=== PATIENT | male | born 1965 | race Caucasian/White ===

== ENCOUNTER 2019-02-18 10:42 | Inpatient (IN) | payer MEDICARE, OTHER ==
[~2019-02-18] VITALS: Ht 165.1 cm; Wt 77.0 kg
[~2019-02-18 10:42] MED LIST: Accu-Chek Test Strip XX; CARV6.25 PO; FER325 PO; FURO40TA4 PO; NPH,100V SC
[2019-02-18] MEDS ORDERED: ACETAMINOPHEN 325 MG TAB PO STA (10:56)
[2019-02-18] MEDS ORDERED: morphine 4 MG/ML VIAL IV STA (10:56)
[2019-02-18] MEDS ORDERED: CEFEPIME 2GM/50 ML (PMX) 50 ML IVPB STA (10:56)
[2019-02-18] MEDS ORDERED: ONDANSETRON 4 MG INJ IV STA (10:56)
[2019-02-18] MEDS ORDERED: SODIUM CHLORIDE 0.9% 1L BAG IV* STA (10:56)
[2019-02-18] MEDS ORDERED: VANCOMYCIN 1 GM (PMX) 250 ML IVPB ONE (11:00)
[2019-02-18] MEDS ORDERED: ASPI81TA52 PO (11:16)
[2019-02-18] MEDS ORDERED: CALC667C PO (11:16)
[2019-02-18] MEDS ORDERED: ATOR40TA68 PO (11:17)
[2019-02-18] MEDS ORDERED: AMLO-147 PO (11:17)
[2019-02-18] MEDS ORDERED: CARV25TA79 PO (11:17)
[2019-02-18] MEDS ORDERED: GLIP10TA14 PO (11:18)
[2019-02-18] MEDS ORDERED: INSU100I33 SC (11:18)
--- NOTE | 2019-02-18 12:14 | ERD ---
ER Documentation Chief Complaint Chief Complaint chills, body aches, ap, diualysis yesterday HPI 53-year-old male who presents to the emergency with family members who are interpreting. The patient describes approximately 24 hours of symptoms including fevers, chills, body aches. Possible generalized abdominal pain with mild nausea. No diarrhea or constipation. The patient is a dialysis patient with last dialysis yesterday. ROS All systems reviewed and are negative except as per history of present illness. Medications Home Meds Reported Medications Insulin Glargine,Hum.rec.anlog (Basaglar Kwikpen U-100) 100 Unit/1 Ml Insuln.pen, 20 UNIT SC QHS, EA 02/18/19 Glipizide* (Glipizide*) 10 Mg Tablet, 10 MG PO AC BREAKFAST DINNER, TAB 02/18/19 Atorvastatin* (Atorvastatin*) 40 Mg Tablet, 40 MG PO QHS, #30 TAB 02/18/19 Carvedilol* (Carvedilol*) 25 Mg Tablet, 25 MG PO BID, #60 TAB 02/18/19 Amlodipine Besylate* (Amlodipine Besylate*) 10 Mg Tablet, 10 MG PO DAILY, #30 TAB 02/18/19 Calcium Acetate* (Calcium Acetate*) 667 Mg Capsule, 667 MG PO WITH LUNCH, #30 CAP 02/18/19 Aspirin (Low Dose Aspirin) 81 Mg Tablet.dr, 81 MG PO DAILY, #30 TAB 02/18/19 Discontinued Scripts Nph, Human Insulin Isophane (Humulin N) 100 Unit/Ml Solution, 18 UNIT SC BID for 30 Days, VIAL 3 Refills Prov:RASANGITA,ELIZABETH S. 01/26/15 Ferrous Sulfate* (Ferrous Sulfate*) 325 Mg Tabec, 325 MG PO DAILY for 30 Days, 2 Refills Prov:RAHI,ELIZABETH S. 01/26/15 Carvedilol* (Coreg*) 6.25 Mg Tab, 6.25 MG PO BID for 30 Days, 2 Refills Prov:RAHI,ELIZABETH S. 01/26/15 Furosemide (Lasix) 40 Mg Tab, 40 MG PO DAILY for 30 Days, TAB 1 Refill Prov:NHUNG SMITHELIZABETH S. 01/26/15 [Accu-Chek Test Strip] 1 EA EA No Conflict Check, 1 EA XX 02 for 30 Days, EA 2 Refills Prov:ELIZABETH SMITH 01/26/15 Allergies Allergies: Coded Allergies: No Known Allergy (Unverified , 02/18/19) PMhx/Soc History of Surgery: Yes (PICC line placement, dialysis catheter on right upper chest wall) Anesthesia Reaction: No Hx Neurological Disorder: No Hx Respiratory Disorders: No Hx Cardiac Disorders: Yes (HTN, high cholesterol) Hx Psychiatric Problems: No Hx Miscellaneous Medical Probl: Yes (DM, ESRD) Hx Alcohol Use: No Hx Substance Use: No Hx Tobacco Use: No Smoking Status: Never smoker FmHx Family History: diabetes Physical Exam Vitals Vital Signs Date Temp Pulse Resp B/P (MAP) Pulse Ox O2 O2 Flow FiO2 Time Delivery Rate 02/18/19 114 25 124/78 98 Nasal 3.0 12:00 (93) Cannula 02/18/19 103.0 11:43 02/18/19 Nasal 2 11:21 Cannula 02/18/19 103.9 113 18 143/81 99 10:47 (101) Physical Exam General: Well developed, well nourished, no acute distress Head: Normocephalic, atraumatic. Eyes: Pupils equally reactive, EOM intact ENT: Moist mucous membranes Neck: Supple, no lymphadenopathy Respiratory: Lungs clear bilaterally, no distress Cardiovascular: RRR, no murmurs, rubs, or gallops Abdominal: Soft, non-tender, non-distended, no peritoneal signs : Deferred MSK: No edema, no unilateral swelling, 5/5 strength, right upper extremity AV fistula with good bruit and thrill Neurologic: Alert and oriented, moving all extremities, normal speech, no focal weakness, no cerebellar signs Skin: No rash Psych: Normal mood Result Diagram: 02/18/19 1130 02/18/19 1130 Results 24 hrs Laboratory Tests Test 02/18/19 11:17 02/18/19 11:30 POC Venous Lactate 2.7 mmol/L White Blood Count 16.0 10^3/ul Red Blood Count 3.60 10^6/ul Hemoglobin 11.2 g/dl Hematocrit 31.5 % Mean Corpuscular Volume 87.5 fl Mean Corpuscular Hemoglobin 31.1 pg Mean Corpuscular Hemoglobin Concent 35.6 g/dl Red Cell Distribution Width 13.3 % Platelet Count 143 10^3/UL Mean Platelet Volume 11.0 fl Immature Granulocytes % 0.600 % Neutrophils % 89.2 % Lymphocytes % 4.2 % Monocytes % 5.7 % Eosinophils % 0.0 % Basophils % 0.3 % Nucleated Red Blood Cells % 0.0 /100WBC Immature Granulocytes # 0.090 10^3/ul Neutrophils # 14.3 10^3/ul Lymphocytes # 0.7 10^3/ul Monocytes # 0.9 10^3/ul Eosinophils # 0.0 10^3/ul Basophils # 0.1 10^3/ul Nucleated Red Blood Cells # 0.0 10^3/ul Sodium Level 138 mmol/L Potassium Level 4.4 mmol/L Chloride Level 91 mmol/L Carbon Dioxide Level 34 mmol/L Anion Gap 13 Blood Urea Nitrogen 29 mg/dl Creatinine 4.95 mg/dl Est Glomerular Filtrat Rate mL/min 12 mL/min Glucose Level 195 mg/dl Calcium Level 8.7 mg/dl Total Bilirubin 0.7 mg/dl Direct Bilirubin 0.00 mg/dl Indirect Bilirubin 0.7 mg/dl Aspartate Amino Transf (AST/SGOT) 41 IU/L Alanine Aminotransferase (ALT/SGPT) 20 IU/L Alkaline Phosphatase 55 IU/L Troponin I < 0.012 ng/ml Total Protein 8.4 g/dl Albumin 4.3 g/dl Globulin 4.10 g/dl Albumin/Globulin Ratio 1.04 Lipase 92 U/L Current Medications Medications Dose Sig/Steve Start Time Status Last (Trade) Ordered Route PRN Stop Time Admin Dose Reason Admin Sodium 2,300 ml BOLUS OVER 2 02/18/19 DC 02/18/19 Chloride HOURS STAT 10:56 02/18/19 11:42 (NS) IV* 10:57 650 mg ONCE STAT 02/18/19 DC 02/18/19 Acetaminophen PO 10:56 02/18/19 11:43 (Tylenol 10:57 Tab) Morphine 4 mg ONCE STAT 02/18/19 DC 02/18/19 Sulfate IV 10:56 02/18/19 11:43 (morphine) 10:57 Ondansetron 4 mg ONCE STAT 02/18/19 DC 02/18/19 HCl (Zofran IV 10:56 02/18/19 11:42 Inj) 10:57 Cefepime HCl 50 ml @ ONCE STAT 02/18/19 DC 02/18/19 100 mls/hr IVPB 10:56 02/18/19 11:43 11:25 Vancomycin 250 ml @ ONCE ONCE 02/18/19 HCl 125 mls/hr IVPB 11:00 02/18/19 12:59 Ondansetron 4 mg ER BRIDGE 02/18/19 HCl (Zofran PRN IV 12:30 02/19/19 Inj) NAUSEA/VOMITI 12:29 NG 650 mg ER BRIDGE 02/18/19 Acetaminophen PRN PO 12:30 02/19/19 (Tylenol .MILD PAIN 12:29 Tab) 1-3 OR TEMP Procedures/MDM EKG, MONITORS, & DIAGNOSTIC IMAGING: EKG: I reviewed and interpreted a 12-lead EKG. Rhythm: Normal sinus rhythm ST Changes: No contiguous ST segment elevations T waves: No contiguous T wave inversions Impression: [No evidence of acute cardiac ischemia] Chest x-ray: I reviewed and interpreted a 1 view of the chest Mediastinum: No enlargement Cardiac silhouette: No cardiomegaly Airspace: Clear lung john bilaterally without evidence of pneumothorax Bones: No evidence of fracture CT abdomen and pelvis: IMPRESSION: 1. Mild atrophic kidneys with mild renal cortical scarring. 2. Bilateral multiple small 2-4 mm non-obstructing calcified calculi. No obstructive uropathy bilaterally. 3. No gastrointestinal disease. 4. Tiny fat containing umbilical hernia without herniated hour strangulation. LAB INTERPRETATION: I reviewed the laboratory testing and it shows leukocytosis, elevated lactic acid MEDICAL DECISION MAKING: Patient presents to the emergency room with fever, Sirs criteria and multiple complaints including myalgia. The patient does have increased risk for bacteremia including dialysis. However, no clear source at this time. No evidence of meningitis. Patient having mild abdominal pain. CT imaging appropriate. Sepsis screening was initiated. ER COURSE: * The patient seems to be tolerating fluid bolus nicely. Blood cultures prior to broad-spectrum antibiotics. Antipyretics provided. Vital signs improving. * Patient continues to protect his airway * No clear source of infection at this time. Continue to monitor but the patient does not meet septic criteria in the emergency room setting given no source of infection. CONSULTATION: [None] DISPOSITION PLAN: Accepting care team and consultations: I discussed the current laboratory data, diagnostic imaging and emergency care provided. Admitting team: Dr. Swartz Admitting team indication: Insurance directed Of note the patient does have Sirs in the emergency room but no clear source of infection. Empiric treatment was initiated. Departure Diagnosis: Primary Impression: SIRS (systemic inflammatory response syndrome) Additional Impression: End stage renal disease on dialysis Condition: Stable SUZANNE ARCOS MD Feb 18, 2019 12:14
[2019-02-18] MEDS ORDERED: ONDANSETRON 4 MG INJ IV PRN ×2 (12:30→13:00)
[2019-02-18] MEDS ORDERED: ACETAMINOPHEN 325 MG TAB PO PRN (12:30)
[2019-02-18] MEDS ORDERED: NACL 0.9% 3 ML SYG IV SCH (13:00)
[2019-02-18] MEDS ORDERED: morphine 2 MG INJ IV PRN (13:00)
[2019-02-18] MEDS ORDERED: HYDROCODONE/APAP (5/325) TAB PO PRN (13:00)
[2019-02-18] MEDS ORDERED: VANCOMYCIN IV PER PHARMACY XX SCH (13:00)
[2019-02-18] MEDS: SOD CHLORIDE 0.9% 1,000 ML IV SCH (14:18)
[2019-02-18] MEDS ORDERED: VANCOMYCIN 500 MG (PMX) 100 ML IVPB ONE (15:00)
[2019-02-18] MEDS: PIPER-TAZO 2.25 GM (PMX) 50 ML IVPB SCH ×2 (16:33→20:34)
[2019-02-18] MEDS: ACETAMINOPHEN 325 MG TAB PO PRN (17:44)
[2019-02-18] MEDS ORDERED: PIPER-TAZO 3.375 GM IV (PMX) 100 ML IVPB SCH (18:00)
[2019-02-18 18:31] VITALS: BP 114/68; PULSE 102; RESP 18
[2019-02-18 20:00] VITALS: BP 105/50; PULSE 98; RESP 19; Ht 165.1 cm; Wt 77.0 kg
[2019-02-18] MEDS ORDERED: FAMOTIDINE 20 MG INJ IV SCH (21:00)
--- NOTE | 2019-02-18 21:49 | QN ---
Documentation Comment pt was seen and examined DANA CASAS MD Feb 18, 2019 21:49
--- NOTE | 2019-02-18 22:28 | CONS ---
DATE OF ADMISSION: 02/18/2019 DATE OF CONSULTATION: 02/18/2019 TYPE OF CONSULTATION: Renal. REASON FOR CONSULTATION: Hemodialysis. HISTORY OF PRESENTING ILLNESS: This is a 53-year-old male with a history of end-stage renal disease on hemodialysis Friday, and Friday for past 1 year, followed at [facility] hypertension, hyperlipidemia, diabetes, presented to the emergency department complaining of fever s and chills for past 2 to 3 days. According to the patient, the patient had some little abdominal p ain with mild nausea. The patient has had PermCath for 1 year. The patient had a left upper extremi ty fistula. He has been followed by Dr. Moran as an outpatient. It has not been yet used. The patie nt denied any vomiting, diarrhea or any shortness of breath. On arrival to ED, fevers were 103.9, bl ood pressure was 143/81. Labs showed white count of 16.0, hemoglobin 11.2, platelet count 143, potas sium of 4.4, BUN 129 and creatinine 4.95. Lactate was 2.7. CT of the abdomen and pelvis was negativ e. Chest x-ray was negative and the patient was admitted for further management. PAST MEDICAL HISTORY: 1. End-stage renal disease on hemodialysis Friday, and Friday, followed on [facility]. 2. Diabetes. 3. Hypertension. 4. Hyperlipidemia. 5. Diabetes with complication or diabetic retinopathy, nephropathy. MEDICATIONS TAKING AT HOME: 1. Amlodipine 10. 2. Atorvastatin 40. 3. Coreg 25 b.i.d. 4. Aspirin 81. 5. Calcium acetate 667 with meals. 6. Glipizide 10 mg p.o. at breakfast. 7. Lantus 20 units at bedtime. SOCIAL HISTORY: Ex-drinker. Denies any history of smoking, any drug use. Currently lives at home w ith family. FAMILY HISTORY: Noncontributory. REVIEW OF SYSTEMS: The patient complained of generalized body aches, fevers and chills. Last dialys is was yesterday. Denied any cough, any shortness of breath. Has some mild abdominal pain. Denies any nausea, vomiting, any hematemesis, any melena, any bright red blood per rectum. PHYSICAL EXAMINATION: VITAL SIGNS: Initially shows temperature 103.9, pulse was 113, blood pressure 143/81. GENERAL: The patient is awake, alert, oriented, does not appear to in any distress. HEENT: Pupils are equal, round, reactive to light. NECK: Supple. No JVD. HEART: Tachycardic. LUNGS: Clear to auscultation bilaterally. ABDOMEN: Soft, nontender, nondistended, positive normoactive bowel sounds. EXTREMITIES: No clubbing, cyanosis or edema. The patient has a right PermCath in place, also has a left upper extremity fistula. The fistula is deep; however, has some bruit. LABORATORY DATA: Potassium 4.4, BUN of 129, creatinine 4.95. Lactic acid 2.7. Glucose 197. AST 41 , ALT 20. Lipase is 92. White count 16.0, hemoglobin 11.2, platelet count . DIAGNOSTIC DATA: CT of the abdomen and pelvis is negative. Chest x-ray: No evidence of any acute c ardiopulmonary process. ASSESSMENT AND PLAN: This is a 53-year-old male presented with: 1. Fevers, tachycardia, likely secondary to systemic inflammatory response syndrome. CT of the abdo men and pelvis shows questionable gastroenteritis; however, we need to rule out PermCath infection. We also need to rule out urinary tract infection. 2. Leukocytosis secondary to #1. 3. Lactic acidosis. 4. History of hypertension, currently normotensive. 5. Diabetes. 6. End-stage renal disease on hemodialysis. 7. Secondary hyperparathyroidism. PLAN: At this period of time, the patient will be admitted to telemetry. I agree with continuing th e patient on vancomycin and Zosyn. We will also check left upper extremity ultrasound to check for a rterial Doppler, fistula patency. The patient had hemodialysis yesterday. We will continue the hemo dialysis for tomorrow. I agree with gentle IV fluids. We will follow up on the blood cultures. I r ecommend calling Dr. Mccallum for vascular consultation. Rest of the treatment will depend on the patie nt on hospitalization course. Dictated By: DANA CASAS RB/MERARY Conf#: [id number] DID#: [id number] CC: WILL MADRID MD;*EndCC*
[2019-02-18] MEDS ORDERED: GLUCOSE GEL 15 GRAM TUBE PO PRN ×2 (22:30)
[2019-02-18] MEDS ORDERED: GLUCOSE GEL 15 GRAM TUBE BUCCAL PRN (22:30)
[2019-02-18] MEDS ORDERED: DEXTROSE 50% 50 ML SYRINGE IV PRN ×2 (22:30)
[2019-02-18] MEDS ORDERED: GLUCAGON 1 MG INJ IM PRN (22:30)
[2019-02-19] VITALS (19 sets, daily range): BP systolic 98–157; BP diastolic 55–90; PULSE 60–103; RESP 16–22
[2019-02-19] MEDS: ACCU-CHEK XX SCH (02:00)
[2019-02-19] MEDS: ACETAMINOPHEN 325 MG TAB PO PRN ×2 (06:06→13:27)
[2019-02-19] MEDS: PIPER-TAZO 2.25 GM (PMX) 50 ML IVPB SCH ×3 (06:06→21:17)
[2019-02-19] MEDS: INSULIN ASPART [NOVOLOG] 3 ML PEN SC SCH ×4 (08:00→21:25)
[2019-02-19] MEDS ORDERED: HEPARIN 1000 UNITS/ML 10 ML INJ CATHETER SCH (09:00)
--- NOTE | 2019-02-19 09:49 | HP ---
Date/Time of Note Date/Time of Note DATE: 02/18/19 TIME: 09:42 Assessment/Plan VTE Prophylaxis Risk score (from Nsg)>0 risk: 1 SCD applied (from Nsg): Yes Pharmacological prophylaxis: other Lines/Catheters IV Catheter Type (from Nrsg): Peripheral IV Assessment/Plan Hospital Course This history and physical was intended for February 18, 2019 HPI Patient is a male with past medical history significant for end-stage renal disease on hemodialysis who presents to [facility] after new onset fevers, chills, body aches, mild shortness of breath and dizziness. Patient also complains of abdominal pain with nausea and vomiting that began yesterday that is intermittent. Patient denies any chest pain, neck pain, leg pain. Patient states that he is having diarrhea. Objective Physical exam General: Patient is laying in bed and answers questions appropriately Mentation: Patient is alert and oriented 4, Head: Normocephalic atraumatic Eyes: EOMI, pupils reactive to light Neck: Supple, nontender, midline Respiratory: Clear to auscultation bilaterally Cardiovascular: regular rate, no obvious murmurs Gastrointestinal: non-tender to palpation, bowel sounds heard. Neurological: Moves all extremities spontaneously Skin: No new skin lesions Assessment and plan Sepsis -Possibly secondary to GI versus bacteremia -Cultures -IV fluid -IV antibiotic Diarrhea and nausea -Possibly a component of gastroenteritis -CT negative for acute issues, however will continue antibiotics due to above sepsis End-stage renal disease on hemodialysis -Nephrology consulted Fevers, chills, body aches -Likely secondary to above sepsis -Continue IV antibiotic -Awaiting cultures Disposition -Await cultures, continue IV fluids, continue IV antibiotic Result Diagram: 02/19/19 0454 02/19/19 0454 Results 24hrs Laboratory Tests Test 02/18/19 11:17 02/18/19 11:30 02/18/19 13:58 02/18/19 16:44 POC Venous Lactate 2.7 *H White Blood Count 16.0 #H Red Blood Count 3.60 L Hemoglobin 11.2 L Hematocrit 31.5 L Mean Corpuscular Volume 87.5 Mean Corpuscular 31.1 Hemoglobin Mean Corpuscular 35.6 Hemoglobin Concent Red Cell Distribution 13.3 # Width Platelet Count 143 Mean Platelet Volume 11.0 #H Immature Granulocytes % 0.600 H Neutrophils % 89.2 H Lymphocytes % 4.2 L Monocytes % 5.7 Eosinophils % 0.0 Basophils % 0.3 Nucleated Red Blood 0.0 Cells % Immature Granulocytes # 0.090 H Neutrophils # 14.3 H Lymphocytes # 0.7 L Monocytes # 0.9 Eosinophils # 0.0 Basophils # 0.1 Nucleated Red Blood 0.0 Cells # Prothrombin Time 14.8 Prothrombin Time Ratio 1.2 INR International 1.15 Normalized Ratio Activated 34.8 Partial Thromboplast Time Sodium Level 138 Potassium Level 4.4 Chloride Level 91 L Carbon Dioxide Level 34 H Anion Gap 13 Blood Urea Nitrogen 29 H Creatinine 4.95 H Est Glomerular Filtrat 12 L Rate mL/min Glucose Level 195 Calcium Level 8.7 Total Bilirubin 0.7 Direct Bilirubin 0.00 Indirect Bilirubin 0.7 Aspartate Amino 41 Transf (AST/SGOT) Alanine 20 Aminotransferase (ALT/SG PT) Alkaline Phosphatase 55 Troponin I < 0.012 Total Protein 8.4 H Albumin 4.3 Globulin 4.10 H Albumin/Globulin Ratio 1.04 Lipase 92 Lactic Acid Level 1.2 1.1 Test 02/18/19 22:20 02/19/19 02:07 02/19/19 04:54 02/19/19 08:37 Urine Color YELLOW Urine Clarity CLEAR Urine pH 8.0 Urine Specific [place] 1.012 Urine Ketones NEGATIVE Urine Nitrite NEGATIVE Urine Bilirubin NEGATIVE Urine Urobilinogen NEGATIVE Urine Leukocyte Esterase NEGATIVE Urine Microscopic RBC 6 H Urine Microscopic WBC 3 Urine Bacteria MANY A Urine Hemoglobin 1+ H Urine Glucose 1+ H Urine Total Protein 3+ H Bedside Glucose 129 154 White Blood Count 8.0 # Red Blood Count 3.09 L Hemoglobin 9.5 L Hematocrit 27.3 L Mean Corpuscular Volume 88.3 Mean Corpuscular 30.7 Hemoglobin Mean Corpuscular 34.8 Hemoglobin Concent Red Cell Distribution 13.8 Width Platelet Count 107 #L Mean Platelet Volume 10.6 H Immature Granulocytes % 0.900 H Neutrophils % 88.9 H Lymphocytes % 5.5 L Monocytes % 4.3 Eosinophils % 0.0 Basophils % 0.4 Nucleated Red Blood 0.0 Cells % Immature Granulocytes # 0.070 H Neutrophils # 7.1 Lymphocytes # 0.4 L Monocytes # 0.3 Eosinophils # 0.0 Basophils # 0.0 Nucleated Red Blood 0.0 Cells # Sodium Level 140 Potassium Level 3.3 L Chloride Level 104 # Carbon Dioxide Level 26 Anion Gap 10 Blood Urea Nitrogen 36 H Creatinine 5.85 H Est Glomerular Filtrat 10 L Rate mL/min Glucose Level 103 # Hemoglobin A1c 6.9 H Calcium Level 6.8 L Magnesium Level 1.4 L Total Bilirubin 0.5 Direct Bilirubin 0.00 Indirect Bilirubin 0.5 Aspartate Amino 29 Transf (AST/SGOT) Alanine 27 Aminotransferase (ALT/SG PT) Alkaline Phosphatase 36 L Total Protein 6.4 # Albumin 3.1 #L Globulin 3.30 H Albumin/Globulin Ratio 0.93 Triglycerides Level 162 H Cholesterol Level 132 LDL Cholesterol, 79 Calculated HDL Cholesterol 21 L Cholesterol/HDL Ratio 6.2 Thyroid Stimulating 0.925 Hormone (TSH) HPI/ROS Admit Date/Time Admit Date/Time Feb 18, 2019 at 12:24 PMH/Family/Social Past Medical History Medications Current Medications Sodium Chloride 1,000 ml @ 40 mls/hr Q24H IV Last administered on 02/18/19at 14:18; Admin Dose 40 MLS/HR; Start 02/18/19 at 12:48; Stop 02/19/19 at 13:47 IV Flush (NS 3 ml) 3 ml PER PROTOCOL IV ; Start 02/18/19 at 13:00 Ondansetron HCl (Zofran Inj) 4 mg Q6H PRN IV NAUSEA/VOMITING Last administered on 02/18/19at 22:50; Admin Dose 4 MG; Start 02/18/19 at 13:00 Acetaminophen (Tylenol Tab) 650 mg Q6H PRN PO .PAIN 1-3 OR TEMP Last administered on 02/19/19 06:06; Admin Dose 650 MG; Start 02/18/19 at 13:00 Acetaminophen/ Hydrocodone Bitart ([place] (5/325)) 1 tab Q6H PRN PO .PAIN 4-6; Start 02/18/19 at 13:00 Morphine Sulfate (morphine) 2 mg Q4H PRN IV .PAIN 7-10 Last administered on 02/18/19at 22:57; Admin Dose 2 MG; Start 02/18/19 at 13:00 Famotidine (Pepcid Iv) 20 mg Q24H IV Last administered on 02/18/19at 20:34; Admin Dose 20 MG; Start 02/18/19 at 21:00 Vancomycin HCl (Vanco Iv Per Pharmacy) VANCOMYCIN PER PHARMACY PER PROTOCOL XX ; Start 02/18/19 at 13:00 Piperacillin Sod/ Tazobactam Sod 50 ml @ 100 mls/hr Q8 IVPB Last administered on 02/19/19at 06:06; Admin Dose 100 MLS/HR; Start 02/18/19 at 14:00 Miscellaneous Information (*Rx Drug Level Order Reminder*) VANCOMYCIN RANDOM ON 02/20 W/... 0500 ONCE XX ; Start 02/20/19 at 05:00; Stop 02/20/19 at 05:01 Calcium Acetate (Phoslo) 667 mg WITH LUNCH PO ; Start 02/19/19 at 12:00 Diagnostic Test (Pha) (Accu-Chek) 1 ea 02 XX ; Start 02/19/19 at 02:00 Insulin Aspart (Novolog Insulin Pen) NOVOLOG *MILD* ALGORITHM WITH MEALS BEDTIME SC ; Start 02/19/19 at 08:00 Miscellaneous Information 1 ea NOTE XX ; Start 02/18/19 at 22:30 Glucose (Glutose) 15 gm Q15M PRN PO DECREASED GLUCOSE; Start 02/18/19 at 22:30 Glucose (Glutose) 22.5 gm Q15M PRN PO DECREASED GLUCOSE; Start 02/18/19 at 22:30 Dextrose (D50w Syringe) 25 ml Q15M PRN IV DECREASED GLUCOSE; Start 02/18/19 at 22:30 Dextrose (D50w Syringe) 50 ml Q15M PRN IV DECREASED GLUCOSE; Start 02/18/19 at 22:30 Glucagon (Glucagen) 1 mg Q15M PRN IM DECREASED GLUCOSE; Start 02/18/19 at 22:30 Glucose (Glutose) 15 gm Q15M PRN BUCCAL DECREASED GLUCOSE; Start 02/18/19 at 22:30 Heparin Sodium (Porcine) (Heparin (1000 Units/ml)) 4,100 unit AFTER DIALYSIS CATHETER ; Start 02/19/19 at 09:00 Magnesium Sulfate 50 ml @ 25 mls/hr ONCE ONCE IVPB ; Start 02/19/19 at 10:00; Stop 02/19/19 at 11:59; Status UNV Coded Allergies: No Known Allergy (Unverified , 02/18/19) Family History Significant Family History: no pertinent family hx Social History Smoking Status: Never smoker Exam/Review of Systems Vital Signs Vitals Vital Signs Date Temp Pulse Resp B/P (MAP) Pulse Ox O2 O2 Flow FiO2 Time Delivery Rate 02/19/19 2.0 09:08 02/19/19 99.1 89 22 108/65 96 Room Air 08:10 (79) Intake and Output 02/18/19 02/18/19 02/19/19 1414:59 22:59 06:59 IntakeIntake Total 50 ml 1340 ml OutputOutput Total 850 ml BalanceBalance 50 ml 490 ml WILL MADRID Feb 19, 2019 09:49
[2019-02-19] MEDS ORDERED: MAGNESIUM SULFATE 2 GM/50 ML 50 ML IVPB ONE (10:00)
--- NOTE | 2019-02-19 13:03 | CONS ---
DATE OF ADMISSION: 02/18/2019 DATE OF CONSULTATION: 02/19/2019 TYPE OF CONSULTATION: Infectious disease. REASON FOR CONSULTATION: Antibiotic management. HISTORY OF PRESENT ILLNESS: Jesus Ye is a 53-year-old male who presents to the Emergency Room with chills and body aches. He has end-stage renal disease on hemodialysis. He complains of g eneralized abdominal pain with mild nausea, no diarrhea or constipation. He has a PICC line placed a nd a dialysis catheter in the right upper chest wall. Other problems include hypertension, hyperchol esterolemia, diabetes, as well as end-stage renal disease. PAST MEDICAL HISTORY: As outlined. FAMILY HISTORY: Positive for diabetes. SOCIAL HISTORY: He does not smoke, drink or abuse drugs. ALLERGIES: None to penicillin, sulfa or foods. MEDICATIONS: Per chart. REVIEW OF SYSTEMS: As per HPI. HOSPITAL COURSE: On admission, his temperature is 103.9. His white count was 16,000 with 89% neutro phils, H and H 11.2/31.5, platelet count 143,000. BUN and creatinine 29/4.95. MEDICATIONS: The patient is on: 1. Vancomycin. 2. Cefepime. IMAGING: Chest x-ray shows clear lung john bilaterally without evidence of pneumothorax. CT scan of the abdomen and pelvis shows mild atrophic kidneys with mild renal cortical scarring bilateral mul tiple small 2 to 4 mm nonobstructing calcified calculi. No obstructive uropathy bilaterally. No gas trointestinal disease, tiny fat-containing umbilical hernias without herniation or strangulation. PHYSICAL EXAMINATION: GENERAL: This is a well-developed, well-nourished male in no acute distress. VITAL SIGNS: T-max 103.9, pulse of 113, respirations up to 25, consistent with systemic inflammatory response syndrome. SKIN: Without generalized rash. HEENT: Within normal limits. NECK: Supple. LYMPH NODES: None palpable. CHEST: Decreased breath sounds at the bases. HEART: Without murmur or gallop. ABDOMEN: Soft without organosplenomegaly or masses. EXTREMITIES: He has a right upper extremity AV fistula with good bruit and thrill. He has a PICC li ne in place. RECTAL AND GENITAL: Deferred. NEUROLOGIC: No focal neurological abnormalities. Patient was started on vancomycin and cefepime. C T scan of the abdomen and pelvis shows mildly atrophic kidneys with mild renal cortical scarring, natalia ateral multiple small 2 to 4 mm nonobstructing calculi as previously outlined. Blood cultures were d one. The patient has Staphylococcus aureus x2 in his blood. Chest x-ray, lung volume is decreased f rom 03/15/2015. Patient is status post tunneled right IJ central venous catheter. The patient has had a Perm-A-Cath for 1 year. He has a left upper extremity fistula, was followed by Dr. Moran as an outpatient. IMPRESSION AND PLAN: I believe that his Perm-A-Cath will have to be removed since he has positive bl ood cultures and is bacteremic. I doubt that the AV fistula is the source, so I would have to assume that we are dealing with an infected Perm-A-Cath. I will dictate my findings to the hospitalists. Dictated By: COCO CHAKRABORTY MD, JD/MERARY Conf#: [id number] DID#: [id number] CC: WILL MADRID MD;*EndCC*
--- NOTE | 2019-02-19 13:09 | CONS ---
[facility] HCIS Consult Follow-up Patient Name: Jesus Ye Unit Number: [id number] Date of : 1965 Patient Status: Admitted Inpatient Attending Doctor: Harjinder Swartz Edit: DANA CASAS MD on 02/19/19 @ 15:41 pt seen and examined arterial us Ordered permacath removal fu bld cx Assessment/Plan Assessment/Plan Hospital Course (Demo Recall) 1. End-stage renal disease on hemodialysis. 2. Sepsis with leukocytosis and lactic acidosis 3.Negative urinary tract infection, UA neg. Urine culture negative. 4. History of hypertension, currently normotensive. 5. Diabetes mellitus controlled. 6. Fevers, tachycardia, likely secondary to systemic inflammatory response syndrome/sepsis. CT of the abdomen and pelvis shows questionable gastroenteritis; however, we need to rule out PermCath infection. 7. Secondary hyperparathyroidism. 8. Overweight 9. Normocytic normochromic anemia Assessment/Plan (Daily) - telemetry. -c/w vancomycin and Zosyn. - for arterial Doppler, fistula patency showed: Elevated velocities in the distal graft and at the venous anastomosis of the graft, suggesting stenosis. -c/w hemodialysis, one today. - blood cultures pos. for Staph. -need vascular consultation. -c/w Phoslo -parathyroid studies Consultation Date/Type/Reason Admit Date/Time Feb 18, 2019 at 12:24 Initial Consult Date 02/18/2019 Type of Consult nephrology Date/Time of Note DATE: 02/19/19 TIME: 12:59 24 HR Interval Summary Constitutional: chills Exam/Review of Systems Exam Vitals Vital Signs Date Temp Pulse Resp B/P (MAP) Pulse Ox O2 O2 Flow FiO2 Time Delivery Rate 02/19/19 94 12:45 02/19/19 98.7 22 143/80 96 Room Air 12:01 (101) 02/19/19 2.0 09:45 Intake and Output 02/18/19 02/18/19 02/19/19 1515:00 23:00 07:00 IntakeIntake Total 50 ml 1340 ml OutputOutput Total 850 ml BalanceBalance 50 ml 490 ml Exam right chest Permcath and Left arm AV fistula Constitutional: alert, oriented Neck: supple Respiratory: diminished breath sounds Cardiovascular: regular rate and rhythm Gastrointestinal: soft Results Result Diagram: 02/19/19 0454 02/19/19 0454 Results 24hrs Laboratory Tests Test 02/18/19 13:58 02/18/19 16:44 02/18/19 22:20 02/19/19 02:07 Lactic Acid Level 1.2 1.1 Urine Color YELLOW Urine Clarity CLEAR Urine pH 8.0 Urine Specific [place] 1.012 Urine Ketones NEGATIVE Urine Nitrite NEGATIVE Urine Bilirubin NEGATIVE Urine Urobilinogen NEGATIVE Urine Leukocyte Esterase NEGATIVE Urine Microscopic RBC 6 H Urine Microscopic WBC 3 Urine Bacteria MANY A Urine Hemoglobin 1+ H Urine Glucose 1+ H Urine Total Protein 3+ H Bedside Glucose 129 Test 02/19/19 04:50 02/19/19 04:54 02/19/19 08:37 02/19/19 11:39 Hepatitis B Surface NEGATIVE Antigen White Blood Count 8.0 # Red Blood Count 3.09 L Hemoglobin 9.5 L Hematocrit 27.3 L Mean Corpuscular Volume 88.3 Mean Corpuscular 30.7 Hemoglobin Mean Corpuscular 34.8 Hemoglobin Concent Red Cell Distribution 13.8 Width Platelet Count 107 #L Mean Platelet Volume 10.6 H Immature Granulocytes % 0.900 H Neutrophils % 88.9 H Lymphocytes % 5.5 L Monocytes % 4.3 Eosinophils % 0.0 Basophils % 0.4 Nucleated Red Blood 0.0 Cells % Immature Granulocytes # 0.070 H Neutrophils # 7.1 Lymphocytes # 0.4 L Monocytes # 0.3 Eosinophils # 0.0 Basophils # 0.0 Nucleated Red Blood 0.0 Cells # Sodium Level 140 Potassium Level 3.3 L Chloride Level 104 # Carbon Dioxide Level 26 Anion Gap 10 Blood Urea Nitrogen 36 H Creatinine 5.85 H Est Glomerular Filtrat 10 L Rate mL/min Glucose Level 103 # Hemoglobin A1c 6.9 H Calcium Level 6.8 L Magnesium Level 1.4 L Total Bilirubin 0.5 Direct Bilirubin 0.00 Indirect Bilirubin 0.5 Aspartate Amino 29 Transf (AST/SGOT) Alanine 27 Aminotransferase (ALT/SG PT) Alkaline Phosphatase 36 L Total Protein 6.4 # Albumin 3.1 #L Globulin 3.30 H Albumin/Globulin Ratio 0.93 Triglycerides Level 162 H Cholesterol Level 132 LDL Cholesterol, 79 Calculated HDL Cholesterol 21 L Cholesterol/HDL Ratio 6.2 Thyroid Stimulating 0.925 Hormone (TSH) Bedside Glucose 154 108 Medications Medication Current Medications Sodium Chloride 1,000 ml @ 40 mls/hr Q24H IV Last administered on 02/18/19at 14:18; Admin Dose 40 MLS/HR; Start 02/18/19 at 12:48; Stop 02/19/19 at 13:47 IV Flush (NS 3 ml) 3 ml PER PROTOCOL IV ; Start 02/18/19 at 13:00 Ondansetron HCl (Zofran Inj) 4 mg Q6H PRN IV NAUSEA/VOMITING Last administered on 02/18/19at 22:50; Admin Dose 4 MG; Start 02/18/19 at 13:00 Acetaminophen (Tylenol Tab) 650 mg Q6H PRN PO .PAIN 1-3 OR TEMP Last administe red on 02/19/19at 06:06; Admin Dose 650 MG; Start 02/18/19 at 13:00 Acetaminophen/ Hydrocodone Bitart ([place] (5/325)) 1 tab Q6H PRN PO .PAIN 4-6; Start 02/18/19 at 13:00 Morphine Sulfate (morphine) 2 mg Q4H PRN IV .PAIN 7-10 Last administered on 02/18/19at 22:57; Admin Dose 2 MG; Start 02/18/19 at 13:00 Famotidine (Pepcid Iv) 20 mg Q24H IV Last administered on 02/18/19at 20:34; Admin Dose 20 MG; Start 02/18/19 at 21:00 Vancomycin HCl (Vanco Iv Per Pharmacy) VANCOMYCIN PER PHARMACY PER PROTOCOL XX ; Start 02/18/19 at 13:00 Piperacillin Sod/ Tazobactam Sod 50 ml @ 100 mls/hr Q8 IVPB Last administered on 02/19/19at 06:06; Admin Dose 100 MLS/HR; Start 02/18/19 at 14:00 Miscellaneous Information (*Rx Drug Level Order Reminder*) VANCOMYCIN RANDOM ON 02/20 W/... 0500 ONCE XX ; Start 02/20/19 at 05:00; Stop 02/20/19 at 05:01 Calcium Acetate (Phoslo) 667 mg WITH LUNCH PO ; Start 02/19/19 at 12:00 Diagnostic Test (Pha) (Accu-Chek) 1 ea 02 XX ; Start 02/19/19 at 02:00 Insulin Aspart (Novolog Insulin Pen) NOVOLOG *MILD* ALGORITHM WITH MEALS BEDTIME SC ; Start 02/19/19 at 08:00 Miscellaneous Information 1 ea NOTE XX ; Start 02/18/19 at 22:30 Glucose (Glutose) 15 gm Q15M PRN PO DECREASED GLUCOSE; Start 02/18/19 at 22:30 Glucose (Glutose) 22.5 gm Q15M PRN PO DECREASED GLUCOSE; Start 02/18/19 at 22:30 Dextrose (D50w Syringe) 25 ml Q15M PRN IV DECREASED GLUCOSE; Start 02/18/19 at 22:30 Dextrose (D50w Syringe) 50 ml Q15M PRN IV DECREASED GLUCOSE; Start 02/18/19 at 22:30 Glucagon (Glucagen) 1 mg Q15M PRN IM DECREASED GLUCOSE; Start 02/18/19 at 22:30 Glucose (Glutose) 15 gm Q15M PRN BUCCAL DECREASED GLUCOSE; Start 02/18/19 at 22:30 Heparin Sodium (Porcine) (Heparin (1000 Units/ml)) 4,100 unit AFTER DIALYSIS CATHETER Last administered on 02/19/19at 12:53; Admin Dose 4,100 UNIT; Start 02/19/19 at 09:00 PENNY FISCHER Feb 19, 2019 13:09
[2019-02-19] MEDS: CALCIUM ACETATE 667 MG CAP PO SCH (13:26)
--- NOTE | 2019-02-19 13:48 | PN ---
Date/Time of Note Date/Time of Note DATE: 02/19/19 TIME: 13:42 Objective Vitals Vital Signs Date Temp Pulse Resp B/P (MAP) Pulse Ox O2 O2 Flow FiO2 Time Delivery Rate 02/19/19 103 16 119/82 98 Nasal 2.0 12:55 (94) Cannula 02/19/19 98.7 12:01 Intake and Output 02/18/19 02/18/19 02/19/19 1515:00 23:00 07:00 IntakeIntake Total 50 ml 1340 ml OutputOutput Total 850 ml BalanceBalance 50 ml 490 ml Results Result Diagram: 02/19/19 0454 02/19/19 0454 Medications Medications Current Medications Sodium Chloride 1,000 ml @ 40 mls/hr Q24H IV Last administered on 02/18/19at 14:18; Admin Dose 40 MLS/HR; Start 02/18/19 at 12:48; Stop 02/19/19 at 13:47 IV Flush (NS 3 ml) 3 ml PER PROTOCOL IV ; Start 02/18/19 at 13:00 Ondansetron HCl (Zofran Inj) 4 mg Q6H PRN IV NAUSEA/VOMITING Last administered on 02/18/19at 22:50; Admin Dose 4 MG; Start 02/18/19 at 13:00 Acetaminophen (Tylenol Tab) 650 mg Q6H PRN PO .PAIN 1-3 OR TEMP Last administered on 02/19/19at 13:27; Admin Dose 650 MG; Start 02/18/19 at 13:00 Acetaminophen/ Hydrocodone Bitart ([place] (5/325)) 1 tab Q6H PRN PO .PAIN 4-6; Start 02/18/19 at 13:00 Morphine Sulfate (morphine) 2 mg Q4H PRN IV .PAIN 7-10 Last administered on 02/18/19at 22:57; Admin Dose 2 MG; Start 02/18/19 at 13:00 Famotidine (Pepcid Iv) 20 mg Q24H IV Last administered on 02/18/19at 20:34; Admin Dose 20 MG; Start 02/18/19 at 21:00 Vancomycin HCl (Vanco Iv Per Pharmacy) VANCOMYCIN PER PHARMACY PER PROTOCOL XX ; Start 02/18/19 at 13:00 Piperacillin Sod/ Tazobactam Sod 50 ml @ 100 mls/hr Q8 IVPB Last administered on 02/19/19at 13:27; Admin Dose 100 MLS/HR; Start 02/18/19 at 14:00 Miscellaneous Information (*Rx Drug Level Order Reminder*) VANCOMYCIN RANDOM ON 02/20 W/... 0500 ONCE XX ; Start 02/20/19 at 05:00; Stop 02/20/19 at 05:01 Calcium Acetate (Phoslo) 667 mg WITH LUNCH PO Last administered on 02/19/19at 13:26; Admin Dose 667 MG; Start 02/19/19 at 12:00 Diagnostic Test (Pha) (Accu-Chek) 1 ea 02 XX ; Start 02/19/19 at 02:00 Insulin Aspart (Novolog Insulin Pen) NOVOLOG *MILD* ALGORITHM WITH MEALS BEDTIME SC ; Start 02/19/19 at 08:00 Miscellaneous Information 1 ea NOTE XX ; Start 02/18/19 at 22:30 Glucose (Glutose) 15 gm Q15M PRN PO DECREASED GLUCOSE; Start 02/18/19 at 22:30 Glucose (Glutose) 22.5 gm Q15M PRN PO DECREASED GLUCOSE; Start 02/18/19 at 22:30 Dextrose (D50w Syringe) 25 ml Q15M PRN IV DECREASED GLUCOSE; Start 02/18/19 at 22:30 Dextrose (D50w Syringe) 50 ml Q15M PRN IV DECREASED GLUCOSE; Start 02/18/19 at 22:30 Glucagon (Glucagen) 1 mg Q15M PRN IM DECREASED GLUCOSE; Start 02/18/19 at 22:30 Glucose (Glutose) 15 gm Q15M PRN BUCCAL DECREASED GLUCOSE; Start 02/18/19 at 22:30 Heparin Sodium (Porcine) (Heparin (1000 Units/ml)) 4,100 unit AFTER DIALYSIS CATHETER Last administered on 02/19/19at 12:53; Admin Dose 4,100 UNIT; Start 02/19/19 at 09:00 VTE Prophylaxis Risk score (from Nsg)>0 risk: 1 SCD applied (from Nsg): Yes Lines/Catheters IV Catheter Type: Hearn in Place: No Assessment/Plan Hospital Course Subjective Patient feels better than yesterday however still feels weak Objective Physical exam General: Patient is laying in bed and answers questions appropriately Mentation: Patient is alert and oriented 4, Head: Normocephalic atraumatic Eyes: EOMI, pupils reactive to light Neck: Supple, nontender, midline Respiratory: Clear to auscultation bilaterally Cardiovascular: regular rate, no obvious murmurs Gastrointestinal: non-tender to palpation, bowel sounds heard. Neurological: Moves all extremities spontaneously Skin: No new skin lesions Assessment and plan Sepsis -Secondary to bacteremia -Cultures -IV fluid as needed -IV antibiotic Staph aureus bacteremia -Continue anabiotic's -Infectious disease consulted -We will need to remove permacath as this is the likely source of infection. We will remove today after dialysis. We will give a break over the weekend to ensure eradication of staff and then reinsert Dung on Friday to dialyze temporary before new permacath placed sometime midweek next week. Diarrhea and nausea, resolving -Possibly a component of gastroenteritis -CT negative for acute issues, however will continue antibiotics due to above sepsis End-stage renal disease on hemodialysis -Nephrology consulted Fevers, chills, body aches -Likely secondary to above sepsis -Continue IV antibiotic -Resolving Immature left arm fistula -Vascular surgeon has been consulted, patient received this 3 months ago but was told that it was not ready yet. -US showing stenosis, will consult patient's vascular group. Disposition -Awaiting infectious disease and vascular surgeon for recommendations WILL MADRID Feb 19, 2019 13:48
[2019-02-19] MEDS: SOD CHLORIDE 0.9% 1,000 ML IV SCH (16:52)
--- NOTE | 2019-02-19 18:41 | CONS ---
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 * 02/18/19 CT: 1. Mild atrophic kidneys with mild renal cortical scarring.2. Bilateral multiple small 2-4 mm non-obstructing calcified calculi. No obstructive uropathy bilaterally.3. No gastrointestinal disease.4. Tiny fat containing umbilical hernia without herniated hour strangulation. MICRO * 02/18/19 BCX (+) 2/2 bottles: BLOOD CULTURE Preliminary BCULT GRAM BOTTLE 1 Gram positive cocci in clusters 1 of 2 bottles . seen on gram stain of the broth BCULT GRAM BOTTLE 2 Gram positive cocci in clusters 2 of 2 bottles . seen on gram stain of the broth Organism 1 STAPHYLOCOCCUS AUREUS PHYSICAL EXAMINATION: GENERAL: VSS, NAD HEENT: AT, NC, NECK: Supple, CHEST: Rise symmetrical HEART: Pulse RRR ABDOMEN: Benign EXTREMITIES: Warm, dry == left lower ext dsg c/d/i SKIN: No rash, no diaphoresis ID ASSESSMENT 53 yo M admit with: Sepsis associated w/fevers/chills/N/V prior to admission * -Secondary to STAPH bacteremia ==> PermCath line infx suspected and now removed Staph aureus bacteremia-> Line sepsis -- pending final ID C&S DM w/polyneuropathies: Renal, suspect Gastroparesis Nausea w/emesis -- likely related to sepsis, suspect gastroparesis => CT (-)for acute gastroenteritis/gastric ESRD-> HD * LINE HOLIDAY --> PLAN reinsert Dung on Friday to dialyze temporary before new PermCath placed sometime midweek next week. * Immature left arm fistula Tiny fat containing umbilical hernia without herniated hour strangulation. Bilateral multiple small 2-4 mm non-obstructing calcified calculi. No obstructive uropathy bilaterally Hx of remote hepatic abscess-> s/p 01/23/2015 CT-guided drainage of liver abscess ABX ALLERGIES: KNDA INVASIVES: PIV CURRENT ABX: DAY # =>>Vanco IV + Cefepime ID RECOMMENDATIONS/PLAN: 1. Continue current ABX -awaiting FINAL micro 2. LINE HOLIDAY --> PLAN reinsert Dung on Friday to dialyze temporary before new PermCath placed sometime midweek next week. . Consultation Date/Type/Reason Admit Date/Time Feb 18, 2019 at 12:24 Initial Consult Date Date/Time of Note DATE: 02/19/19 TIME: 18:29 Exam/Review of Systems Exam Vitals Vital Signs Date Temp Pulse Resp B/P (MAP) Pulse Ox O2 O2 Flow FiO2 Time Delivery Rate 02/19/19 98.6 86 22 128/73 96 Nasal 3.0 17:00 (91) Cannula Intake and Output 02/18/19 02/18/19 02/19/19 1515:00 23:00 07:00 IntakeIntake Total 50 ml 1340 ml OutputOutput Total 850 ml BalanceBalance 50 ml 490 ml Results Result Diagram: 02/19/19 0454 02/19/19 0454 Results 24hrs Laboratory Tests Test 02/18/19 22:20 02/19/19 02:07 02/19/19 04:50 02/19/19 04:54 Urine Color YELLOW Urine Clarity CLEAR Urine pH 8.0 Urine Specific [place] 1.012 Urine Ketones NEGATIVE Urine Nitrite NEGATIVE Urine Bilirubin NEGATIVE Urine Urobilinogen NEGATIVE Urine Leukocyte Esterase NEGATIVE Urine Microscopic RBC 6 H Urine Microscopic WBC 3 Urine Bacteria MANY A Urine Hemoglobin 1+ H Urine Glucose 1+ H Urine Total Protein 3+ H Bedside Glucose 129 Hepatitis B Surface NEGATIVE Antigen White Blood Count 8.0 # Red Blood Count 3.09 L Hemoglobin 9.5 L Hematocrit 27.3 L Mean Corpuscular Volume 88.3 Mean Corpuscular 30.7 Hemoglobin Mean Corpuscular 34.8 Hemoglobin Concent Red Cell Distribution 13.8 Width Platelet Count 107 #L Mean Platelet Volume 10.6 H Immature Granulocytes % 0.900 H Neutrophils % 88.9 H Lymphocytes % 5.5 L Monocytes % 4.3 Eosinophils % 0.0 Basophils % 0.4 Nucleated Red Blood 0.0 Cells % Immature Granulocytes # 0.070 H Neutrophils # 7.1 Lymphocytes # 0.4 L Monocytes # 0.3 Eosinophils # 0.0 Basophils # 0.0 Nucleated Red Blood 0.0 Cells # Sodium Level 140 Potassium Level 3.3 L Chloride Level 104 # Carbon Dioxide Level 26 Anion Gap 10 Blood Urea Nitrogen 36 H Creatinine 5.85 H Est Glomerular Filtrat 10 L Rate mL/min Glucose Level 103 # Hemoglobin A1c 6.9 H Calcium Level 6.8 L Magnesium Level 1.4 L Total Bilirubin 0.5 Direct Bilirubin 0.00 Indirect Bilirubin 0.5 Aspartate Amino 29 Transf (AST/SGOT) Alanine 27 Aminotransferase (ALT/SG PT) Alkaline Phosphatase 36 L Total Protein 6.4 # Albumin 3.1 #L Globulin 3.30 H Albumin/Globulin Ratio 0.93 Triglycerides Level 162 H Cholesterol Level 132 LDL Cholesterol, 79 Calculated HDL Cholesterol 21 L Cholesterol/HDL Ratio 6.2 Thyroid Stimulating 0.925 Hormone (TSH) Test 02/19/19 08:37 02/19/19 11:39 02/19/19 17:14 Bedside Glucose 154 108 253 H Medications Medication Current Medications IV Flush (NS 3 ml) 3 ml PER PROTOCOL IV ; Start 02/18/19 at 13:00 Ondansetron HCl (Zofran Inj) 4 mg Q6H PRN IV NAUSEA/VOMITING Last administered on 02/18/19at 22:50; Admin Dose 4 MG; Start 02/18/19 at 13:00 Acetaminophen (Tylenol Tab) 650 mg Q6H PRN PO .PAIN 1-3 OR TEMP Last administered on 02/19/19 13:27; Admin Dose 650 MG; Start 02/18/19 at 13:00 Acetaminophen/ Hydrocodone Bitart ([place] (5/325)) 1 tab Q6H PRN PO .PAIN 4-6; Start 02/18/19 at 13:00 Morphine Sulfate (morphine) 2 mg Q4H PRN IV .PAIN 7-10 Last administered on 02/18/19 22:57; Admin Dose 2 MG; Start 02/18/19 at 13:00 Vancomycin HCl (Vanco Iv Per Pharmacy) VANCOMYCIN PER PHARMACY PER PROTOCOL XX ; Start 02/18/19 at 13:00 Piperacillin Sod/ Tazobactam Sod 50 ml @ 100 mls/hr Q8 IVPB Last administered on 7/5/19at 13:27; Admin Dose 100 MLS/HR; Start 02/18/19 at 14:00 Miscellaneous Information (*Rx Drug Level Order Reminder*) VANCOMYCIN RANDOM ON 02/20 W/... 0500 ONCE XX ; Start 02/20/19 at 05:00; Stop 02/20/19 at 05:01 Calcium Acetate (Phoslo) 667 mg WITH LUNCH PO Last administered on 02/19/19at 13:26; Admin Dose 667 MG; Start 02/19/19 at 12:00 Diagnostic Test (Pha) (Accu-Chek) 1 ea 02 XX ; Start 02/19/19 at 02:00 Insulin Aspart (Novolog Insulin Pen) NOVOLOG *MILD* ALGORITHM WITH MEALS BEDTIME SC ; Start 02/19/19 at 08:00 Miscellaneous Information 1 ea NOTE XX ; Start 02/18/19 at 22:30 Glucose (Glutose) 15 gm Q15M PRN PO DECREASED GLUCOSE; Start 02/18/19 at 22:30 Glucose (Glutose) 22.5 gm Q15M PRN PO DECREASED GLUCOSE; Start 02/18/19 at 22:30 Dextrose (D50w Syringe) 25 ml Q15M PRN IV DECREASED GLUCOSE; Start 02/18/19 at 22:30 Dextrose (D50w Syringe) 50 ml Q15M PRN IV DECREASED GLUCOSE; Start 02/18/19 at 22:30 Glucagon (Glucagen) 1 mg Q15M PRN IM DECREASED GLUCOSE; Start 02/18/19 at 22:30 Glucose (Glutose) 15 gm Q15M PRN BUCCAL DECREASED GLUCOSE; Start 02/18/19 at 22:30 Heparin Sodium (Porcine) (Heparin (1000 Units/ml)) 4,100 unit AFTER DIALYSIS CATHETER Last administered on 02/19/19at 12:53; Admin Dose 4,100 UNIT; Start 02/19/19 at 09:00 Famotidine (Pepcid) 20 mg HS PO ; Start 02/19/19 at 21:00 RA MARTINEZ NP Feb 19, 2019 18:40
[2019-02-19] MEDS: FAMOTIDINE 20 MG TAB PO SCH (21:16)
[2019-02-20] VITALS (7 sets, daily range): BP systolic 104–157; BP diastolic 59–82; PULSE 67–99; RESP 18–20
[2019-02-20] MEDS: ACETAMINOPHEN 325 MG TAB PO PRN ×2 (00:16→23:56)
[2019-02-20] MEDS: ACCU-CHEK XX SCH (02:00)
[2019-02-20] MEDS ORDERED: VANCOMYCIN RANDOM W/ AM LAB XX ONE (05:00)
[2019-02-20] MEDS: PIPER-TAZO 2.25 GM (PMX) 50 ML IVPB SCH ×2 (06:21→13:52)
[2019-02-20] MEDS: INSULIN ASPART [NOVOLOG] 3 ML PEN SC SCH ×4 (07:33→22:29)
--- NOTE | 2019-02-20 10:05 | CONS ---
Assessment/Plan Assessment/Plan Hospital Course (Demo Recall) esrd infected permacath removed. 3 months s/p left arm fistula creation OK to try to use the left arm fistula 1 more time. If unable to cannulate with 2 needles, please replace permacath and follow up with dr. Moran in 2-3 weeks. Thank you. Consultation Date/Type/Reason Admit Date/Time Feb 18, 2019 at 12:24 Date of Consultation: Feb 20, 2019 Type of Consult Vascular Surgery Reason for Consultation esrd, fistula maturation Date/Time of Note DATE: 02/20/19 TIME: 10:00 Hx of Present Illness pt admitted for fevers and chills. Bacteremia noted and infected permacath removed for suspicion of infection. Left arm fistula created by dr. Moran 3 months ago still on small side, but patent. used 1 needle in the fistula, but could not get cannulation with 2nd needle. Now on catheter vacation and antibiotics. Constitutional: chills, febrile ENT: No bleeding, No pain Respiratory: No pain Cardiovascular: No chest pain Gastrointestinal: No pain, No blood Genitourinary: No bleeding, No dysuria Musculoskeletal: No back pain Skin: No bruising, No erythema Neurologic: No confusion, No dizziness Past Medical History Home Meds Reported Medications Insulin Glargine,Hum.rec.anlog (Basaglar Kwikpen U-100) 100 Unit/1 Ml Insuln .pen, 20 UNIT SC QHS, EA 02/18/19 Glipizide* (Glipizide*) 10 Mg Tablet, 10 MG PO AC BREAKFAST DINNER, TAB 02/18/19 Atorvastatin* (Atorvastatin*) 40 Mg Tablet, 40 MG PO QHS, #30 TAB 02/18/19 Carvedilol* (Carvedilol*) 25 Mg Tablet, 25 MG PO BID, #60 TAB 02/18/19 Amlodipine Besylate* (Amlodipine Besylate*) 10 Mg Tablet, 10 MG PO DAILY, #30 TAB 02/18/19 Calcium Acetate* (Calcium Acetate*) 667 Mg Capsule, 667 MG PO WITH LUNCH, #30 CAP 02/18/19 Aspirin (Low Dose Aspirin) 81 Mg Tablet.dr, 81 MG PO DAILY, #30 TAB 02/18/19 Discontinued Scripts Nph, Human Insulin Isophane (Humulin N) 100 Unit/Ml Solution, 18 UNIT SC BID for 30 Days, VIAL 3 Refills Prov:ELIZABETH SMITH S. 01/26/15 Ferrous Sulfate* (Ferrous Sulfate*) 325 Mg Tabec, 325 MG PO DAILY for 30 Days, 2 Refills Prov:ELIZABETH SMITH S. 01/26/15 Carvedilol* (Coreg*) 6.25 Mg Tab, 6.25 MG PO BID for 30 Days, 2 Refills Prov:KAITLYN SMITHEEP S. 01/26/15 Furosemide (Lasix) 40 Mg Tab, 40 MG PO DAILY for 30 Days, TAB 1 Refill Prov:ELIZABETH SMITH S. 01/26/15 [Accu-Chek Test Strip] 1 EA EA No Conflict Check, 1 EA XX 02 for 30 Days, EA 2 Refills Prov:ELIZABETH SMITH S. 01/26/15 Medications Current Medications IV Flush (NS 3 ml) 3 ml PER PROTOCOL IV ; Start 02/18/19 at 13:00 Ondansetron HCl (Zofran Inj) 4 mg Q6H PRN IV NAUSEA/VOMITING Last administered on 02/18/19at 22:50; Admin Dose 4 MG; Start 02/18/19 at 13:00 Acetaminophen (Tylenol Tab) 650 mg Q6H PRN PO .PAIN 1-3 OR TEMP Last administered on 02/20/19at 00:16; Admin Dose 650 MG; Start 02/18/19 at 13:00 Acetaminophen/ Hydrocodone Bitart ([place] (5/325)) 1 tab Q6H PRN PO .PAIN 4-6; Start 02/18/19 at 13:00 Morphine Sulfate (morphine) 2 mg Q4H PRN IV .PAIN 7-10 Last administered on 02/18/19at 22:57; Admin Dose 2 MG; Start 02/18/19 at 13:00 Vancomycin HCl (Vanco Iv Per Pharmacy) VANCOMYCIN PER PHARMACY PER PROTOCOL XX ; Start 02/18/19 at 13:00 Piperacillin Sod/ Tazobactam Sod 50 ml @ 100 mls/hr Q8 IVPB Last administered on 02/20/19at 06:21; Admin Dose 100 MLS/HR; Start 02/18/19 at 14:00 Calcium Acetate (Phoslo) 667 mg WITH LUNCH PO Last administered on 02/19/19at 13:26; Admin Dose 667 MG; Start 02/19/19 at 12:00 Diagnostic Test (Pha) (Accu-Chek) 1 ea 02 XX ; Start 02/19/19 at 02:00 Insulin Aspart (Novolog Insulin Pen) NOVOLOG *MILD* ALGORITHM WITH MEALS BEDTIME SC Last administered on 02/19/19at 21:25; Admin Dose 1 UNIT; Start 02/19/19 at 08:00 Miscellaneous Information 1 ea NOTE XX ; Start 02/18/19 at 22:30 Glucose (Glutose) 15 gm Q15M PRN PO DECREASED GLUCOSE; Start 02/18/19 at 22:30 Glucose (Glutose) 22.5 gm Q15M PRN PO DECREASED GLUCOSE; Start 02/18/19 at 22:30 Dextrose (D50w Syringe) 25 ml Q15M PRN IV DECREASED GLUCOSE; Start 02/18/19 at 22:30 Dextrose (D50w Syringe) 50 ml Q15M PRN IV DECREASED GLUCOSE; Start 02/18/19 at 22:30 Glucagon (Glucagen) 1 mg Q15M PRN IM DECREASED GLUCOSE; Start 02/18/19 at 22:30 Glucose (Glutose) 15 gm Q15M PRN BUCCAL DECREASED GLUCOSE; Start 02/18/19 at 22:30 Heparin Sodium (Porcine) (Heparin (1000 Units/ml)) 4,100 unit AFTER DIALYSIS CATHETER Last administered on 02/19/19at 12:53; Admin Dose 4,100 UNIT; Start 02/19/19 at 09:00 Famotidine (Pepcid) 20 mg HS PO Last administered on 02/19/19at 21:16; Admin Dose 20 MG; Start 02/19/19 at 21:00 Allergies: Coded Allergies: No Known Allergy (Unverified , 02/18/19) Past Surgical History Past Surgical Hx: other (Left arm brachiocephalic AVF creation 3 months ago) Social History Smoking Status: Never smoker Exam/Review of Systems Exam Vitals Vital Signs Date Temp Pulse Resp B/P (MAP) Pulse Ox O2 O2 Flow FiO2 Time Delivery Rate 02/20/19 98.2 67 20 119/70 96 07:26 (86) 02/20/19 2.0 27 01:58 02/19/19 Nasal 17:00 Cannula Intake and Output 02/19/19 02/19/19 02/20/19 1515:00 23:00 07:00 IntakeIntake Total 50 ml 560 ml 1100 ml OutputOutput Total 1500 ml 350 ml BalanceBalance -1450 ml 560 ml 750 ml Constitutional: alert, oriented, well developed Psych: no complaints Head: normocephalic, atraumatic Eyes: nl conjunctiva ENMT: nl lips & teeth Neck: supple, non-tender Respiratory: clear to auscultation, normal air movement Cardiovascular: nl pulses Gastrointestinal: soft Musculoskeletal: nl extremities to inspection Extremities: normal pulses Neurological: [employer] II-XII intact, nl mental status Additional Comments Left arm fistula with good thrill, slightly small, nonpulsatile, slightly deep. Pulsatile with central compression. Results Result Diagram: 02/20/19 0457 02/20/19 045 Results 24hrs Laboratory Tests Test 02/19/19 11:39 02/19/19 17:14 02/19/19 19:00 02/19/19 21:16 Bedside Glucose 108 253 H 279 H 210 Test 02/20/19 04:33 02/20/19 04:57 02/20/19 07:29 Bedside Glucose 170 131 White Blood Count 4.6 #L Red Blood Count 2.95 L Hemoglobin 8.9 L Hematocrit 25.7 L Mean Corpuscular Volume 87.1 Mean Corpuscular 30.2 Hemoglobin Mean Corpuscular 34.6 Hemoglobin Concent Red Cell Distribution 13.4 Width Platelet Count 101 L Mean Platelet Volume 11.4 H Immature Granulocytes % 0.400 Neutrophils % 74.2 Lymphocytes % 14.8 L Monocytes % 8.7 Eosinophils % 1.5 Basophils % 0.4 Nucleated Red Blood 0.0 Cells % Immature Granulocytes # 0.020 Neutrophils # 3.4 Lymphocytes # 0.7 L Monocytes # 0.4 Eosinophils # 0.1 Basophils # 0.0 Nucleated Red Blood 0.0 Cells # Sodium Level 139 Potassium Level 4.0 Chloride Level 104 Carbon Dioxide Level 26 Anion Gap 9 Blood Urea Nitrogen 32 H Creatinine 5.75 H Est Glomerular Filtrat 10 L Rate mL/min Glucose Level 158 Calcium Level 8.8 Magnesium Level 2.4 # Parathyroid Hormone 54.3 Random Vancomycin Level 9.8 Medications Medication Current Medications IV Flush (NS 3 ml) 3 ml PER PROTOCOL IV ; Start 02/18/19 at 13:00 Ondansetron HCl (Zofran Inj) 4 mg Q6H PRN IV NAUSEA/VOMITING Last administered on 02/18/19at 22:50; Admin Dose 4 MG; Start 02/18/19 at 13:00 Acetaminophen (Tylenol Tab) 650 mg Q6H PRN PO .PAIN 1-3 OR TEMP Last administered on 02/20/19at 00:16; Admin Dose 650 MG; Start 02/18/19 at 13:00 Acetaminophen/ Hydrocodone Bitart ([place] (5/325)) 1 tab Q6H PRN PO .PAIN 4-6; Start 02/18/19 at 13:00 Morphine Sulfate (morphine) 2 mg Q4H PRN IV .PAIN 7-10 Last administered on 02/18/19at 22:57; Admin Dose 2 MG; Start 02/18/19 at 13:00 Vancomycin HCl (Vanco Iv Per Pharmacy) VANCOMYCIN PER PHARMACY PER PROTOCOL XX ; Start 02/18/19 at 13:00 Piperacillin Sod/ Tazobactam Sod 50 ml @ 100 mls/hr Q8 IVPB Last administered on 02/20/19at 06:21; Admin Dose 100 MLS/HR; Start 02/18/19 at 14:00 Calcium Acetate (Phoslo) 667 mg WITH LUNCH PO Last administered on 02/19/19at 13:26; Admin Dose 667 MG; Start 02/19/19 at 12:00 Diagnostic Test (Pha) (Accu-Chek) 1 ea 02 XX ; Start 02/19/19 at 02:00 Insulin Aspart (Novolog Insulin Pen) NOVOLOG *MILD* ALGORITHM WITH MEALS BEDTIME SC Last administered on 02/19/19at 21:25; Admin Dose 1 UNIT; Start 02/19/19 at 08:00 Miscellaneous Information 1 ea NOTE XX ; Start 02/18/19 at 22:30 Glucose (Glutose) 15 gm Q15M PRN PO DECREASED GLUCOSE; Start 02/18/19 at 22:30 Glucose (Glutose) 22.5 gm Q15M PRN PO DECREASED GLUCOSE; Start 02/18/19 at 22:30 Dextrose (D50w Syringe) 25 ml Q15M PRN IV DECREASED GLUCOSE; Start 02/18/19 at 22:30 Dextrose (D50w Syringe) 50 ml Q15M PRN IV DECREASED GLUCOSE; Start 02/18/19 at 22:30 Glucagon (Glucagen) 1 mg Q15M PRN IM DECREASED GLUCOSE; Start 02/18/19 at 22:30 Glucose (Glutose) 15 gm Q15M PRN BUCCAL DECREASED GLUCOSE; Start 02/18/19 at 22:30 Heparin Sodium (Porcine) (Heparin (1000 Units/ml)) 4,100 unit AFTER DIALYSIS CATHETER Last administered on 02/19/19at 12:53; Admin Dose 4,100 UNIT; Start 02/19/19 at 09:00 Famotidine (Pepcid) 20 mg HS PO Last administered on 02/19/19at 21:16; Admin Dose 20 MG; Start 02/19/19 at 21:00 KULDIP GONZALEZ MD Feb 20, 2019 10:05
--- NOTE | 2019-02-20 11:20 | CONS ---
Assessment/Plan Assessment/Plan Hospital Course (Demo Recall) 1. End-stage renal disease on hemodialysis. 2. Sepsis with leukocytosis and lactic acidosis 3. Negative urinary tract infection, UA neg. Urine culture negative. 4. History of hypertension, currently normotensive. 5. Diabetes mellitus controlled. 6. Fevers, tachycardia, likely secondary to systemic inflammatory response syndrome/sepsis. CT of the abdomen and pelvis shows questionable ga stroenteritis; however, we need to rule out PermCath infection. 7. Normocytic normochromic anemia 2/2 chronic kidney disaease 8. Overweight Assessment/Plan (Daily) -c/w vancomycin and Zosyn. -start epogen - for arterial Doppler, fistula patency showed: Elevated velocities in the distal graft and at the venous anastomosis of the graft, suggesting stenosis. -c/w hemodialysis - blood cultures pos. for Staph. - vascular consultation: removed Permcath. -c/w Phoslo -parathyroid studies: calcium is normal, PTH is normal Consultation Date/Type/Reason Admit Date/Time Feb 18, 2019 at 12:24 Initial Consult Date 02/18/2019 Type of Consult nephrology Date/Time of Note DATE: 02/20/19 TIME: 11:18 24 HR Interval Summary Constitutional: improved Exam/Review of Systems Exam Vitals Vital Signs Date Temp Pulse Resp B/P (MAP) Pulse Ox O2 O2 Flow FiO2 Time Delivery Rate 02/20/19 98.2 67 20 119/70 96 07:26 (86) 02/20/19 2.0 27 01:58 02/19/19 Nasal 17:00 Cannula Intake and Output 02/19/19 02/19/19 02/20/19 1515:00 23:00 07:00 IntakeIntake Total 50 ml 560 ml 1100 ml OutputOutput Total 1500 ml 350 ml BalanceBalance -1450 ml 560 ml 750 ml Exam perm cath removed, left arm av fistula Psych: no complaints Head: normocephalic Eyes: nl conjunctiva ENMT: nl external ears & nose Respiratory: clear to auscultation Cardiovascular: regular rate and rhythm Gastrointestinal: soft Results Result Diagram: 02/20/19 0457 02/20/19 0457 Results 24hrs Laboratory Tests Test 02/19/19 11:39 02/19/19 17:14 02/19/19 19:00 02/19/19 21:16 Bedside Glucose 108 253 H 279 H 210 Test 02/20/19 04:33 02/20/19 04:57 02/20/19 07:29 Bedside Glucose 170 131 White Blood Count 4.6 #L Red Blood Count 2.95 L Hemoglobin 8.9 L Hematocrit 25.7 L Mean Corpuscular Volume 87.1 Mean Corpuscular 30.2 Hemoglobin Mean Corpuscular 34.6 Hemoglobin Concent Red Cell Distribution 13.4 Width Platelet Count 101 L Mean Platelet Volume 11.4 H Immature Granulocytes % 0.400 Neutrophils % 74.2 Lymphocytes % 14.8 L Monocytes % 8.7 Eosinophils % 1.5 Basophils % 0.4 Nucleated Red Blood 0.0 Cells % Immature Granulocytes # 0.020 Neutrophils # 3.4 Lymphocytes # 0.7 L Monocytes # 0.4 Eosinophils # 0.1 Basophils # 0.0 Nucleated Red Blood 0.0 Cells # Sodium Level 139 Potassium Level 4.0 Chloride Level 104 Carbon Dioxide Level 26 Anion Gap 9 Blood Urea Nitrogen 32 H Creatinine 5.75 H Est Glomerular Filtrat 10 L Rate mL/min Glucose Level 158 Uric Acid 3.2 Calcium Level 8.8 Phosphorus Level 3.2 Magnesium Level 2.4 # Parathyroid Hormone 54.3 Random Vancomycin Level 9.8 Medications Medication Current Medications IV Flush (NS 3 ml) 3 ml PER PROTOCOL IV ; Start 02/18/19 at 13:00 Ondansetron HCl (Zofran Inj) 4 mg Q6H PRN IV NAUSEA/VOMITING Last administered on 02/18/19at 22:50; Admin Dose 4 MG; Start 02/18/19 at 13:00 Acetaminophen (Tylenol Tab) 650 mg Q6H PRN PO .PAIN 1-3 OR TEMP Last adminis tered on 02/20/19at 00:16; Admin Dose 650 MG; Start 02/18/19 at 13:00 Acetaminophen/ Hydrocodone Bitart ([place] (5/325)) 1 tab Q6H PRN PO .PAIN 4-6; Start 02/18/19 at 13:00 Morphine Sulfate (morphine) 2 mg Q4H PRN IV .PAIN 7-10 Last administered on 02/18/19at 22:57; Admin Dose 2 MG; Start 02/18/19 at 13:00 Vancomycin HCl (Vanco Iv Per Pharmacy) VANCOMYCIN PER PHARMACY PER PROTOCOL XX ; Start 02/18/19 at 13:00 Piperacillin Sod/ Tazobactam Sod 50 ml @ 100 mls/hr Q8 IVPB Last administered on 02/20/19at 06:21; Admin Dose 100 MLS/HR; Start 02/18/19 at 14:00 Calcium Acetate (Phoslo) 667 mg WITH LUNCH PO Last administered on 02/19/19at 13:26; Admin Dose 667 MG; Start 02/19/19 at 12:00 Diagnostic Test (Pha) (Accu-Chek) 1 ea 02 XX ; Start 02/19/19 at 02:00 Insulin Aspart (Novolog Insulin Pen) NOVOLOG *MILD* ALGORITHM WITH MEALS BEDTIME SC Last administered on 02/19/19at 21:25; Admin Dose 1 UNIT; Start 02/19 at 08:00 Miscellaneous Information 1 ea NOTE XX ; Start 02/18/19 at 22:30 Glucose (Glutose) 15 gm Q15M PRN PO DECREASED GLUCOSE; Start 02/18/19 at 22:30 Glucose (Glutose) 22.5 gm Q15M PRN PO DECREASED GLUCOSE; Start 02/18/19 at 22:30 Dextrose (D50w Syringe) 25 ml Q15M PRN IV DECREASED GLUCOSE; Start 02/18/19 at 22:30 Dextrose (D50w Syringe) 50 ml Q15M PRN IV DECREASED GLUCOSE; Start 02/18/19 at 22:30 Glucagon (Glucagen) 1 mg Q15M PRN IM DECREASED GLUCOSE; Start 02/18/19 at 22:30 Glucose (Glutose) 15 gm Q15M PRN BUCCAL DECREASED GLUCOSE; Start 02/18/19 at 22:30 Heparin Sodium (Porcine) (Heparin (1000 Units/ml)) 4,100 unit AFTER DIALYSIS CATHETER Last administered on 02/19/19at 12:53; Admin Dose 4,100 UNIT; Start 02/19/19 at 09:00 Famotidine (Pepcid) 20 mg HS PO Last administered on 02/19/19at 21:16; Admin Dose 20 MG; Start 02/19/19 at 21:00 PENNY FISCHER Feb 20, 2019 11:20
[2019-02-20] MEDS: CALCIUM ACETATE 667 MG CAP PO SCH (11:24)
--- NOTE | 2019-02-20 12:50 | PN ---
Date/Time of Note Date/Time of Note DATE: 02/20/19 TIME: 12:50 Objective Vitals Vital Signs Date Temp Pulse Resp B/P (MAP) Pulse Ox O2 O2 Flow FiO2 Time Delivery Rate 02/20/19 98.1 73 20 130/78 98 11:36 (95) 02/20/19 2.0 27 01:58 02/19/19 Nasal 17:00 Cannula Intake and Output 02/19/19 02/19/19 02/20/19 1515:00 23:00 07:00 IntakeIntake Total 50 ml 560 ml 1100 ml OutputOutput Total 1500 ml 350 ml BalanceBalance -1450 ml 560 ml 750 ml Results Result Diagram: 02/20/19 0457 02/20/19 0457 Medications Medications Current Medications IV Flush (NS 3 ml) 3 ml PER PROTOCOL IV ; Start 02/18/19 at 13:00 Ondansetron HCl (Zofran Inj) 4 mg Q6H PRN IV NAUSEA/VOMITING Last administered on 02/18/19at 22:50; Admin Dose 4 MG; Start 02/18/19 at 13:00 Acetaminophen (Tylenol Tab) 650 mg Q6H PRN PO .PAIN 1-3 OR TEMP Last administered on 02/20/19at 00:16; Admin Dose 650 MG; Start 02/18/19 at 13:00 Acetaminophen/ Hydrocodone Bitart ([place] (5/325)) 1 tab Q6H PRN PO .PAIN 4-6; Start 02/18/19 at 13:00 Morphine Sulfate (morphine) 2 mg Q4H PRN IV .PAIN 7-10 Last administered on 02/18/19at 22:57; Admin Dose 2 MG; Start 02/18/19 at 13:00 Vancomycin HCl (Vanco Iv Per Pharmacy) VANCOMYCIN PER PHARMACY PER PROTOCOL XX ; Start 02/18/19 at 13:00 Piperacillin Sod/ Tazobactam Sod 50 ml @ 100 mls/hr Q8 IVPB Last administered on 02/20/19at 06:21; Admin Dose 100 MLS/HR; Start 02/18/19 at 14:00 Calcium Acetate (Phoslo) 667 mg WITH LUNCH PO Last administered on 02/20/19at 11:24; Admin Dose 667 MG; Start 02/19/19 at 12:00 Diagnostic Test (Pha) (Accu-Chek) 1 ea 02 XX ; Start 02/19/19 at 02:00 Insulin Aspart (Novolog Insulin Pen) NOVOLOG *MILD* ALGORITHM WITH MEALS BEDTIME SC Last administered on 02/20/19at 11:28; Admin Dose 1 UNIT; Start 02/19/19 at 08:00 Miscellaneous Information 1 ea NOTE XX ; Start 02/18/19 at 22:30 Glucose (Glutose) 15 gm Q15M PRN PO DECREASED GLUCOSE; Start 02/18/19 at 22:30 Glucose (Glutose) 22.5 gm Q15M PRN PO DECREASED GLUCOSE; Start 02/18/19 at 22:30 Dextrose (D50w Syringe) 25 ml Q15M PRN IV DECREASED GLUCOSE; Start 02/18/19 at 22:30 Dextrose (D50w Syringe) 50 ml Q15M PRN IV DECREASED GLUCOSE; Start 02/18/19 at 22:30 Glucagon (Glucagen) 1 mg Q15M PRN IM DECREASED GLUCOSE; Start 02/18/19 at 22:30 Glucose (Glutose) 15 gm Q15M PRN BUCCAL DECREASED GLUCOSE; Start 02/18/19 at 22:30 Heparin Sodium (Porcine) (Heparin (1000 Units/ml)) 4,100 unit AFTER DIALYSIS CATHETER Last administered on 02/19/19at 12:53; Admin Dose 4,100 UNIT; Start 02/19/19 at 09:00 Famotidine (Pepcid) 20 mg HS PO Last administered on 02/19/19at 21:16; Admin Dose 20 MG; Start 02/19/19 at 21:00 Epoetin Alexis-epbx (Retacrit (Esrd)) 4,000 unit MoWeFr@1700 SC ; Start 02/22/19 at 17:00 Vancomycin HCl 250 ml @ 125 mls/hr ONCE IVPB ; Start 02/20/19 at 14:00; Stop 02/20/19 at 15:59 VTE Prophylaxis Risk score (from Nsg)>0 risk: 1 SCD applied (from Nsg): No SCD contraindication: other Lines/Catheters IV Catheter Type: Hearn in Place: No Assessment/Plan Hospital Course Subjective Patient feels better than yesterday however still feels weak Objective Physical exam General: Patient is laying in bed and answers questions appropriately Mentation: Patient is alert and oriented 4, Head: Normocephalic atraumatic Eyes: EOMI, pupils reactive to light Neck: Supple, nontender, midline Respiratory: Clear to auscultation bilaterally Cardiovascular: regular rate, no obvious murmurs Gastrointestinal: non-tender to palpation, bowel sounds heard. Neurological: Moves all extremities spontaneously Skin: No new skin lesions Assessment and plan Sepsis -Secondary to bacteremia -Cultures -IV fluid as needed -IV antibiotic Staph aureus bacteremia -Continue anabiotic's -Infectious disease consulted -We will need to remove permacath as this is the likely source of infection. We will remove today after dialysis. We will give a break over the weekend to ensure eradication of staff and then reinsert Dung on Friday to dialyze temporary before new permacath placed sometime midweek next week. Diarrhea and nausea, resolving -Possibly a component of gastroenteritis -CT negative for acute issues, however will continue antibiotics due to above sepsis End-stage renal disease on hemodialysis -Nephrology consulted Fevers, chills, body aches -Likely secondary to above sepsis -Continue IV antibiotic -Resolving Immature left arm fistula -Vascular surgeon has been consulted, patient received this 3 months ago but was told that it was not ready yet. -US showing stenosis, will consult patient's vascular group. Disposition -permacath removed. cont iv abx WILL MADIRD Feb 20, 2019 12:50
[2019-02-20] MEDS ORDERED: VANCOMYCIN 1 GM 250 ML IVPB SCH (14:00)
--- NOTE | 2019-02-20 14:37 | RADRPT ---
Echocardiogram Report Patient Name: JAYSHREE HYMANPatient ID: [id number] : 1965 (53y 2m)Study Date: 02/19/2019 2:56:12 PM Gender: MAccession #: [id number] Tech: Chris Hansen [facility] Location: 626- Ref.Physician: WILL MADRID Height(Cm): BSA: Weight(Kg): Quality: AdequateOrder Physician: WILL MADRID Account #: Procedures: Echocardiographic Report: Transthoracic echocardiogram with complete 2D, M-Mode, and doppler examination. Indications: Vegetations. Measurements: 2D/M Mode Doppler Measurement Value Normal Range Measurement Value Normal Range LVIDd 2D 4.9 [ 4.2 - 5.8 ] cm AV Peak [place] 1.7 [ 100.0 - 170.0 ] cm/sec LVIDs 2D 3.1 [ 2.5 - 4.0 ] cm AV Peak PG 11.0 [ 2.0 - 9.0 ] mmHg LVPWd 2D 1.0 [ 0.6 - 1.0 ] cm LVOT Peak [place] 1.2 [ 70.0 - 110.0 ] cm/sec IVSd 2D 1.0 [ 0.6 - 1.0 ] cm LVOT Peak PG 6.0 [ 2.0 - 6.0 ] mmHg AoR Diam 2D 2.9 [ 2.6 - 3.4 ] cm MV E Peak [place] 1.1 [ 60.0 - 130.0 ] cm/sec EDV 2D 116.0 [ 62.0 - 150.0 ] ml MV A Peak [place] 1.2 [ 100.0 - 120.0 ] cm/sec ESV 2D 37.3 [ 21.0 - 61.0 ] ml MV E/A 0.9 [ 0.8 - 1.5 ] ratio EF 2D 67.8 [ 52.0 - 72.0 ] percent MV Decel Time 229 [ 104 - 258 ] msec LA Dimen 2D 3.4 [ 3.0 - 4.0 ] cm Lat E` [place] 0.1 [ 10.0 - 15.0 ] cm/sec Lateral E/E` 7.1 [ 1.0 - 2.0 ] ratio Med E` [place] 0.1 cm/sec MV E/A 0.9 [ 0.8 - 1.5 ] ratio TR Peak [place] 2.7 [ 100.0 - 280.0 ] cm/sec TR Peak PG 28.0 mmHg RVSP 31.0 [ 10.0 - 36.0 ] mmHg RA Pressure 3.0 mmHg Findings: Left Ventricle: Normal left ventricular systolic function. Normal left ventricular cavity size. Normal left ventricular wall thickness. Ejection fraction is visually estimated at 65 %. Tissue Doppler/Mitral Doppler indices are consistent with impaired relaxation (Stage I diastolic dysfunction). Right Ventricle: Normal right ventricular size. Normal right ventricular systolic function. Left Atrium: The left atrium is normal in size. Right Atrium: The right atrium is normal in size. Mitral Valve: Mild mitral leaflet calcification. Mild mitral annular calcification. Trace mitral regurgitation. No evidence of endocarditis. Aortic Valve: No significant aortic stenosis or insufficiency. Aortic cusps appear mildly calcified. No evidence of endocarditis. Tricuspid Valve: Normal appearance of the tricuspid valve. The estimated Peak RVSP is 31 mmHg. There is mild tricuspid regurgitation. No evidence of endocarditis. Pericardium: Normal pericardium with no significant pericardial effusion. Aorta: Normal aortic root. IVC: Normal size and normal respiratory collapse consistent with normal right atrial pressure. Conclusions: Normal left ventricular systolic function. Normal left ventricular cavity size. Normal left ventricular wall thickness. Ejection fraction is visually estimated at 65 %. Tissue Doppler/Mitral Doppler indices are consistent with impaired relaxation (Stage I diastolic dysfunction). Mild mitral leaflet calcification. Mild mitral annular calcification. Trace mitral regurgitation. No evidence of endocarditis. Normal appearance of the tricuspid valve. The estimated Peak RVSP is 31 mmHg. There is mild tricuspid regurgitation. No evidence of endocarditis. Electronically Signed By: Alpesh Pierre 2019-02-20 14:36:32 PDT
--- NOTE | 2019-02-20 16:13 | CONS ---
Assessment/Plan Assessment/Plan Hospital Course (Demo Recall) ID PROGRESS NOTE CURRENT ABX: DAY # 2.5 =>Vanco IV + Zosyn Cefepime 24H INTERVAL SUMMARY * A/A/O -> Turkish speaking, RN in room speaks Turkish and serves as hand baseball sewer * Patient had PermCath removed -- also has AVF in place, apparently not ripe * He feels well, denies fevers/chills -- watching TV w/family in room, no complaints, no questions DIAGNOSTIC IMAGING * 02/17/19 * 02/18/19 CXR: No evidence of acute cardiopulmonary process, allowing for decreased lung volumes and bibasilar atelectasis. * 02/18/19 CT: 1. Mild atrophic kidneys with mild renal cortical scarring.2. Bilateral multiple small 2-4 mm non-obstructing calcified calculi. No obstructive uropathy bilaterally.3. No gastrointestinal disease.4. Tiny fat containing umbilical hernia without herniated hour strangulation. MICRO * 02/19/19 PermCath removal site wound cx: WOUND CULTURE Preliminary No growth after 1 day * 02/18/19 BCX (+) 2/2 bottles: Organism 1 STAPHYLOCOCCUS AUREUS S AUREUS M.I.C. RX --------- --- CEFAZOLIN S CIPROFLOXACIN <=0.5 S CLINDAMYCIN <=0.25 S DOXYCYCLINE S ERYTHROMYCIN <=0.25 S LEVOFLOXACIN <=0.12 S OXACILLIN <=0.25 S PENICILLIN-G R RIFAMPIN <=0.5 S VANCOMYCIN <=0.5 S TRIMETHOPRIM/SULFAMETHOXAZOLE <=10 S PHYSICAL EXAMINATION: GENERAL: VSS, NAD HEENT: AT, NC, NECK: Supple, CHEST: Rise symmetrical HEART: Pulse RRR ABDOMEN: Benign EXTREMITIES: Warm, dry == left lower ext dsg c/d/i SKIN: No rash, no diaphoresis ID ASSESSMENT 53 yo M admit with: Sepsis associated w/fevers/chills/N/V prior to admission * -Secondary to STAPH bacteremia ==> PermCath line infx suspected and now removed Staph aureus bacteremia-> Line sepsis -- pending final ID C&S DM w/polyneuropathies: Renal, suspect Gastroparesis Nausea w/emesis -- likely related to sepsis, suspect gastroparesis => CT (-)for acute gastroenteritis/gastric ESRD-> HD * LINE HOLIDAY --> PLAN reinsert Dung on Friday to dialyze temporary before new PermCath placed sometime midweek next week. * Immature left arm fistula Tiny fat containing umbilical hernia without herniated hour strangulation. Bilateral multiple small 2-4 mm non-obstructing calcified calculi. No obstructive uropathy bilaterally Hx of remote hepatic abscess-> s/p 01/23/2015 CT-guided drainage of liver abscess ABX ALLERGIES: KNDA INVASIVES: PIV CURRENT ABX: DAY # 2.5 =>Vanco IV + Zosyn Cefepime ID RECOMMENDATIONS/PLAN: 1. Continue Vanco IV post HD for a total of 14 days 2. Change Zosyn to Ceftriaxone daily 2. LINE HOLIDAY --> PLAN reinsert Dung on Friday to dialyze temporary before new PermCath placed sometime midweek next week. * Continue dual ABX coverage until new PermCATH placed next week then anticipate DC on Vanco IV to be given at HD center to complete 14 days until 03/14/19 . Consultation Date/Type/Reason Admit Date/Time Feb 18, 2019 at 12:24 Initial Consult Date Date/Time of Note DATE: 02/20/19 TIME: 16:07 Exam/Review of Systems Exam Vitals Vital Signs Date Temp Pulse Resp B/P (MAP) Pulse Ox O2 O2 Flow FiO2 Time Delivery Rate 02/20/19 98.0 77 20 157/80 97 15:27 (105) 02/20/19 2.0 27 01:58 02/19/19 Nasal 17:00 Cannula Intake and Output 02/19/19 02/19/19 02/20/19 1515:00 23:00 07:00 IntakeIntake Total 50 ml 560 ml 1100 ml OutputOutput Total 1500 ml 350 ml BalanceBalance -1450 ml 560 ml 750 ml Results Result Diagram: 02/20/19 0457 02/20/19 0457 Results 24hrs Laboratory Tests Test 02/19/19 17:14 02/19/19 19:00 02/19/19 21:16 02/20/19 04:33 Bedside Glucose 253 H 279 H 210 170 Test 02/20/19 04:57 02/20/19 07:29 02/20/19 11:23 White Blood Count 4.6 #L Red Blood Count 2.95 L Hemoglobin 8.9 L Hematocrit 25.7 L Mean Corpuscular Volume 87.1 Mean Corpuscular 30.2 Hemoglobin Mean Corpuscular 34.6 Hemoglobin Concent Red Cell Distribution 13.4 Width Platelet Count 101 L Mean Platelet Volume 11.4 H Immature Granulocytes % 0.400 Neutrophils % 74.2 Lymphocytes % 14.8 L Monocytes % 8.7 Eosinophils % 1.5 Basophils % 0.4 Nucleated Red Blood 0.0 Cells % Immature Granulocytes # 0.020 Neutrophils # 3.4 Lymphocytes # 0.7 L Monocytes # 0.4 Eosinophils # 0.1 Basophils # 0.0 Nucleated Red Blood 0.0 Cells # Sodium Level 139 Potassium Level 4.0 Chloride Level 104 Carbon Dioxide Level 26 Anion Gap 9 Blood Urea Nitrogen 32 H Creatinine 5.75 H Est Glomerular Filtrat 10 L Rate mL/min Glucose Level 158 Uric Acid 3.2 Calcium Level 8.8 Phosphorus Level 3.2 Magnesium Level 2.4 # Vitamin D 1,25-Dihydroxy 32.4 Parathyroid Hormone 54.3 Random Vancomycin Level 9.8 Bedside Glucose 131 155 Medications Medication Current Medications IV Flush (NS 3 ml) 3 ml PER PROTOCOL IV ; Start 02/18/19 at 13:00 Ondansetron HCl (Zofran Inj) 4 mg Q6H PRN IV NAUSEA/VOMITING Last administered on 02/18/19at 22:50; Admin Dose 4 MG; Start 02/18/19 at 13:00 Acetaminophen (Tylenol Tab) 650 mg Q6H PRN PO .PAIN 1-3 OR TEMP Last administered on 02/20/19at 00:16; Admin Dose 650 MG; Start 02/18/19 at 13:00 Acetaminophen/ Hydrocodone Bitart ([place] (5/325)) 1 tab Q6H PRN PO .PAIN 4-6; Start 02/18/19 at 13:00 Morphine Sulfate (morphine) 2 mg Q4H PRN IV .PAIN 7-10 Last administered on 02/18/19at 22:57; Admin Dose 2 MG; Start 02/18/19 at 13:00 Vancomycin HCl (Vanco Iv Per Pharmacy) VANCOMYCIN PER PHARMACY PER PROTOCOL XX ; Start 02/18/19 at 13:00 Piperacillin Sod/ Tazobactam Sod 50 ml @ 100 mls/hr Q8 IVPB Last administered on 02/20/19at 13:52; Admin Dose 100 MLS/HR; Start 02/18/19 at 14:00 Calcium Acetate (Phoslo) 667 mg WITH LUNCH PO Last administered on 02/20/19at 11:24; Admin Dose 667 MG; Start 02/19/19 at 12:00 Diagnostic Test (Pha) (Accu-Chek) 1 ea 02 XX ; Start 02/19/19 at 02:00 Insulin Aspart (Novolog Insulin Pen) NOVOLOG *MILD* ALGORITHM WITH MEALS BEDTIME SC Last administered on 02/20/19at 11:28; Admin Dose 1 UNIT; Start 02/19/19 at 08:00 Miscellaneous Information 1 ea NOTE XX ; Start 02/18/19 at 22:30 Glucose (Glutose) 15 gm Q15M PRN PO DECREASED GLUCOSE; Start 02/18/19 at 22:30 Glucose (Glutose) 22.5 gm Q15M PRN PO DECREASED GLUCOSE; Start 02/18/19 at 22:30 Dextrose (D50w Syringe) 25 ml Q15M PRN IV DECREASED GLUCOSE; Start 02/18/19 at 22:30 Dextrose (D50w Syringe) 50 ml Q15M PRN IV DECREASED GLUCOSE; Start 02/18/19 at 22:30 Glucagon (Glucagen) 1 mg Q15M PRN IM DECREASED GLUCOSE; Start 02/18/19 at 22:30 Glucose (Glutose) 15 gm Q15M PRN BUCCAL DECREASED GLUCOSE; Start 02/18/19 at 22:30 Heparin Sodium (Porcine) (Heparin (1000 Units/ml)) 4,100 unit AFTER DIALYSIS CATHETER Last administered on 02/19/19at 12:53; Admin Dose 4,100 UNIT; Start 02/19/19 at 09:00 Famotidine (Pepcid) 20 mg HS PO Last administered on 02/19/19at 21:16; Admin Dose 20 MG; Start 02/19/19 at 21:00 Epoetin Alexis-epbx (Retacrit (Esrd)) 4,000 unit MoWeFr@1700 SC ; Start 02/22/19 at 17:00 RA MARTIENZ NP Feb 20, 2019 16:13
[2019-02-20] MEDS: CEFTRIAXONE 1 GM/50 ML (PMX) 50 ML IVPB SCH (16:55)
[2019-02-20] MEDS: FAMOTIDINE 20 MG TAB PO SCH (21:35)
[2019-02-21] VITALS: BP 138/77; PULSE 78; RESP 18
[2019-02-21] MEDS: ACCU-CHEK XX SCH (02:00)
[2019-02-21 04:00] VITALS: BP 145/78; PULSE 66; RESP 18
[2019-02-21 07:49] VITALS: BP 149/82; PULSE 73; RESP 20
[2019-02-21] MEDS: INSULIN ASPART [NOVOLOG] 3 ML PEN SC SCH ×4 (07:53→21:00)
[2019-02-21 11:12] VITALS: BP 165/84; PULSE 65; RESP 20
[2019-02-21] MEDS: CALCIUM ACETATE 667 MG CAP PO SCH (11:57)
--- NOTE | 2019-02-21 12:05 | PN ---
Date/Time of Note Date/Time of Note DATE: 02/21/19 TIME: 12:03 Objective Vitals Vital Signs Date Temp Pulse Resp B/P (MAP) Pulse Ox O2 O2 Flow FiO2 Time Delivery Rate 02/21/19 98.0 65 20 165/84 98 11:12 (111) 02/21/19 Room Air 04:00 02/20/19 21 19:12 02/20/19 2.0 01:58 Intake and Output 02/20/19 02/20/19 02/21/19 1515:00 23:00 07:00 IntakeIntake Total 300 ml 250 ml BalanceBalance 300 ml 250 ml Results Result Diagram: 02/21/19 0503 02/21/19 0503 Medications Medications Current Medications IV Flush (NS 3 ml) 3 ml PER PROTOCOL IV ; Start 02/18/19 at 13:00 Ondansetron HCl (Zofran Inj) 4 mg Q6H PRN IV NAUSEA/VOMITING Last administered on 02/18/19at 22:50; Admin Dose 4 MG; Start 02/18/19 at 13:00 Acetaminophen (Tylenol Tab) 650 mg Q6H PRN PO .PAIN 1-3 OR TEMP Last administered on 02/20/19at 23:56; Admin Dose 650 MG; Start 02/18/19 at 13:00 Acetaminophen/ Hydrocodone Bitart ([place] (5/325)) 1 tab Q6H PRN PO .PAIN 4-6; Start 02/18/19 at 13:00 Morphine Sulfate (morphine) 2 mg Q4H PRN IV .PAIN 7-10 Last administered on 02/18/19at 22:57; Admin Dose 2 MG; Start 02/18/19 at 13:00 Vancomycin HCl (Vanco Iv Per Pharmacy) VANCOMYCIN PER PHARMACY PER PROTOCOL XX ; Start 02/18/19 at 13:00 Calcium Acetate (Phoslo) 667 mg WITH LUNCH PO Last administered on 02/20/19at 11:24; Admin Dose 667 MG; Start 02/19/19 at 12:00 Diagnostic Test (Pha) (Accu-Chek) XX ; Start 02/19/19 at 02:00 Insulin Aspart (Novolog Insulin Pen) NOVOLOG *MILD* ALGORITHM WITH MEALS BEDTIME SC Last administered on 02/20/19at 22:29; Admin Dose 2 UNIT; Start 02/19/19 at 08:00 Miscellaneous Information 1 ea NOTE XX ; Start 02/18/19 at 22:30 Glucose (Glutose) 15 gm Q15M PRN PO DECREASED GLUCOSE; Start 02/18/19 at 22:30 Glucose (Glutose) 22.5 gm Q15M PRN PO DECREASED GLUCOSE; Start 02/18/19 at 22:30 Dextrose (D50w Syringe) 25 ml Q15M PRN IV DECREASED GLUCOSE; Start 02/18/19 at 22:30 Dextrose (D50w Syringe) 50 ml Q15M PRN IV DECREASED GLUCOSE; Start 02/18/19 at 22:30 Glucagon (Glucagen) 1 mg Q15M PRN IM DECREASED GLUCOSE; Start 02/18/19 at 22:30 Glucose (Glutose) 15 gm Q15M PRN BUCCAL DECREASED GLUCOSE; Start 02/18/19 at 22:30 Heparin Sodium (Porcine) (Heparin (1000 Units/ml)) 4,100 unit AFTER DIALYSIS CATHETER Last administered on 02/19/19at 12:53; Admin Dose 4,100 UNIT; Start 02/19/19 at 09:00 Famotidine (Pepcid) 20 mg HS PO Last administered on 02/20/19at 21:35; Admin Dose 20 MG; Start 02/19/19 at 21:00 Epoetin Alexis-epbx (Retacrit (Esrd)) 4,000 unit MoWeFr@1700 SC ; Start 02/22/19 at 17:00 Ceftriaxone Sodium 50 ml @ 100 mls/hr Q24H IVPB Last administered on 02/20/19at 16:55; Admin Dose 100 MLS/HR; Start 02/20/19 at 16:30 Insulin Glargine (Lantus) 10 units DAILY@2000 SC ; Start 02/21/19 at 20:00 VTE Prophylaxis Risk score (from Nsg)>0 risk: 1 SCD applied (from Nsg): No SCD contraindication: other Lines/Catheters IV Catheter Type: Hearn in Place: No Assessment/Plan Hospital Course Subjective Patient feels better than yesterday Objective Physical exam General: Patient is laying in bed and answers questions appropriately Mentation: Patient is alert and oriented 4, Head: Normocephalic atraumatic Eyes: EOMI, pupils reactive to light Neck: Supple, nontender, midline Respiratory: Clear to auscultation bilaterally Cardiovascular: regular rate, no obvious murmurs Gastrointestinal: non-tender to palpation, bowel sounds heard. Neurological: Moves all extremities spontaneously Skin: No new skin lesions Assessment and plan Sepsis -Secondary to bacteremia -Cultures -IV fluid as needed -IV antibiotic Staph aureus bacteremia -Continue antibiotics -Infectious disease consulted -Permacath removed, will attempt to use AV fistula will more time per vascular recommendations from Dr. Fierro, if AV fistula could not be used, patient will need a Dung cath and then eventual permacath placement when bacteremia is resolved Diarrhea and nausea, resolved -Possibly a component of gastroenteritis -CT negative for acute issues, however will continue antibiotics due to above End-stage renal disease on hemodialysis -Nephrology consulted Fevers, chills, body aches, resolving -Likely secondary to above sepsis -Continue IV antibiotic -Resolving Immature left arm fistula -We will attempt one more time per vascular surgery recommendations, -Per nursing staff, it appears vascular surgeon may have said that the arterial study may not be fully accurate -If not working will need to have Dung and permacath Disposition -Continue IV antibiotics, tomorrow we will need to decide between using fistula versus using new Dung. WILL MADRID Feb 21, 2019 12:05
--- NOTE | 2019-02-21 14:04 | CONS ---
[facility] HCIS Consult Follow-up Patient Name: Jesus Ye Unit Number: [id number] Date of : 1965 Patient Status: Admitted Inpatient Attending Doctor: Harjinder Swartz Edit: DANA CASAS MD on 02/21/19 @ 14:07 RUDY TRY FISTULA TMW OTHER DORY VS PERMACATH Assessment/Plan Assessment/Plan Hospital Course (Demo Recall) 1. End-stage renal disease on hemodialysis. 2. Sepsis with leukocytosis and lactic acidosis 3. Negative urinary tract infection, UA neg. Urine culture negative. 4. History of hypertension, currently normotensive. 5. Diabetes mellitus controlled. 6. Fevers, tachycardia, likely secondary to systemic inflammatory response syndrome/sepsis. CT of the abdomen and pelvis shows questionable gastroent eritis; however, we need to rule out PermCath infection. 7. Normocytic normochromic anemia 2/2 chronic kidney disaease 8. Overweight Assessment/Plan (Daily) -c/w vancomycin and Zosyn. -start epogen afte HD - for arterial Doppler, fistula patency showed: Elevated velocities in the distal graft and at the venous anastomosis of the graft, suggesting stenosis. -c/w hemodialysis - blood cultures pos. for Staph. - vascular consultation: removed Permcath. -c/w Phoslo -parathyroid studies: calcium is normal, vit D is normal, PTH is normal Consultation Date/Type/Reason Admit Date/Time Feb 18, 2019 at 12:24 Initial Consult Date 02/18/2019 Type of Consult nephrology Date/Time of Note DATE: 02/21/19 TIME: 14:03 Exam/Review of Systems Exam Vitals Vital Signs Date Temp Pulse Resp B/P (MAP) Pulse Ox O2 O2 Flow FiO2 Time Delivery Rate 02/21/19 98.0 65 20 165/84 98 11:12 (111) 02/21/19 Room Air 04:00 02/20/19 21 19:12 02/20/19 2.0 01:58 Intake and Output 02/20/19 02/20/19 02/21/19 1515:00 23:00 07:00 IntakeIntake Total 300 ml 250 ml BalanceBalance 300 ml 250 ml Exam left arm immature AV fistula Constitutional: alert, oriented Respiratory: clear to auscultation Cardiovascular: regular rate and rhythm Gastrointestinal: soft Musculoskeletal: nl extremities to inspection Results Result Diagram: 02/21/19 0503 02/21/19 0503 Results 24hrs Laboratory Tests Test 02/20/19 17:07 02/20/19 21:27 02/20/19 22:19 02/21/19 02:31 Bedside Glucose 218 228 H 234 H 186 Test 02/21/19 05:03 02/21/19 07:28 02/21/19 11:55 White Blood Count 4.9 Red Blood Count 3.09 L Hemoglobin 9.3 L Hematocrit 26.7 L Mean Corpuscular Volume 86.4 Mean Corpuscular 30.1 Hemoglobin Mean Corpuscular 34.8 Hemoglobin Concent Red Cell Distribution 13.6 Width Platelet Count 117 L Mean Platelet Volume 11.8 H Immature Granulocytes % 0.600 H Neutrophils % 62.3 Lymphocytes % 21.2 Monocytes % 12.0 H Eosinophils % 3.5 Basophils % 0.4 Nucleated Red Blood 0.0 Cells % Immature Granulocytes # 0.030 Neutrophils # 3.1 Lymphocytes # 1.0 Monocytes # 0.6 Eosinophils # 0.2 Basophils # 0.0 Nucleated Red Blood 0.0 Cells # Sodium Level 140 Potassium Level 3.8 Chloride Level 105 Carbon Dioxide Level 25 Anion Gap 10 Blood Urea Nitrogen 43 #H Creatinine 6.94 H Est Glomerular Filtrat 8 L Rate mL/min Glucose Level 152 Calcium Level 8.7 Phosphorus Level 3.0 Magnesium Level 2.2 Bedside Glucose 140 156 Medications Medication Current Medications IV Flush (NS 3 ml) 3 ml PER PROTOCOL IV ; Start 02/18/19 at 13:00 Ondansetron HCl (Zofran Inj) 4 mg Q6H PRN IV NAUSEA/VOMITING Last administered on 02/18/19at 22:50; Admin Dose 4 MG; Start 02/18/19 at 13:00 Acetaminophen (Tylenol Tab) 650 mg Q6H PRN PO .PAIN 1-3 OR TEMP Last administered on 02/20/19at 23:56; Admin Dose 650 MG; Start 02/18/19 at 13:00 Acetaminophen/ Hydrocodone Bitart ([place] (5/325)) 1 tab Q6H PRN PO .PAIN 4-6; Start 02/18/19 at 13:00 Morphine Sulfate (morphine) 2 mg Q4H PRN IV .PAIN 7-10 Last administered on at 22:57; Admin Dose 2 MG; Start 02/18/19 at 13:00 Vancomycin HCl (Vanco Iv Per Pharmacy) VANCOMYCIN PER PHARMACY PER PROTOCOL XX ; Start 02/18/19 at 13:00 Calcium Acetate (Phoslo) 667 mg WITH LUNCH PO Last administered on 02/21/19 11:57; Admin Dose 667 MG; Start 02/19/19 at 12:00 Diagnostic Test (Pha) (Accu-Chek) 1 ea 02 XX ; Start 02/19/19 at 02:00 Insulin Aspart (Novolog Insulin Pen) NOVOLOG *MILD* ALGORITHM WITH MEALS BEDTIME SC Last administered on 02/21/19at 12:03; Admin Dose 1 UNIT; Start 02/19/19 at 08:00 Miscellaneous Information 1 ea NOTE XX ; Start 02/18/19 at 22:30 Glucose (Glutose) 15 gm Q15M PRN PO DECREASED GLUCOSE; Start 02/18/19 at 22:30 Glucose (Glutose) 22.5 gm Q15M PRN PO DECREASED GLUCOSE; Start 02/18/19 at 22:30 Dextrose (D50w Syringe) 25 ml Q15M PRN IV DECREASED GLUCOSE; Start 02/18/19 at 22:30 Dextrose (D50w Syringe) 50 ml Q15M PRN IV DECREASED GLUCOSE; Start 02/18/19 at 22:30 Glucagon (Glucagen) 1 mg Q15M PRN IM DECREASED GLUCOSE; Start 02/18/19 at 22:30 Glucose (Glutose) 15 gm Q15M PRN BUCCAL DECREASED GLUCOSE; Start 02/18/19 at 22:30 Heparin Sodium (Porcine) (Heparin (1000 Units/ml)) 4,100 unit AFTER DIALYSIS CATHETER Last administered on 02/19/19at 12:53; Admin Dose 4,100 UNIT; Start 02/19/19 at 09:00 Famotidine (Pepcid) 20 mg HS PO Last administered on 7/6/19at 21:35; Admin Dose 20 MG; Start 02/19/19 at 21:00 Epoetin Alexis-epbx (Retacrit (Esrd)) 4,000 unit MoWeFr@1700 SC ; Start 02/22/19 at 17:00 Ceftriaxone Sodium 50 ml @ 100 mls/hr Q24H IVPB Last administered on 02/20/19at 16:55; Admin Dose 100 MLS/HR; Start 02/20/19 at 16:30 Insulin Glargine (Lantus) 10 units DAILY@2000 SC ; Start 02/21/19 at 20:00 PENNY FISCHER Feb 21, 2019 14:04
--- NOTE | 2019-02-21 15:03 | CONS ---
Assessment/Plan Assessment/Plan Hospital Course (Demo Recall) ID PROGRESS NOTE CURRENT ABX: DAY # 3.5 =>Vanco IV + Zosyn Cefepime 24H INTERVAL SUMMARY * He feels well, denies fevers/chills -- watching TV w/family in room, no complaints, no questions DIAGNOSTIC IMAGING * 02/18/19 CXR: No evidence of acute cardiopulmonary process, allowing for decreased lung volumes and bibasilar atelectasis. * 02/18/19 CT: 1. Mild atrophic kidneys with mild renal cortical scarring.2. Bilateral multiple small 2-4 mm non-obstructing calcified calculi. No obstructive uropathy bilaterally.3. No gastrointestinal disease.4. Tiny fat containing umbilical hernia without herniated hour strangulation. MICRO * 02/19/19 PermCath removal site wound cx: WOUND CULTURE Preliminary No growth after 2 day * 02/18/19 BCX (+) 2/ bottles: Organism 1 STAPHYLOCOCCUS AUREUS S AUREUS M.I.C. RX --------- --- CEFAZOLIN S CIPROFLOXACIN <=0.5 S CLINDAMYCIN <=0.25 S DOXYCYCLINE S ERYTHROMYCIN <=0.25 S LEVOFLOXACIN <=0.12 S OXACILLIN <=0.25 S PENICILLIN-G R RIFAMPIN <=0.5 S VANCOMYCIN <=0.5 S TRIMETHOPRIM/SULFAMETHOXAZOLE <=10 S PHYSICAL EXAMINATION: GENERAL: VSS, NAD HEENT: AT, NC, NECK: Supple, CHEST: Rise symmetrical HEART: Pulse RRR ABDOMEN: Benign EXTREMITIES: Warm, dry == left lower ext dsg c/d/i SKIN: No rash, no diaphoresis ID ASSESSMENT 53 yo M admit with: Sepsis associated w/fevers/chills/N/V prior to admission * -Secondary to STAPH bacteremia ==> PermCath line infx suspected and now removed Staph aureus bacteremia-> Line sepsis -- pending final ID C&S DM w/polyneuropathies: Renal, suspect Gastroparesis Nausea w/emesis -- likely related to sepsis, suspect gastroparesis => CT (-)for acute gastroenteritis/gastric ESRD-> HD * LINE HOLIDAY --> PLAN reinsert Dung on Friday to dialyze temporary before new PermCath placed sometime midweek next week. * Immature left arm fistula Tiny fat containing umbilical hernia without herniated hour strangulation. Bilateral multiple small 2-4 mm non-obstructing calcified calculi. No obstructive uropathy bilaterally Hx of remote hepatic abscess-> s/p 01/23/2015 CT-guided drainage of liver abscess ABX ALLERGIES: KNDA INVASIVES: PIV CURRENT ABX: DAY # 3.5 =>Vanco IV + Zosyn Cefepime ID RECOMMENDATIONS/PLAN: 1. Continue Vanco IV post HD for a total of 14 days 2. Ceftriaxone daily prior to placement of new PermCath 2. LINE HOLIDAY --> PLAN reinsert Dung on Friday to dialyze temporary before new PermCath placed sometime midweek next week. * Continue dual ABX coverage until new PermCATH placed next week then anticipate DC on Vanco IV to be given at HD center to complete 14 days until 03/14/19 last day . Consultation Date/Type/Reason Admit Date/Time Feb 18, 2019 at 12:24 Initial Consult Date Date/Time of Note DATE: 02/21/19 TIME: 14:59 Exam/Review of Systems Exam Vitals Vital Signs Date Temp Pulse Resp B/P (MAP) Pulse Ox O2 O2 Flow FiO2 Time Delivery Rate 02/21/19 98.0 65 20 165/84 98 11:12 (111) 02/21/19 Room Air 04:00 02/20/19 21 19:12 02/20/19 2.0 01:58 Intake and Output 02/20/19 02/20/19 02/21/19 1515:00 23:00 07:00 IntakeIntake Total 300 ml 250 ml BalanceBalance 300 ml 250 ml Results Result Diagram: 02/21/19 0503 02/21/19 0503 Results 24hrs Laboratory Tests Test 02/20/19 17:07 02/20/19 21:27 02/20/19 22:19 02/21/19 02:31 Bedside Glucose 218 228 H 234 H 186 Test 02/21/19 05:03 02/21/19 07:28 02/21/19 11:55 White Blood Count 4.9 Red Blood Count 3.09 L Hemoglobin 9.3 L Hematocrit 26.7 L Mean Corpuscular Volume 86.4 Mean Corpuscular 30.1 Hemoglobin Mean Corpuscular 34.8 Hemoglobin Concent Red Cell Distribution 13.6 Width Platelet Count 117 L Mean Platelet Volume 11.8 H Immature Granulocytes % 0.600 H Neutrophils % 62.3 Lymphocytes % 21.2 Monocytes % 12.0 H Eosinophils % 3.5 Basophils % 0.4 Nucleated Red Blood 0.0 Cells % Immature Granulocytes # 0.030 Neutrophils # 3.1 Lymphocytes # 1.0 Monocytes # 0.6 Eosinophils # 0.2 Basophils # 0.0 Nucleated Red Blood 0.0 Cells # Sodium Level 140 Potassium Level 3.8 Chloride Level 105 Carbon Dioxide Level 25 Anion Gap 10 Blood Urea Nitrogen 43 #H Creatinine 6.94 H Est Glomerular Filtrat 8 L Rate mL/min Glucose Level 152 Calcium Level 8.7 Phosphorus Level 3.0 Magnesium Level 2.2 Bedside Glucose 140 156 Medications Medication Current Medications IV Flush (NS 3 ml) 3 ml PER PROTOCOL IV ; Start 02/18/19 at 13:00 Ondansetron HCl (Zofran Inj) 4 mg Q6H PRN IV NAUSEA/VOMITING Last administered on 02/18/19at 22:50; Admin Dose 4 MG; Start 02/18/19 at 13:00 Acetaminophen (Tylenol Tab) 650 mg Q6H PRN PO .PAIN 1-3 OR TEMP Last administered on 02/20/19at 23:56; Admin Dose 650 MG; Start 02/18/19 at 13:00 Acetaminophen/ Hydrocodone Bitart ([place] (5/325)) 1 tab Q6H PRN PO .PAIN 4-6; Start 02/18/19 at 13:00 Morphine Sulfate (morphine) 2 mg Q4H PRN IV .PAIN 7-10 Last administered on 02/18/19at 22:57; Admin Dose 2 MG; Start 02/18/19 at 13:00 Vancomycin HCl (Vanco Iv Per Pharmacy) VANCOMYCIN PER PHARMACY PER PROTOCOL XX ; Start 02/18/19 at 13:00 Calcium Acetate (Phoslo) 667 mg WITH LUNCH PO Last administered on 02/21/19at 11:57; Admin Dose 667 MG; Start 02/19/19 at 12:00 Diagnostic Test (Pha) (Accu-Chek) 1 ea 02 XX ; Start 02/19/19 at 02:00 Insulin Aspart (Novolog Insulin Pen) NOVOLOG *MILD* ALGORITHM WITH MEALS B EDTIME SC Last administered on 02/21/19at 12:03; Admin Dose 1 UNIT; Start 02/19/19 at 08:00 Miscellaneous Information 1 ea NOTE XX ; Start 02/18/19 at 22:30 Glucose (Glutose) 15 gm Q15M PRN PO DECREASED GLUCOSE; Start 02/18/19 at 22:30 Glucose (Glutose) 22.5 gm Q15M PRN PO DECREASED GLUCOSE; Start 02/18/19 at 22:30 Dextrose (D50w Syringe) 25 ml Q15M PRN IV DECREASED GLUCOSE; Start 02/18/19 at 22:30 Dextrose (D50w Syringe) 50 ml Q15M PRN IV DECREASED GLUCOSE; Start 02/18/19 at 22:30 Glucagon (Glucagen) 1 mg Q15M PRN IM DECREASED GLUCOSE; Start 02/18/19 at 22:30 Glucose (Glutose) 15 gm Q15M PRN BUCCAL DECREASED GLUCOSE; Start 02/18/19 at 22:30 Heparin Sodium (Porcine) (Heparin (1000 Units/ml)) 4,100 unit AFTER DIALYSIS CATHETER Last administered on 02/19/19at 12:53; Admin Dose 4,100 UNIT; Start 02/19/19 at 09:00 Famotidine (Pepcid) 20 mg HS PO Last administered on 02/20/19at 21:35; Admin Dose 20 MG; Start 02/19/19 at 21:00 Epoetin Alexis-epbx (Retacrit (Esrd)) 4,000 unit MoWeFr@1700 SC ; Start 02/22/19 at 17:00 Ceftriaxone Sodium 50 ml @ 100 mls/hr Q24H IVPB Last administered on 02/20/19at 16:55; Admin Dose 100 MLS/HR; Start 02/20/19 at 16:30 Insulin Glargine (Lantus) 10 units DAILY@2000 SC ; Start 02/21/19 at 20:00 RA MARTINEZ NP Feb 21, 2019 15:03
[2019-02-21 15:20] VITALS: BP 170/94; PULSE 84; RESP 20
[2019-02-21] MEDS: CEFTRIAXONE 1 GM/50 ML (PMX) 50 ML IVPB SCH (17:11)
[2019-02-21 20:00] VITALS: BP 176/89; PULSE 72; RESP 18
[2019-02-21] MEDS: FAMOTIDINE 20 MG TAB PO SCH (21:14)
[2019-02-21] MEDS: INSULIN GLARGINE [LANTus] (100 UNITS/ML) SYG SC SCH (21:20)
[2019-02-22] VITALS (19 sets, daily range): BP systolic 117–174; BP diastolic 9–98; PULSE 65–105; RESP 16–20
[2019-02-22] MEDS: ACCU-CHEK XX SCH (02:00)
[2019-02-22] MEDS: INSULIN ASPART [NOVOLOG] 3 ML PEN SC SCH ×4 (07:56→21:00)
--- NOTE | 2019-02-22 09:51 | PN ---
Date/Time of Note Date/Time of Note DATE: 02/22/19 TIME: 09:51 Assessment/Plan VTE Prophylaxis Risk score (from [facility] [place]0 risk: 1 SCD applied (from [facility] [place] No SCD contraindicated: low risk/ambulating Pharmacological prophylaxis: NA/contraindicated Pharm contraindication: renal impairment Lines/Catheters IV Catheter Type (from [facility] Urinary Cath still in place: No Assessment/Plan Assessment/Plan 1. Sepsis secondary to staph bacteremia - source is Permacath which was removed - repeat blood cultures drawn 02/21 and awaiting results - ID on board and appreciate consultation. Continue current antibiotics per recommendations 2. ESRD on HD - Nephrology on board and appreciate recommendations. AV fistula needs more time to mature and requesting Dung placement. IR consulted for placement - Vascular surgery consultation appreciated - US SYED noted - once repeat blood cx negative will have permacath placed 3. Disposition - IR consulted for Dung placement - awaiting repeat blood culture results Result Diagram: 02/22/19 0509 02/22/19 0509 Results 24hrs Laboratory Tests Test 02/21/19 11:55 02/21/19 17:09 02/21/19 21:12 02/22/19 04:55 Bedside Glucose 156 174 179 124 Test 02/22/19 05:09 02/22/19 07:32 White Blood Count 5.5 Red Blood Count 3.19 L Hemoglobin 9.7 L Hematocrit 27.6 L Mean Corpuscular Volume 86.5 Mean Corpuscular 30.4 Hemoglobin Mean Corpuscular 35.1 Hemoglobin Concent Red Cell Distribution 13.3 Width Platelet Count 143 # Mean Platelet Volume 11.1 H Immature Granulocytes % 1.300 H Neutrophils % 61.2 Lymphocytes % 22.0 Monocytes % 11.8 H Eosinophils % 3.3 Basophils % 0.4 Nucleated Red Blood 0.0 Cells % Immature Granulocytes # 0.070 H Neutrophils # 3.4 Lymphocytes # 1.2 Monocytes # 0.7 Eosinophils # 0.2 Basophils # 0.0 Nucleated Red Blood 0.0 Cells # Sodium Level 142 Potassium Level 3.8 Chloride Level 108 Carbon Dioxide Level 22 Anion Gap 12 Blood Urea Nitrogen 53 H Creatinine 7.33 H Est Glomerular Filtrat 8 L Rate mL/min Glucose Level 138 Calcium Level 8.6 Phosphorus Level 3.5 Magnesium Level 2.2 Bedside Glucose 135 Subjective 24 Hr Interval Summary Free Text/Dictation Patient doing well and denies any acute issues. No dizziness, chest pain, or shortness of breath. No acute overnight events. Exam/Review of Systems Exam Vitals Vital Signs Date Temp Pulse Resp B/P (MAP) Pulse Ox O2 O2 Flow FiO2 Time Delivery Rate 02/22/19 98.0 77 20 174/90 98 07:39 (118) 02/22/19 Room Air 04:00 02/21/19 21 19:55 02/20/19 2.0 01:58 Intake and Output 02/21/19 02/21/19 02/22/19 1515:00 23:00 07:00 IntakeIntake Total 700 ml BalanceBalance 700 ml Exam General: Patient is laying in bed and answers questions appropriately. no acute distress Chest: dressing left chest wall clean and dry Neck: Supple, nontender, midline Respiratory: Clear to auscultation bilaterally. no wheezing or rhonchi Cardiovascular: regular rate and rhythm, no obvious murmurs Gastrointestinal: soft, non-tender to palpation, bowel sounds heard. Ext: no edema, cyanosis, or clubbing Skin: No new skin lesions Results Results 24hrs Laboratory Tests Test 02/21/19 11:55 02/21/19 17:09 02/21/19 21:12 02/22/19 04:55 Bedside Glucose 156 174 179 124 Test 02/22/19 05:09 02/22/19 07:32 White Blood Count 5.5 Red Blood Count 3.19 L Hemoglobin 9.7 L Hematocrit 27.6 L Mean Corpuscular Volume 86.5 Mean Corpuscular 30.4 Hemoglobin Mean Corpuscular 35.1 Hemoglobin Concent Red Cell Distribution 13.3 Width Platelet Count 143 # Mean Platelet Volume 11.1 H Immature Granulocytes % 1.300 H Neutrophils % 61.2 Lymphocytes % 22.0 Monocytes % 11.8 H Eosinophils % 3.3 Basophils % 0.4 Nucleated Red Blood 0.0 Cells % Immature Granulocytes # 0.070 H Neutrophils # 3.4 Lymphocytes # 1.2 Monocytes # 0.7 Eosinophils # 0.2 Basophils # 0.0 Nucleated Red Blood 0.0 Cells # Sodium Level 142 Potassium Level 3.8 Chloride Level 108 Carbon Dioxide Level 22 Anion Gap 12 Blood Urea Nitrogen 53 H Creatinine 7.33 H Est Glomerular Filtrat 8 L Rate mL/min Glucose Level 138 Calcium Level 8.6 Phosphorus Level 3.5 Magnesium Level 2.2 Bedside Glucose 135 Medications Medication Current Medications IV Flush (NS 3 ml) 3 ml PER PROTOCOL IV ; Start 02/18/19 at 13:00 Ondansetron HCl (Zofran Inj) 4 mg Q6H PRN IV NAUSEA/VOMITING Last administered on 02/18/19at 22:50; Admin Dose 4 MG; Start 02/18/19 at 13:00 Acetaminophen (Tylenol Tab) 650 mg Q6H PRN PO .PAIN 1-3 OR TEMP Last administered on 02/20/19at 23:56; Admin Dose 650 MG; Start 02/18/19 at 13:00 Acetaminophen/ Hydrocodone Bitart ([place] (5/325)) 1 tab Q6H PRN PO .PAIN 4-6; Start 02/18/19 at 13:00 Morphine Sulfate (morphine) 2 mg Q4H PRN IV .PAIN 7-10 Last administered on 02/18/19at 22:57; Admin Dose 2 MG; Start 02/18/19 at 13:00 Vancomycin HCl (Vanco Iv Per Pharmacy) VANCOMYCIN PER PHARMACY PER PROTOCOL XX ; Start 02/18/19 at 13:00 Calcium Acetate (Phoslo) 667 mg WITH LUNCH PO Last administered on 02/21/19at 11:57; Admin Dose 667 MG; Start 02/19/19 at 12:00 Diagnostic Test (Pha) (Accu-Chek) 1 ea 02 XX ; Start 02/19/19 at 02:00 Insulin Aspart (Novolog Insulin Pen) NOVOLOG *MILD* ALGORITHM WITH MEALS BEDTIME SC Last administered on 02/21/19at 17:23; Admin Dose 1 UNIT; Start 02/19/19 at 08:00 Miscellaneous Information 1 ea NOTE XX ; Start 02/18/19 at 22:30 Glucose (Glutose) 15 gm Q15M PRN PO DECREASED GLUCOSE; Start 02/18/19 at 22:30 Glucose (Glutose) 22.5 gm Q15M PRN PO DECREASED GLUCOSE; Start 02/18/19 at 22:30 Dextrose (D50w Syringe) 25 ml Q15M PRN IV DECREASED GLUCOSE; Start 02/18/19 at 22:30 Dextrose (D50w Syringe) 50 ml Q15M PRN IV DECREASED GLUCOSE; Start 02/18/19 at 22:30 Glucagon (Glucagen) 1 mg Q15M PRN IM DECREASED GLUCOSE; Start 02/18/19 at 22:30 Glucose (Glutose) 15 gm Q15M PRN BUCCAL DECREASED GLUCOSE; Start 02/18/19 at 22:30 Heparin Sodium (Porcine) (Heparin (1000 Units/ml)) 4,100 unit AFTER DIALYSIS CATHETER Last administered on 02/19/19at 12:53; Admin Dose 4,100 UNIT; Start 02/19/19 at 09:00 Famotidine (Pepcid) 20 mg HS PO Last administered on 02/21/19at 21:14; Admin Dose 20 MG; Start 02/19/19 at 21:00 Epoetin Alexis-epbx (Retacrit (Esrd)) 4,000 unit MoWeFr@1700 SC ; Start 02/22/19 at 17:00 Ceftriaxone Sodium 50 ml @ 100 mls/hr Q24H IVPB Last administered on 02/21/19at 17:11; Admin Dose 100 MLS/HR; Start 02/20/19 at 16:30 Insulin Glargine (Lantus) 10 units DAILY@2000 SC Last administered on 02/21/19at 21:20; Admin Dose 10 UNITS; Start 02/21/19 at 20:00 GUDELIA NORIEGA MD Feb 22, 2019 09:51
[2019-02-22] MEDS: CALCIUM ACETATE 667 MG CAP PO SCH (11:56)
--- NOTE | 2019-02-22 13:54 | CONS ---
Assessment/Plan Assessment/Plan Assessment/Plan (Daily) Hospital Course (Demo Recall) 1. End-stage renal disease on hemodialysis. 2. Sepsis with leukocytosis and lactic acidosis with staph aureus bacterimnia cynthia due to permacath s/p permcath removal , fevers subsided sp removal 3. Negative urinary tract infection, UA neg. Urine culture negative. 4. History of hypertension, currently normotensive. 5. Diabetes mellitus controlled. 6. Fevers, tachycardia, likely secondary to systemic inflammatory response syndrome/sepsis. CT of the abdomen and pelvis shows questionable gastroenteritis; 7. Normocytic normochromic anemia 2/2 chronic kidney disaease 8. Overweight Assessment/Plan (Daily) -c/w rocephin - will try to cannulate fistula today with both ports and see if it can be used, given clearence by vascular - if cannot be use, will need radu vs permcath, however permcath has to be done once bacterimia cleared -cwepogen afte HD - fu repeat bld cx - avoid bp/blood draws in LUE to preserve access -c/w Phoslo -parathyroid studies: calcium is normal, vit D is normal, PTH is normal Consultation Date/Type/Reason Admit Date/Time Feb 18, 2019 at 12:24 Initial Consult Date 02/20/19 Date/Time of Note DATE: 02/22/19 TIME: 13:54 24 HR Interval Summary Free Text/Dictation Repeat bld cx pending no fevers Exam/Review of Systems Exam Vitals Vital Signs Date Temp Pulse Resp B/P (MAP) Pulse Ox O2 O2 Flow FiO2 Time Delivery Rate 02/22/19 98.1 75 16 165/90 98 Room Air 11:25 (115) 02/21/19 21 19:55 02/20/19 2.0 01:58 Intake and Output 02/21/19 02/21/19 02/22/19 1515:00 23:00 07:00 IntakeIntake Total 700 ml BalanceBalance 700 ml Exam eft arm immature AV fistula Constitutional: alert, oriented Respiratory: clear to auscultation Cardiovascular: regular rate and rhythm Gastrointestinal: soft Musculoskeletal: nl extremities to inspection left av fistul +brui/thrill Results Result Diagram: 02/22/19 0509 02/22/19 0509 Results 24hrs Laboratory Tests Test 02/21/19 17:09 02/21/19 21:12 02/22/19 04:55 02/22/19 05:09 Bedside Glucose 174 179 124 White Blood Count 5.5 Red Blood Count 3.19 L Hemoglobin 9.7 L Hematocrit 27.6 L Mean Corpuscular Volume 86.5 Mean Corpuscular 30.4 Hemoglobin Mean Corpuscular 35.1 Hemoglobin Concent Red Cell Distribution 13.3 Width Platelet Count 143 # Mean Platelet Volume 11.1 H Immature Granulocytes % 1.300 H Neutrophils % 61.2 Lymphocytes % 22.0 Monocytes % 11.8 H Eosinophils % 3.3 Basophils % 0.4 Nucleated Red Blood 0.0 Cells % Immature Granulocytes # 0.070 H Neutrophils # 3.4 Lymphocytes # 1.2 Monocytes # 0.7 Eosinophils # 0.2 Basophils # 0.0 Nucleated Red Blood 0.0 Cells # Sodium Level 142 Potassium Level 3.8 Chloride Level 108 Carbon Dioxide Level 22 Anion Gap 12 Blood Urea Nitrogen 53 H Creatinine 7.33 H Est Glomerular Filtrat 8 L Rate mL/min Glucose Level 138 Calcium Level 8.6 Phosphorus Level 3.5 Magnesium Level 2.2 Test 02/22/19 07:32 02/22/19 11:53 Bedside Glucose 135 148 Medications Medication Current Medications IV Flush (NS 3 ml) 3 ml PER PROTOCOL IV ; Start 02/18/19 at 13:00 Ondansetron HCl (Zofran Inj) 4 mg Q6H PRN IV NAUSEA/VOMITING Last administered on 02/18/19at 22:50; Admin Dose 4 MG; Start 02/18/19 at 13:00 Acetaminophen (Tylenol Tab) 650 mg Q6H PRN PO .PAIN 1-3 OR TEMP Last administered on 02/20/19at 23:56; Admin Dose 650 MG; Start 02/18/19 at 13:00 Acetaminophen/ Hydrocodone Bitart ([place] (5/325)) 1 tab Q6H PRN PO .PAIN 4-6; Start 02/18/19 at 13:00 Morphine Sulfate (morphine) 2 mg Q4H PRN IV .PAIN 7-10 Last administered on 02/18/19at 22:57; Admin Dose 2 MG; Start 02/18/19 at 13:00 Vancomycin HCl (Vanco Iv Per Pharmacy) VANCOMYCIN PER PHARMACY PER PROTOCOL XX ; Start 02/18/19 at 13:00 Calcium Acetate (Phoslo) 667 mg WITH LUNCH PO Last administered on 02/22/19at 11:56; Admin Dose 667 MG; Start 02/19/19 at 12:00 Diagnostic Test (Pha) (Accu-Chek) 1 ea 02 XX ; Start 02/19/19 at 02:00 Insulin Aspart (Novolog Insulin Pen) NOVOLOG *MILD* ALGORITHM WITH MEALS BEDTIME SC Last administered on 02/21/19at 17:23; Admin Dose 1 UNIT; Start 02/19/19 at 08:00 Miscellaneous Information 1 ea NOTE XX ; Start 02/18/19 at 22:30 Glucose (Glutose) 15 gm Q15M PRN PO DECREASED GLUCOSE; Start 02/18/19 at 22:30 Glucose (Glutose) 22.5 gm Q15M PRN PO DECREASED GLUCOSE; Start 02/18/19 at 22:30 Dextrose (D50w Syringe) 25 ml Q15M PRN IV DECREASED GLUCOSE; Start 02/18/19 at 22:30 Dextrose (D50w Syringe) 50 ml Q15M PRN IV DECREASED GLUCOSE; Start 02/18/19 at 22:30 Glucagon (Glucagen) 1 mg Q15M PRN IM DECREASED GLUCOSE; Start 02/18/19 at 22:30 Glucose (Glutose) 15 gm Q15M PRN BUCCAL DECREASED GLUCOSE; Start 02/18/19 at 2 2:30 Heparin Sodium (Porcine) (Heparin (1000 Units/ml)) 4,100 unit AFTER DIALYSIS CATHETER Last administered on 02/19/19at 12:53; Admin Dose 4,100 UNIT; Start 02/19/19 at 09:00 Famotidine (Pepcid) 20 mg HS PO Last administered on 02/21/19at 21:14; Admin Dose 20 MG; Start 02/19/19 at 21:00 Epoetin Alexis-epbx (Retacrit (Esrd)) 4,000 unit MoWeFr@1700 SC ; Start 02/22/19 at 17:00 Ceftriaxone Sodium 50 ml @ 100 mls/hr Q24H IVPB Last administered on 02/21/19 17:11; Admin Dose 100 MLS/HR; Start 02/20/19 at 16:30 Insulin Glargine (Lantus) 10 units DAILY@2000 SC Last administered on 7/7/19at 21:20; Admin Dose 10 UNITS; Start 02/21/19 at 20:00 DANA CASAS MD Feb 22, 2019 13:54
--- NOTE | 2019-02-22 14:17 | RADRPT ---
PROCEDURE: Right internal jugular vein tunneled hemodialysis catheter removal. CLINICAL INDICATION: Right internal jugular vein tunneled dialysis catheter no longer required. TECHNIQUE: INTRAPROCEDURE MEDICATIONS: 1% lidocaine subcutaneous. The procedure, risks, benefits, complications and alternatives were explained to the patient. Consent was obtained. A procedural pause was performed prior to the procedure. The patient's name, date of b irth, and procedure to be performed were verified. The right anterior chest wall was prepped and draped. One percent lidocaine was used as local anesthe bettye at the site of the dialysis catheter. Fluoroscopic guidance was used. A 1 cm incision was made u tilizing a 11 blade scalpel. Utilizing blunt dissection the tunneled catheter was mobilized. The cat heter was then removed. Pressure was applied to the region of the internal jugular vein and the chest wall at the site of the catheter until adequate hemostasis was obtained. A dressing was applied. 0 .1 minutes of fluoroscopy time was used. Several images of the chest were obtained with image intensi fier. Specimens: None. Blood loss: 1 ml. Complications: None. [employer] Work[employer]: None. Anesthesia: Local and moderate sedation. Graft/Implant: None. COMPARISON: None. FINDINGS: Successful removal of tunneled dialysis catheter. Preoperative image demonstrates the tunneled dialys is catheter in position. Postoperative image demonstrates successful removal of the dialysis cathete r. IMPRESSION: 1. Successful removal of right internal jugular vein tunneled dialysis catheter. Physician Burton Date Time Electronically viewed and signed by Physician Burton on 02/22/2019 14:17 RD/
--- NOTE | 2019-02-22 15:20 | CONS ---
Assessment/Plan Assessment/Plan Hospital Course (Demo Recall) ID PROGRESS NOTE CURRENT ABX: DAY # 4.5 =>Vanco IV + Zosyn Cefepime 24H INTERVAL SUMMARY * A/A/O -- CLINICALLY STABLE -- NO NEW ISSUES --- He feels well, denies fevers/chills -- watching TV w/family in room, no complaints, no questions DIAGNOSTIC IMAGING * 02/18/19 CXR: No evidence of acute cardiopulmonary process, allowing for decreased lung volumes and bibasilar atelectasis. * 02/18/19 CT: 1. Mild atrophic kidneys with mild renal cortical scarring.2. Bilateral multiple small 2-4 mm non-obstructing calcified calculi. No obstructive uropathy bilaterally.3. No gastrointestinal disease.4. Tiny fat containing umbilical hernia without herniated hour strangulation. MICRO * 02/19/19 PermCath removal site wound cx: WOUND CULTURE Final No growth after 3 days * 02/18/19 BCX (+) 2/2 bottles: Organism 1 STAPHYLOCOCCUS AUREUS S AUREUS M.I.C. RX --------- --- CEFAZOLIN S CIPROFLOXACIN <=0.5 S CLINDAMYCIN <=0.25 S DOXYCYCLINE S ERYTHROMYCIN <=0.25 S LEVOFLOXACIN <=0.12 S OXACILLIN <=0.25 S PENICILLIN-G R RIFAMPIN <=0.5 S VANCOMYCIN <=0.5 S TRIMETHOPRIM/SULFAMETHOXAZOLE <=10 S PHYSICAL EXAMINATION: GENERAL: VSS, NAD HEENT: AT, NC, NECK: Supple, CHEST: Rise symmetrical HEART: Pulse RRR ABDOMEN: Benign EXTREMITIES: Warm, dry == left lower ext dsg c/d/i SKIN: No rash, no diaphoresis ID ASSESSMENT 53 yo M admit with: Sepsis associated w/fevers/chills/N/V prior to admission * -Secondary to STAPH bacteremia ==> PermCath line infx suspected and now removed Staph aureus bacteremia-> Line sepsis -- pending final ID C&S DM w/polyneuropathies: Renal, suspect Gastroparesis Nausea w/emesis -- likely related to sepsis, suspect gastroparesis => CT (-)for acute gastroenteritis/gastric ESRD-> HD * LINE HOLIDAY --> PLAN reinsert Dung on Friday to dialyze temporary before new PermCath placed sometime midweek next week. * Immature left arm fistula Tiny fat containing umbilical hernia without herniated hour strangulation. Bilateral multiple small 2-4 mm non-obstructing calcified calculi. No obstructive uropathy bilaterally Hx of remote hepatic abscess-> s/p 01/23/2015 CT-guided drainage of liver abscess ABX ALLERGIES: KNDA INVASIVES: PIV CURRENT ABX: DAY # 3.5 =>Vanco IV + Zosyn Cefepime ID RECOMMENDATIONS/PLAN: 1. Continue Vanco IV post HD for a total of 14 days 2. Ceftriaxone daily prior to placement of new PermCath 2. LINE HOLIDAY --> PLAN reinsert Dung on Friday to dialyze temporary before new PermCath placed sometime midweek next week. * Continue dual ABX coverage until new PermCATH placed next week then anticipate DC on Vanco IV to be given at HD center to complete 14 days until 03/14/19 last day . Consultation Date/Type/Reason Admit Date/Time Feb 18, 2019 at 12:24 Initial Consult Date Date/Time of Note DATE: 02/22/19 TIME: 15:19 Exam/Review of Systems Exam Vitals Vital Signs Date Temp Pulse Resp B/P (MAP) Pulse Ox O2 O2 Flow FiO2 Time Delivery Rate 02/22/19 74 18 169/94 98 Room Air 13:50 (119) 02/22/19 98.1 11:25 02/21/19 21 19:55 02/20/19 2.0 01:58 Intake and Output 02/21/19 02/21/19 02/22/19 1515:00 23:00 07:00 IntakeIntake Total 700 ml BalanceBalance 700 ml Results Result Diagram: 02/22/19 0509 02/22/19 0509 Results 24hrs Laboratory Tests Test 02/21/19 17:09 02/21/19 21:12 02/22/19 04:55 02/22/19 05:09 Bedside Glucose 174 179 124 White Blood Count 5.5 Red Blood Count 3.19 L Hemoglobin 9.7 L Hematocrit 27.6 L Mean Corpuscular Volume 86.5 Mean Corpuscular 30.4 Hemoglobin Mean Corpuscular 35.1 Hemoglobin Concent Red Cell Distribution 13.3 Width Platelet Count 143 # Mean Platelet Volume 11.1 H Immature Granulocytes % 1.300 H Neutrophils % 61.2 Lymphocytes % 22.0 Monocytes % 11.8 H Eosinophils % 3.3 Basophils % 0.4 Nucleated Red Blood 0.0 Cells % Immature Granulocytes # 0.070 H Neutrophils # 3.4 Lymphocytes # 1.2 Monocytes # 0.7 Eosinophils # 0.2 Basophils # 0.0 Nucleated Red Blood 0.0 Cells # Sodium Level 142 Potassium Level 3.8 Chloride Level 108 Carbon Dioxide Level 22 Anion Gap 12 Blood Urea Nitrogen 53 H Creatinine 7.33 H Est Glomerular Filtrat 8 L Rate mL/min Glucose Level 138 Calcium Level 8.6 Phosphorus Level 3.5 Magnesium Level 2.2 Test 02/22/19 07:32 02/22/19 11:53 Bedside Glucose 135 148 Medications Medication Current Medications IV Flush (NS 3 ml) 3 ml PER PROTOCOL IV ; Start 02/18/19 at 13:00 Ondansetron HCl (Zofran Inj) 4 mg Q6H PRN IV NAUSEA/VOMITING Last administered on 02/18/19at 22:50; Admin Dose 4 MG; Start 02/18/19 at 13:00 Acetaminophen (Tylenol Tab) 650 mg Q6H PRN PO .PAIN 1-3 OR TEMP Last administered on 02/20/19at 23:56; Admin Dose 650 MG; Start 02/18/19 at 13:00 Acetaminophen/ Hydrocodone Bitart ([place] (5/325)) 1 tab Q6H PRN PO .PAIN 4-6; Start 02/18/19 at 13:00 Morphine Sulfate (morphine) 2 mg Q4H PRN IV .PAIN 7-10 Last administered on 02/18/19at 22:57; Admin Dose 2 MG; Start 02/18/19 at 13:00 Vancomycin HCl (Vanco Iv Per Pharmacy) VANCOMYCIN PER PHARMACY PER PROTOCOL XX ; Start 02/18/19 at 13:00 Calcium Acetate (Phoslo) 667 mg WITH LUNCH PO Last administered on 02/22/19at 11:56; Admin Dose 667 MG; Start 02/19/19 at 12:00 Diagnostic Test (Pha) (Accu-Chek) 1 ea 02 XX ; Start 02/19/19 at 02:00 Insulin Aspart (Novolog Insulin Pen) NOVOLOG *MILD* ALGORITHM WITH MEALS BEDTIME SC Last administered on 02/21/19at 17:23; Admin Dose 1 UNIT; Start 02/19/19 at 08:00 Miscellaneous Information 1 ea NOTE XX ; Start 02/18/19 at 22:30 Glucose (Glutose) 15 gm Q15M PRN PO DECREASED GLUCOSE; Start 02/18/19 at 22:30 Glucose (Glutose) 22.5 gm Q15M PRN PO DECREASED GLUCOSE; Start 02/18/19 at 22:30 Dextrose (D50w Syringe) 25 ml Q15M PRN IV DECREASED GLUCOSE; Start 02/18/19 at 22:30 Dextrose (D50w Syringe) 50 ml Q15M PRN IV DECREASED GLUCOSE; Start 02/18/19 at 22:30 Glucagon (Glucagen) 1 mg Q15M PRN IM DECREASED GLUCOSE; Start 02/18/19 at 22:30 Glucose (Glutose) 15 gm Q15M PRN BUCCAL DECREASED GLUCOSE; Start 02/18/19 at 22:30 Heparin Sodium (Porcine) (Heparin (1000 Units/ml)) 4,100 unit AFTER DIALYSIS CATHETER Last administered on 02/19/19at 12:53; Admin Dose 4,100 UNIT; Start 02/19/19 at 09:00 Famotidine (Pepcid) 20 mg HS PO Last administered on 02/21/19at 21:14; Admin Dose 20 MG; Start 02/19/19 at 21:00 Epoetin Alexis-epbx (Retacrit (Esrd)) 4,000 unit MoWeFr@1700 SC ; Start 02/22/19 at 17:00 Ceftriaxone Sodium 50 ml @ 100 mls/hr Q24H IVPB Last administered on 02/21/19 17:11; Admin Dose 100 MLS/HR; Start 02/20/19 at 16:30 Insulin Glargine (Lantus) 10 units DAILY@2000 SC Last administered on 02/21/19 21:20; Admin Dose 10 UNITS; Start 02/21/19 at 20:00 RA MARTINEZ NP Feb 22, 2019 15:20
[2019-02-22] MEDS ORDERED: EPOETIN ALFA-EPBX (ESRD) 4,000 UNIT/ML VIAL SC SCH (17:00)
[2019-02-22] MEDS: CEFTRIAXONE 1 GM/50 ML (PMX) 50 ML IVPB SCH (17:39)
[2019-02-22] MEDS: FAMOTIDINE 20 MG TAB PO SCH (21:03)
[2019-02-22] MEDS: INSULIN GLARGINE [LANTus] (100 UNITS/ML) SYG SC SCH (21:07)
[2019-02-23] VITALS: BP 163/89; PULSE 69; RESP 18
[2019-02-23] MEDS: ACCU-CHEK XX SCH (02:00)
[2019-02-23 04:00] VITALS: BP 150/71; PULSE 66; RESP 18
[2019-02-23 07:46] VITALS: BP 167/93; PULSE 77; RESP 17
[2019-02-23] MEDS: INSULIN ASPART [NOVOLOG] 3 ML PEN SC SCH ×4 (08:00→21:00)
--- NOTE | 2019-02-23 10:38 | PN ---
Date/Time of Note Date/Time of Note DATE: 02/23/19 TIME: 10:28 Assessment/Plan VTE Prophylaxis Risk score (from Ns)>0 risk: 1 SCD applied (from Ns): No SCD contraindicated: other Pharmacological prophylaxis: NA/contraindicated Pharm contraindication: renal impairment Lines/Catheters IV [facility]ter [facility]from [facility] Saline Lock Urinary Cath still in place: No Assessment/Plan Assessment/Plan 1. Sepsis secondary to staph bacteremia- improving - Repeat blood cultures negative. Will need to continue Vancomycin with HD until 03/14 per ID recommendations - source is Permacath which was removed - ID on board and appreciate consultation. Continue current antibiotics per recommendations 2. ESRD on HD - Nephrology on board and appreciate recommendations. Would like one more session of HD via AV fistula prior to determining if needs more time to mature. If unable to use, will need permacath placement prior to d/c. Patient states has had AVF for 7 months - Vascular surgery consultation appreciated - US SYED noted 3. Disposition - Will need one more session of HD via AF fistula to evaluate if adequate solute clearance. CM consulted to help arrange IV Vancomycin with HD until 03/14 Result Diagram: 02/23/19 0458 02/23/19 0458 Results 24hrs Laboratory Tests Test 02/22/19 11:53 02/22/19 17:14 02/22/19 20:36 02/23/19 04:58 Bedside Glucose 148 105 161 White Blood Count 7.0 # Red Blood Count 3.07 L Hemoglobin 9.5 L Hematocrit 26.5 L Mean Corpuscular Volume 86.3 Mean Corpuscular 30.9 Hemoglobin Mean Corpuscular 35.8 Hemoglobin Concent Red Cell Distribution 13.2 Width Platelet Count 169 Mean Platelet Volume 10.7 H Immature Granulocytes % 2.400 H Neutrophils % 58.7 Lymphocytes % 24.2 Monocytes % 10.8 Eosinophils % 3.2 Basophils % 0.7 Nucleated Red Blood 0.0 Cells % Immature Granulocytes # 0.170 H Neutrophils # 4.1 Lymphocytes # 1.7 Monocytes # 0.8 Eosinophils # 0.2 Basophils # 0.1 Nucleated Red Blood 0.0 Cells # Sodium Level 143 Potassium Level 4.2 Chloride Level 105 Carbon Dioxide Level 29 Anion Gap 9 Blood Urea Nitrogen 39 #H Creatinine 5.99 H Glucose Level 131 Calcium Level 8.7 Phosphorus Level 3.6 Magnesium Level 2.0 Albumin 3.6 Random Vancomycin Level 9.3 Test 02/23/19 07:59 Bedside Glucose 118 Subjective 24 Hr Interval Summary Free Text/Dictation Patient doing well and denies any chest pain, fevers, or shortness of breath. no acute overnight events. Exam/Review of Systems Exam Vitals Vital Signs Date Temp Pulse Resp B/P (MAP) Pulse Ox O2 O2 Flow FiO2 Time Delivery Rate 02/23/19 98.1 77 17 167/93 97 07:46 (117) 02/23/19 Room Air 04:00 02/21/19 21 19:55 02/20/19 2.0 01:58 Intake and Output 02/22/19 02/22/19 02/23/19 1515:00 23:00 07:00 IntakeIntake Total 680 ml 480 ml 300 ml OutputOutput Total 200 ml 1700 ml BalanceBalance 480 ml -1220 ml 300 ml Exam General: Patient is ambulating around the room. no acute distress Chest: dressing left chest wall clean and dry Neck: Supple Respiratory: Clear to auscultation bilaterally. no wheezing or rhonchi Cardiovascular: regular rate and rhythm, no obvious murmurs Gastrointestinal: soft, non-tender to palpation, bowel sounds heard. Ext: no edema, cyanosis, or clubbing Skin: No new skin lesions Results Results 24hrs Laboratory Tests Test 02/22/19 11:53 02/22/19 17:14 02/22/19 20:36 02/23/19 04:58 Bedside Glucose 148 105 161 White Blood Count 7.0 # Red Blood Count 3.07 L Hemoglobin 9.5 L Hematocrit 26.5 L Mean Corpuscular Volume 86.3 Mean Corpuscular 30.9 Hemoglobin Mean Corpuscular 35.8 Hemoglobin Concent Red Cell Distribution 13.2 Width Platelet Count 169 Mean Platelet Volume 10.7 H Immature Granulocytes % 2.400 H Neutrophils % 58.7 Lymphocytes % 24.2 Monocytes % 10.8 Eosinophils % 3.2 Basophils % 0.7 Nucleated Red Blood 0.0 Cells % Immature Granulocytes # 0.170 H Neutrophils # 4.1 Lymphocytes # 1.7 Monocytes # 0.8 Eosinophils # 0.2 Basophils # 0.1 Nucleated Red Blood 0.0 Cells # Sodium Level 143 Potassium Level 4.2 Chloride Level 105 Carbon Dioxide Level 29 Anion Gap 9 Blood Urea Nitrogen 39 #H Creatinine 5.99 H Glucose Level 131 Calcium Level 8.7 Phosphorus Level 3.6 Magnesium Level 2.0 Albumin 3.6 Random Vancomycin Level 9.3 Test 02/23/19 07:59 Bedside Glucose 118 Medications Medication Current Medications IV Flush (NS 3 ml) 3 ml PER PROTOCOL IV ; Start 02/18/19 at 13:00 Ondansetron HCl (Zofran Inj) 4 mg Q6H PRN IV NAUSEA/VOMITING Last administered on 02/18/19at 22:50; Admin Dose 4 MG; Start 02/18/19 at 13:00 Acetaminophen (Tylenol Tab) 650 mg Q6H PRN PO .PAIN 1-3 OR TEMP Last administered on 02/20/19at 23:56; Admin Dose 650 MG; Start 02/18/19 at 13:00 Acetaminophen/ Hydrocodone Bitart ([place] (5/325)) 1 tab Q6H PRN PO .PAIN 4-6; Start 02/18/19 at 13:00 Morphine Sulfate (morphine) 2 mg Q4H PRN IV .PAIN 7-10 Last administered on 02/18/19at 22:57; Admin Dose 2 MG; Start 02/18/19 at 13:00 Vancomycin HCl (Vanco Iv Per Pharmacy) VANCOMYCIN PER PHARMACY PER PROTOCOL XX ; Start 02/18/19 at 13:00 Calcium Acetate (Phoslo) 667 mg WITH LUNCH PO Last administered on 02/22/19at 11:56; Admin Dose 667 MG; Start 02/19/19 at 12:00 Diagnostic Test (Pha) (Accu-Chek) 1 ea 02 XX ; Start 02/19/19 at 02:00 Insulin Aspart (Novolog Insulin Pen) NOVOLOG *MILD* ALGORITHM WITH MEALS BEDTIME SC Last administered on 02/21/19at 17:23; Admin Dose 1 UNIT; Start 02/19/19 at 08:00 Miscellaneous Information 1 ea NOTE XX ; Start 02/18/19 at 22:30 Glucose (Glutose) 15 gm Q15M PRN PO DECREASED GLUCOSE; Start 02/18/19 at 22:30 Glucose (Glutose) 22.5 gm Q15M PRN PO DECREASED GLUCOSE; Start 02/18/19 at 22:30 Dextrose (D50w Syringe) 25 ml Q15M PRN IV DECREASED GLUCOSE; Start 02/18/19 at 22:30 Dextrose (D50w Syringe) 50 ml Q15M PRN IV DECREASED GLUCOSE; Start 02/18/19 at 22:30 Glucagon (Glucagen) 1 mg Q15M PRN IM DECREASED GLUCOSE; Start 02/18/19 at 22:30 Glucose (Glutose) 15 gm Q15M PRN BUCCAL DECREASED GLUCOSE; Start 02/18/19 at 22:30 Heparin Sodium (Porcine) (Heparin (1000 Units/ml)) 4,100 unit AFTER DIALYSIS CATHETER Last administered on 02/19/19 12:53; Admin Dose 4,100 UNIT; Start 02/19/19 at 09:00 Famotidine (Pepcid) 20 mg HS PO Last administered on 02/22/19 21:03; Admin Dose 20 MG; Start 02/19/19 at 21:00 Epoetin Alexis-epbx (Retacrit (Esrd)) 4,000 unit MoWeFr@1700 SC Last administered on 02/22/19 18:41; Admin Dose 4,000 UNIT; Start 02/22/19 at 17:00 Ceftriaxone Sodium 50 ml @ 100 mls/hr Q24H IVPB Last administered on 02/22/19 17:39; Admin Dose 100 MLS/HR; Start 02/20/19 at 16:30 Insulin Glargine (Lantus) 10 units DAILY@2000 SC Last administered on 02/22/19 21:07; Admin Dose 10 UNITS; Start 02/21/19 at 20:00 Vancomycin HCl 1.25 gm/Sodium Chloride 250 ml @ 83.333 mls/ hr ONCE IVPB ; Start 02/23/19 at 14:00; Stop 02/23/19 at 16:59 GUDELIA NORIEGA MD Feb 23, 2019 10:38
[2019-02-23 11:34] VITALS: BP 131/84; PULSE 76; RESP 16
[2019-02-23] MEDS: CALCIUM ACETATE 667 MG CAP PO SCH (12:02)
--- NOTE | 2019-02-23 13:08 | CONS ---
Assessment/Plan Assessment/Plan Assessment/Plan (Daily) Hospital Course (Demo Recall) 1. End-stage renal disease on hemodialysis. 2. Sepsis with leukocytosis and lactic acidosis with staph aureus bacterimnia cynthia due to permacath s/p permcath removal , fevers subsided sp removal 3. Negative urinary tract infection, UA neg. Urine culture negative. 4. History of hypertension, currently normotensive. 5. Diabetes mellitus controlled. 6. Fevers, tachycardia, likely secondary to systemic inflammatory response syndrome/sepsis. CT of the abdomen and pelvis shows questionable gastroenteritis; 7. Normocytic normochromic anemia 2/2 chronic kidney disaease 8. Overweight Assessment/Plan (Daily) -c/w vancomycin per ID -Will do 1 session of HD tmw via fistula , good clearence today, used 17 guage with 250 blood flow, if used successfully wiill be cleared to dc -cw epogen afte HD - fu repeat bld cx neg so far - avoid bp/blood draws in LUE to preserve access -c/w Phoslo -parathyroid studies: calcium is normal, vit D is normal, PTH is macey Consultation Date/Type/Reason Admit Date/Time Feb 18, 2019 at 12:24 Initial Consult Date 02/20/19 Date/Time of Note DATE: 02/23/19 TIME: 13:02 24 HR Interval Summary Free Text/Dictation sp successful HD yesterday with 17 guage needle and 250 blood flow Exam/Review of Systems Exam Vitals Vital Signs Date Temp Pulse Resp B/P (MAP) Pulse Ox O2 O2 Flow FiO2 Time Delivery Rate 02/23/19 98.3 76 16 131/84 97 11:34 (100) 02/23/19 Room Air 04:00 02/21/19 21 19:55 02/20/19 2.0 01:58 Intake and Output 02/22/19 02/22/19 02/23/19 1515:00 23:00 07:00 IntakeIntake Total 680 ml 480 ml 300 ml OutputOutput Total 200 ml 1700 ml BalanceBalance 480 ml -1220 ml 300 ml Exam eft arm immature AV fistula Constitutional: alert, oriented Respiratory: clear to auscultation Cardiovascular: regular rate and rhythm Gastrointestinal: soft Musculoskeletal: nl extremities to inspection left av fistul +brui/thrill Results Result Diagram: 02/23/19 0458 02/23/19 0458 Results 24hrs Laboratory Tests Test 02/22/19 17:14 02/22/19 20:36 02/23/19 04:58 02/23/19 07:59 Bedside Glucose 105 161 118 White Blood Count 7.0 # Red Blood Count 3.07 L Hemoglobin 9.5 L Hematocrit 26.5 L Mean Corpuscular Volume 86.3 Mean Corpuscular 30.9 Hemoglobin Mean Corpuscular 35.8 Hemoglobin Concent Red Cell Distribution 13.2 Width Platelet Count 169 Mean Platelet Volume 10.7 H Immature Granulocytes % 2.400 H Neutrophils % 58.7 Lymphocytes % 24.2 Monocytes % 10.8 Eosinophils % 3.2 Basophils % 0.7 Nucleated Red Blood 0.0 Cells % Immature Granulocytes # 0.170 H Neutrophils # 4.1 Lymphocytes # 1.7 Monocytes # 0.8 Eosinophils # 0.2 Basophils # 0.1 Nucleated Red Blood 0.0 Cells # Sodium Level 143 Potassium Level 4.2 Chloride Level 105 Carbon Dioxide Level 29 Anion Gap 9 Blood Urea Nitrogen 39 #H Creatinine 5.99 H Glucose Level 131 Calcium Level 8.7 Phosphorus Level 3.6 Magnesium Level 2.0 Albumin 3.6 Random Vancomycin Level 9.3 Test 02/23/19 11:53 Bedside Glucose 151 Medications Medication Current Medications IV Flush (NS 3 ml) 3 ml PER PROTOCOL IV ; Start 02/18/19 at 13:00 Ondansetron HCl (Zofran Inj) 4 mg Q6H PRN IV NAUSEA/VOMITING Last administered on 02/18/19at 22:50; Admin Dose 4 MG; Start 02/18/19 at 13:00 Acetaminophen (Tylenol Tab) 650 mg Q6H PRN PO .PAIN 1-3 OR TEMP Last administered on 02/20/19at 23:56; Admin Dose 650 MG; Start 02/18/19 at 13:00 Acetaminophen/ Hydrocodone Bitart ([place] (5/325)) 1 tab Q6H PRN PO .PAIN 4-6; Start 02/18/19 at 13:00 Morphine Sulfate (morphine) 2 mg Q4H PRN IV .PAIN 7-10 Last administered on 02/18/19at 22:57; Admin Dose 2 MG; Start 02/18/19 at 13:00 Vancomycin HCl (Vanco Iv Per Pharmacy) VANCOMYCIN PER PHARMACY PER PROTOCOL XX ; Start 02/18/19 at 13:00 Calcium Acetate (Phoslo) 667 mg WITH LUNCH PO Last administered on 02/23/19at 12:02; Admin Dose 667 MG; Start 02/19/19 at 12:00 Diagnostic Test (Pha) (Accu-Chek) 1 ea 02 XX ; Start 02/19/19 at 02:00 Insulin Aspart (Novolog Insulin Pen) NOVOLOG *MILD* ALGORITHM WITH MEALS BEDTIME SC Last administered on 02/23/19at 12:24; Admin Dose 1 UNIT; Start 02/19/19 at 08:00 Miscellaneous Information 1 ea NOTE XX ; Start 02/18/19 at 22:30 Glucose (Glutose) 15 gm Q15M PRN PO DECREASED GLUCOSE; Start 02/18/19 at 22:30 Glucose (Glutose) 22.5 gm Q15M PRN PO DECREASED GLUCOSE; Start 02/18/19 at 22:30 Dextrose (D50w Syringe) 25 ml Q15M PRN IV DECREASED GLUCOSE; Start 02/18/19 at 22:30 Dextrose (D50w Syringe) 50 ml Q15M PRN IV DECREASED GLUCOSE; Start 02/18/19 at 22:30 Glucagon (Glucagen) 1 mg Q15M PRN IM DECREASED GLUCOSE; Start 02/18/19 at 22:30 Glucose (Glutose) 15 gm Q15M PRN BUCCAL DECREASED GLUCOSE; Start 02/18/19 at 22:30 Heparin Sodium (Porcine) (Heparin (1000 Units/ml)) 4,100 unit AFTER DIALYSIS CATHETER Last administered on 02/19/19at 12:53; Admin Dose 4,100 UNIT; Start 02/19/19 at 09:00 Famotidine (Pepcid) 20 mg HS PO Last administered on 02/22/19at 21:03; Admin Dose 20 MG; Start 02/19/19 at 21:00 Epoetin Alexis-epbx (Retacrit (Esrd)) 4,000 unit MoWeFr@1700 SC Last administered on 02/22/19at 18:41; Admin Dose 4,000 UNIT; Start 02/22/19 at 17:00 Ceftriaxone Sodium 50 ml @ 100 mls/hr Q24H IVPB Last administered on 02/22/19 17:39; Admin Dose 100 MLS/HR; Start 02/20/19 at 16:30 Insulin Glargine (Lantus) 10 units DAILY@2000 SC Last administered on 02/22/19at 21:07; Admin Dose 10 UNITS; Start 02/21/19 at 20:00 Vancomycin HCl 1.25 gm/Sodium Chloride 250 ml @ 83.333 mls/ hr ONCE IVPB ; Start 02/23/19 at 14:00; Stop 02/23/19 at 16:59 DANA CASAS MD Feb 23, 2019 13:08
[2019-02-23] MEDS ORDERED: VANCOMYCIN HCL 1.25 GM in SOD CHLORIDE 0.9% 250 ML IVPB SCH (14:00)
--- NOTE | 2019-02-23 14:52 | CONS ---
Assessment/Plan Assessment/Plan Hospital Course (Demo Recall) Patient is alert feels good denies pain no fevers overnight. WBC 7 no shift no bands Indwelling: Left upper extremity AV fistula Microbiology: Blood culture on admission grew oxacillin sensitive staph aureus, repeat blood cultures negative Antimicrobials: Vancomycin and Rocephin Physical examination: Well-developed well-nourished middle-aged man who is alert in no distress. Head atraumatic normocephalic neck supple chest rise symmetrical breath sounds clear heart S1-S2 abdomen soft bowel sounds present extremities without cyanosis Assessment: 1. Oxacillin sensitive staph aureus bacteremia, status post permacath discontinued 2. End-stage renal disease, hemodialysis dependent Plan: Patient is stable, 2D echo revealed no vegetations, repeat blood cultures negative, anticipate discharge on IV vancomycin to complete 14 days Consultation Date/Type/Reason Admit Date/Time Feb 18, 2019 at 12:24 Initial Consult Date 02/20/19 Type of Consult id Date/Time of Note DATE: 02/23/19 TIME: 14:51 Exam/Review of Systems Exam Vitals Vital Signs Date Temp Pulse Resp B/P (MAP) Pulse Ox O2 O2 Flow FiO2 Time Delivery Rate 02/23/19 98.3 76 16 131/84 97 11:34 (100) 02/23/19 Room Air 04:00 02/21/19 21 19:55 02/20/19 2.0 01:58 Intake and Output 02/22/19 02/22/19 02/23/19 1515:00 23:00 07:00 IntakeIntake Total 680 ml 480 ml 300 ml OutputOutput Total 200 ml 1700 ml BalanceBalance 480 ml -1220 ml 300 ml Results Result Diagram: 02/23/19 0458 02/23/19 0458 Results 24hrs Laboratory Tests Test 02/22/19 17:14 02/22/19 20:36 02/23/19 04:58 02/23/19 07:59 Bedside Glucose 105 161 118 White Blood Count 7.0 # Red Blood Count 3.07 L Hemoglobin 9.5 L Hematocrit 26.5 L Mean Corpuscular Volume 86.3 Mean Corpuscular 30.9 Hemoglobin Mean Corpuscular 35.8 Hemoglobin Concent Red Cell Distribution 13.2 Width Platelet Count 169 Mean Platelet Volume 10.7 H Immature Granulocytes % 2.400 H Neutrophils % 58.7 Lymphocytes % 24.2 Monocytes % 10.8 Eosinophils % 3.2 Basophils % 0.7 Nucleated Red Blood 0.0 Cells % Immature Granulocytes # 0.170 H Neutrophils # 4.1 Lymphocytes # 1.7 Monocytes # 0.8 Eosinophils # 0.2 Basophils # 0.1 Nucleated Red Blood 0.0 Cells # Sodium Level 143 Potassium Level 4.2 Chloride Level 105 Carbon Dioxide Level 29 Anion Gap 9 Blood Urea Nitrogen 39 #H Creatinine 5.99 H Glucose Level 131 Calcium Level 8.7 Phosphorus Level 3.6 Magnesium Level 2.0 Albumin 3.6 Random Vancomycin Level 9.3 Test 02/23/19 11:53 Bedside Glucose 151 Medications Medication Current Medications IV Flush (NS 3 ml) 3 ml PER PROTOCOL IV ; Start 02/18/19 at 13:00 Ondansetron HCl (Zofran Inj) 4 mg Q6H PRN IV NAUSEA/VOMITING Last administered on 02/18/19at 22:50; Admin Dose 4 MG; Start 02/18/19 at 13:00 Acetaminophen (Tylenol Tab) 650 mg Q6H PRN PO .PAIN 1-3 OR TEMP Last administered on 02/20/19at 23:56; Admin Dose 650 MG; Start 02/18/19 at 13:00 Acetaminophen/ Hydrocodone Bitart ([place] (5/325)) 1 tab Q6H PRN PO .PAIN 4-6; Start 02/18/19 at 13:00 Morphine Sulfate (morphine) 2 mg Q4H PRN IV .PAIN 7-10 Last administered on 02/18/19at 22:57; Admin Dose 2 MG; Start 02/18/19 at 13:00 Vancomycin HCl (Vanco Iv Per Pharmacy) VANCOMYCIN PER PHARMACY PER PROTOCOL XX ; Start 02/18/19 at 13:00 Calcium Acetate (Phoslo) 667 mg WITH LUNCH PO Last administered on 02/23/19at 12:02; Admin Dose 667 MG; Start 02/19/19 at 12:00 Diagnostic Test (Pha) (Accu-Chek) 1 ea 02 XX ; Start 02/19/19 at 02:00 Insulin Aspart (Novolog Insulin Pen) NOVOLOG *MILD* ALGORITHM WITH MEALS BEDTIME SC Last administered on 02/23/19at 12:24; Admin Dose 1 UNIT; Start 02/19/19 at 08:00 Miscellaneous Information 1 ea NOTE XX ; Start 02/18/19 at 22:30 Glucose (Glutose) 15 gm Q15M PRN PO DECREASED GLUCOSE; Start 02/18/19 at 22:30 Glucose (Glutose) 22.5 gm Q15M PRN PO DECREASED GLUCOSE; Start 02/18/19 at 22:30 Dextrose (D50w Syringe) 25 ml Q15M PRN IV DECREASED GLUCOSE; Start 02/18/19 at 22:30 Dextrose (D50w Syringe) 50 ml Q15M PRN IV DECREASED GLUCOSE; Start 02/18/19 at 22:30 Glucagon (Glucagen) 1 mg Q15M PRN IM DECREASED GLUCOSE; Start 02/18/19 at 22:30 Glucose (Glutose) 15 gm Q15M PRN BUCCAL DECREASED GLUCOSE; Start 02/18/19 at 22:30 Heparin Sodium (Porcine) (Heparin (1000 Units/ml)) 4,100 unit AFTER DIALYSIS CATHETER Last administered on 02/19/19at 12:53; Admin Dose 4,100 UNIT; Start 02/19/19 at 09:00 Famotidine (Pepcid) 20 mg HS PO Last administered on 02/22/19at 21:03; Admin Dose 20 MG; Start 02/19/19 at 21:00 Epoetin Alexis-epbx (Retacrit (Esrd)) 4,000 unit MoWeFr@1700 SC Last administered on 02/22/19at 18:41; Admin Dose 4,000 UNIT; Start 02/22/19 at 17:00 Ceftriaxone Sodium 50 ml @ 100 mls/hr Q24H IVPB Last administered on 02/22/19at 17:39; Admin Dose 100 MLS/HR; Start 02/20/19 at 16:30 Insulin Glargine (Lantus) 10 units DAILY@2000 SC Last administered on 02/22/19at 21:07; Admin Dose 10 UNITS; Start 02/21/19 at 20:00 Vancomycin HCl 1.25 gm/Sodium Chloride 250 ml @ 83.333 mls/ hr ONCE IVPB ; Start 02/23/19 at 14:00; Stop 02/23/19 at 16:59 BRISEIDA DAVID NP Feb 23, 2019 14:51
[2019-02-23] MEDS ORDERED: CEFTRIAXONE 1 GM/50 ML (PMX) 50 ML IVPB SCH (15:00)
[2019-02-23 15:42] VITALS: BP 145/83; PULSE 80; RESP 17
[2019-02-23 20:00] VITALS: BP 159/84; PULSE 75; RESP 20
[2019-02-23] MEDS: INSULIN GLARGINE [LANTus] (100 UNITS/ML) SYG SC SCH (20:52)
[2019-02-23] MEDS: FAMOTIDINE 20 MG TAB PO SCH (21:00)
[2019-02-24] VITALS (17 sets, daily range): BP systolic 103–150; BP diastolic 59–88; PULSE 71–90; RESP 17–20
[2019-02-24] MEDS: ACCU-CHEK XX SCH (02:00)
[2019-02-24] MEDS: INSULIN ASPART [NOVOLOG] 3 ML PEN SC SCH ×2 (07:48→11:39)
--- NOTE | 2019-02-24 10:49 | PN ---
Date/Time of Note Date/Time of Note DATE: 02/24/19 TIME: 10:47 Assessment/Plan VTE Prophylaxis Risk score (from Ns)>0 risk: 1 [place]CD applied [place]from [facility] [place] SCD contraindicated: low risk/ambulating Pharmacological prophylaxis: NA/contraindicated Pharm contraindication: low risk/ambulating Lines/Catheters IV C[facility]ter Type (from [facility]): [facility] Urinary Cath still in place: No Assessment/Plan Assessment/Plan 1. Sepsis secondary to staph bacteremia- resolving - remains afebrile - ID on board and appreciate recommendations. Will need to complete Vancomycin until 03/14 - Repeat blood cultures negative. - source is Permacath which was removed 2. ESRD on HD - Nephrology on board and appreciate recommendations. Tolerated HD today and no issues with AVF access - Vascular surgery consultation appreciated - US LYNCH noted 3. Disposition - Medically stable for discharge home Result Diagram: 02/24/19 0548 02/24/19 0548 Results 24hrs Laboratory Tests Test 02/23/19 11:53 02/23/19 17:32 02/23/19 20:40 02/24/19 05:48 Bedside Glucose 151 117 143 White Blood Count 9.4 # Red Blood Count 3.10 L Hemoglobin 9.4 L Hematocrit 26.9 L Mean Corpuscular 86.8 Volume Mean Corpuscular 30.3 Hemoglobin Mean Corpuscular 34.9 Hemoglobin Concent Red Cell Distribution 13.5 Width Platelet Count 229 # Mean Platelet Volume 10.3 Immature Granulocytes 4.400 H % Neutrophils % Segmented Neutrophils 56 % (Manual) Band Neutrophils % 11 H (Manual) Lymphocytes % Lymphocytes % (Manual) 24 Reactive Lymphocytes 1 H % (Manual) Monocytes % Monocytes % (Manual) 3 Eosinophils % Eosinophils % (Manual) 3 Basophils % Basophils % (Manual) 1 Metamyelocytes % 1 H (manual) Nucleated Red Blood 0.0 Cells % Immature Granulocytes 0.410 H # Neutrophils # Neutrophils # (Manual) 5.4 Band Neutrophils # 1.0 H Lymphocytes (Manual) 2.2 Lymphocytes # Reactive Lymphocytes # 0.0 Monocytes # Monocytes # (Manual) 0.2 L Eosinophils # Basophils # Basophils # (Manual) 0.0 Metamyelocytes # 0.0 Nucleated Red Blood Cells # Platelet Estimate NORMAL Sodium Level 144 Potassium Level 4.0 Chloride Level 106 Carbon Dioxide Level 27 Anion Gap 11 Blood Urea Nitrogen 56 H Creatinine 7.96 H Glucose Level 118 Calcium Level 8.7 Phosphorus Level 4.4 Magnesium Level 2.1 Albumin 3.7 Test 02/24/19 07:39 Bedside Glucose 126 Subjective 24 Hr Interval Summary Free Text/Dictation Patient doing well and denies any new issues. No acute overnight events. HD completing and no issues with fistula. Exam/Review of Systems Exam Vitals Vital Signs Date Temp Pulse Resp B/P (MAP) Pulse Ox O2 O2 Flow FiO2 Time Delivery Rate 02/24/19 79 10:30 02/24/19 20 132/79 Room Air 07:10 (96) 02/24/19 98.0 96 04:00 02/21/19 21 19:55 Intake and Output 02/23/19 02/23/19 02/24/19 1515:00 23:00 07:00 IntakeIntake Total 850 ml 650 ml 500 ml OutputOutput Total 600 ml BalanceBalance 850 ml 650 ml -100 ml Exam General: Patient is currently getting HD and no distress noted Chest: dressing left chest wall clean and dry Neck: Supple Respiratory: Clear to auscultation bilaterally. no wheezing or rhonchi Cardiovascular: regular rate and rhythm, no obvious murmurs Gastrointestinal: soft, non-tender to palpation, bowel sounds heard. Ext: no edema, cyanosis, or clubbing Skin: No new skin lesions Results Results 24hrs Laboratory Tests Test 02/23/19 11:53 02/23/19 17:32 02/23/19 20:40 02/24/19 05:48 Bedside Glucose 151 117 143 White Blood Count 9.4 # Red Blood Count 3.10 L Hemoglobin 9.4 L Hematocrit 26.9 L Mean Corpuscular 86.8 Volume Mean Corpuscular 30.3 Hemoglobin Mean Corpuscular 34.9 Hemoglobin Concent Red Cell Distribution 13.5 Width Platelet Count 229 # Mean Platelet Volume 10.3 Immature Granulocytes 4.400 H % Neutrophils % Segmented Neutrophils 56 % (Manual) Band Neutrophils % 11 H (Manual) Lymphocytes % Lymphocytes % (Manual) 24 Reactive Lymphocytes 1 H % (Manual) Monocytes % Monocytes % (Manual) 3 Eosinophils % Eosinophils % (Manual) 3 Basophils % Basophils % (Manual) 1 Metamyelocytes % 1 H (manual) Nucleated Red Blood 0.0 Cells % Immature Granulocytes 0.410 H # Neutrophils # Neutrophils # (Manual) 5.4 Band Neutrophils # 1.0 H Lymphocytes (Manual) 2.2 Lymphocytes # Reactive Lymphocytes # 0.0 Monocytes # Monocytes # (Manual) 0.2 L Eosinophils # Basophils # Basophils # (Manual) 0.0 Metamyelocytes # 0.0 Nucleated Red Blood Cells # Platelet Estimate NORMAL Sodium Level 144 Potassium Level 4.0 Chloride Level 106 Carbon Dioxide Level 27 Anion Gap 11 Blood Urea Nitrogen 56 H Creatinine 7.96 H Glucose Level 118 Calcium Level 8.7 Phosphorus Level 4.4 Magnesium Level 2.1 Albumin 3.7 Test 02/24/19 07:39 Bedside Glucose 126 Medications Medication Current Medications IV Flush (NS 3 ml) 3 ml PER PROTOCOL IV ; Start 02/18/19 at 13:00 Ondansetron HCl (Zofran Inj) 4 mg Q6H PRN IV NAUSEA/VOMITING Last administered on 02/18/19at 22:50; Admin Dose 4 MG; Start 02/18/19 at 13:00 Acetaminophen (Tylenol Tab) 650 mg Q6H PRN PO .PAIN 1-3 OR TEMP Last admi nistered on 02/20/19at 23:56; Admin Dose 650 MG; Start 02/18/19 at 13:00 Acetaminophen/ Hydrocodone Bitart ([place] (5/325)) 1 tab Q6H PRN PO .PAIN 4-6; Start 02/18/19 at 13:00 Morphine Sulfate (morphine) 2 mg Q4H PRN IV .PAIN 7-10 Last administered on 02/18/19at 22:57; Admin Dose 2 MG; Start 02/18/19 at 13:00 Vancomycin HCl (Vanco Iv Per Pharmacy) VANCOMYCIN PER PHARMACY PER PROTOCOL XX ; Start 02/18/19 at 13:00 Calcium Acetate (Phoslo) 667 mg WITH LUNCH PO Last administered on 02/23/19at 12:02; Admin Dose 667 MG; Start 02/19/19 at 12:00 Diagnostic Test (Pha) (Accu-Chek) 1 ea 02 XX ; Start 02/19/19 at 02:00 Insulin Aspart (Novolog Insulin Pen) NOVOLOG *MILD* ALGORITHM WITH MEALS BEDTIME SC Last administered on 02/23/19at 12:24; Admin Dose 1 UNIT; Start 02/19/19 at 08:00 Miscellaneous Information 1 ea NOTE XX ; Start 02/18/19 at 22:30 Glucose (Glutose) 15 gm Q15M PRN PO DECREASED GLUCOSE; Start 02/18/19 at 22:30 Glucose (Glutose) 22.5 gm Q15M PRN PO DECREASED GLUCOSE; Start 02/18/19 at 22:30 Dextrose (D50w Syringe) 25 ml Q15M PRN IV DECREASED GLUCOSE; Start 02/18/19 at 22:30 Dextrose (D50w Syringe) 50 ml Q15M PRN IV DECREASED GLUCOSE; Start 02/18/19 at 22:30 Glucagon (Glucagen) 1 mg Q15M PRN IM DECREASED GLUCOSE; Start 02/18/19 at 22:30 Glucose (Glutose) 15 gm Q15M PRN BUCCAL DECREASED GLUCOSE; Start 02/18/19 at 22:30 Heparin Sodium (Porcine) (Heparin (1000 Units/ml)) 4,100 unit AFTER DIALYSIS CATHETER Last administered on 02/19/19at 12:53; Admin Dose 4,100 UNIT; Start 02/19/19 at 09:00 Famotidine (Pepcid) 20 mg HS PO Last administered on 02/23/19at 21:00; Admin Dose 20 MG; Start 02/19/19 at 21:00 Epoetin Alexis-epbx (Retacrit (Esrd)) 4,000 unit MoWeFr@1700 SC Last administered on 02/22/19 18:41; Admin Dose 4,000 UNIT; Start 02/22/19 at 17:00 Insulin Glargine (Lantus) 10 units DAILY@2000 SC Last administered on 02/23/19at 20:52; Admin Dose 10 UNITS; Start 02/21/19 at 20:00 Ceftriaxone Sodium 50 ml @ 100 mls/hr Q24H IVPB Last administered on 02/23/19at 15:37; Admin Dose 100 MLS/HR; Start 02/23/19 at 15:00 GUDELIA NORIEGA MD Feb 24, 2019 10:49
--- NOTE | 2019-02-24 10:55 | PDOCDIS ---
Discharge Instructions DIAGNOSIS Discharge Diagnosis 1. Sepsis secondary to staph bacteremia- resolving 2. ESRD on HD CONDITION [id number] Patient Condition: [id number] Stable HOME CARE INSTRUCTIONS: [id number] Special Diet: [id number] renal diet ACTIVITY: [id number] Activity Restrictions: [id number] No Restrictions FOLLOW UP/APPOINTMENTS Follow-up Plan 1. Follow up with your primary care physician in 1-2 weeks 2. Continue dialysis as previously scheduled 3. You will continue on Vancomycin with dialysis until 03/14/19 to complete treatment of your blood infection. 4. Continue all medications as prescribed except your Carvedilol was discontinued since your heart rate was running low. Please monitor your blood pressure at home and discuss with your PCP possibly restarting if needed 5. If experiencing any concerning symptoms. please go to your nearest emergency department 1. Siga con jimenez mdico de atencin primaria en 1-2 semanas 2. Contine con la dilisis segn lo programado anteriormente 3. Continuar con Vancomicina con dilisis hasta el 03/14/19 para completar el tratamiento de jimenez infeccin sangunea. 4. Contine con todos los medicamentos segn lo prescrito, excepto jimenez Carvedilol fue descontinuado ya que jimenez frecuencia cardaca se estaba agotando. Por favor, controle jimenez presin arterial en casa y discuta con jimenez PCP posiblemente reiniciando si es necesario 5. Si experimenta alguno relacionado con los sntomas. por favor vaya a jimenez departamento de emergencias GUDELIA Torres MD Feb 24, 2019 10:55
--- NOTE | 2019-02-24 11:03 | CONS ---
Assessment/Plan Assessment/Plan Hospital Course (Demo Recall) No events, looks comfortable, no fevers Indwelling: Left upper extremity AV fistula Microbiology: Blood culture on admission grew oxacillin sensitive staph aureus, repeat blood cultures negative Antimicrobials: Vancomycin and Rocephin Physical examination: Well-developed well-nourished middle-aged man who is alert in no distress. Head atraumatic normocephalic neck supple chest rise symm etrical breath sounds clear heart S1-S2 abdomen soft bowel sounds present extremities without cyanosis Assessment: 1. Oxacillin sensitive staph aureus bacteremia, status post permacath discontinued 2. End-stage renal disease, hemodialysis dependent Plan: Stable, pending discharge on IV vancomycin to complete 14 days Consultation Date/Type/Reason Admit Date/Time Feb 18, 2019 at 12:24 Initial Consult Date 02/20/19 Type of Consult id Date/Time of Note DATE: 02/24/19 TIME: 11:02 Exam/Review of Systems Exam Vitals Vital Signs Date Temp Pulse Resp B/P (MAP) Pulse Ox O2 O2 Flow FiO2 Time Delivery Rate 02/24/19 79 10:30 02/24/19 20 132/79 Room Air 07:10 (96) 02/24/19 98.0 96 04:00 02/21/19 21 19:55 Intake and Output 02/23/19 02/23/19 02/24/19 1515:00 23:00 07:00 IntakeIntake Total 850 ml 650 ml 500 ml OutputOutput Total 600 ml BalanceBalance 850 ml 650 ml -100 ml Results Result Diagram: 02/24/19 0548 02/24/19 0548 Results 24hrs Laboratory Tests Test 02/23/19 11:53 02/23/19 17:32 02/23/19 20:40 02/24/19 05:48 Bedside Glucose 151 117 143 White Blood Count 9.4 # Red Blood Count 3.10 L Hemoglobin 9.4 L Hematocrit 26.9 L Mean Corpuscular 86.8 Volume Mean Corpuscular 30.3 Hemoglobin Mean Corpuscular 34.9 Hemoglobin Concent Red Cell Distribution 13.5 Width Platelet Count 229 # Mean Platelet Volume 10.3 Immature Granulocytes 4.400 H % Neutrophils % Segmented Neutrophils 56 % (Manual) Band Neutrophils % 11 H (Manual) Lymphocytes % Lymphocytes % (Manual) 24 Reactive Lymphocytes 1 H % (Manual) Monocytes % Monocytes % (Manual) 3 Eosinophils % Eosinophils % (Manual) 3 Basophils % Basophils % (Manual) 1 Metamyelocytes % 1 H (manual) Nucleated Red Blood 0.0 Cells % Immature Granulocytes 0.410 H # Neutrophils # Neutrophils # (Manual) 5.4 Band Neutrophils # 1.0 H Lymphocytes (Manual) 2.2 Lymphocytes # Reactive Lymphocytes # 0.0 Monocytes # Monocytes # (Manual) 0.2 L Eosinophils # Basophils # Basophils # (Manual) 0.0 Metamyelocytes # 0.0 Nucleated Red Blood Cells # Platelet Estimate NORMAL Sodium Level 144 Potassium Level 4.0 Chloride Level 106 Carbon Dioxide Level 27 Anion Gap 11 Blood Urea Nitrogen 56 H Creatinine 7.96 H Glucose Level 118 Calcium Level 8.7 Phosphorus Level 4.4 Magnesium Level 2.1 Albumin 3.7 Test 02/24/19 07:39 Bedside Glucose 126 Medications Medication Current Medications IV Flush (NS 3 ml) 3 ml PER PROTOCOL IV ; Start 02/18/19 at 13:00 Ondansetron HCl (Zofran Inj) 4 mg Q6H PRN IV NAUSEA/VOMITING Last administered on 02/18/19at 22:50; Admin Dose 4 MG; Start 02/18/19 at 13:00 Acetaminophen (Tylenol Tab) 650 mg Q6H PRN PO .PAIN 1-3 OR TEMP Last administered on 02/20/19at 23:56; Admin Dose 650 MG; Start 02/18/19 at 13:00 Acetaminophen/ Hydrocodone Bitart ([place] (5/325)) 1 tab Q6H PRN PO .PAIN 4-6; Start 02/18/19 at 13:00 Morphine Sulfate (morphine) 2 mg Q4H PRN IV .PAIN 7-10 Last administered on 02/18/19at 22:57; Admin Dose 2 MG; Start 02/18/19 at 13:00 Vancomycin HCl (Vanco Iv Per Pharmacy) VANCOMYCIN PER PHARMACY PER PROTOCOL XX ; Start 02/18/19 at 13:00 Calcium Acetate (Phoslo) 667 mg WITH LUNCH PO Last administered on 02/23/19at 12:02; Admin Dose 667 MG; Start 02/19/19 at 12:00 Diagnostic Test (Pha) (Accu-Chek) 1 XX ; Start 02/19/19 at 02:00 Insulin Aspart (Novolog Insulin Pen) NOVOLOG *MILD* ALGORITHM WITH MEALS BEDTI ME SC Last administered on 02/23/19 12:24; Admin Dose 1 UNIT; Start 02/19/19 at 08:00 Miscellaneous Information 1 ea NOTE XX ; Start 02/18/19 at 22:30 Glucose (Glutose) 15 gm Q15M PRN PO DECREASED GLUCOSE; Start 02/18/19 at 22:30 Glucose (Glutose) 22.5 gm Q15M PRN PO DECREASED GLUCOSE; Start 02/18/19 at 22:30 Dextrose (D50w Syringe) 25 ml Q15M PRN IV DECREASED GLUCOSE; Start 02/18/19 at 22:30 Dextrose (D50w Syringe) 50 ml Q15M PRN IV DECREASED GLUCOSE; Start 02/18/19 at 22:30 Glucagon (Glucagen) 1 mg Q15M PRN IM DECREASED GLUCOSE; Start 02/18/19 at 22:30 Glucose (Glutose) 15 gm Q15M PRN BUCCAL DECREASED GLUCOSE; Start 02/18/19 at 22:30 Heparin Sodium (Porcine) (Heparin (1000 Units/ml)) 4,100 unit AFTER DIALYSIS CATHETER Last administered on 02/19/19at 12:53; Admin Dose 4,100 UNIT; Start 02/19/19 at 09:00 Famotidine (Pepcid) 20 mg HS PO Last administered on 02/23/19 21:00; Admin Dose 20 MG; Start 02/19/19 at 21:00 Epoetin Alexis-epbx (Retacrit (Esrd)) 4,000 unit MoWeFr@1700 SC Last administered on 02/22/19 18:41; Admin Dose 4,000 UNIT; Start 02/22/19 at 17:00 Insulin Glargine (Lantus) 10 units DAILY@2000 SC Last administered on 02/23/19 20:52; Admin Dose 10 UNITS; Start 02/21/19 at 20:00 Ceftriaxone Sodium 50 ml @ 100 mls/hr Q24H IVPB Last administered on 02/23/19 15:37; Admin Dose 100 MLS/HR; Start 02/23/19 at 15:00 BRISEIDA DAVID NP Feb 24, 2019 11:03
[2019-02-24] MEDS: CALCIUM ACETATE 667 MG CAP PO SCH (11:39)
--- NOTE | 2019-02-24 12:57 | CONS ---
Assessment/Plan Assessment/Plan Assessment/Plan (Daily) Hospital Course (Demo Recall) 1. End-stage renal disease on hemodialysis. 2. Sepsis with leukocytosis and lactic acidosis with staph aureus bacterimnia cynthia due to permacath s/p permcath removal , fevers subsided sp removal 3. Negative urinary tract infection, UA neg. Urine culture negative. 4. History of hypertension, currently normotensive. 5. Diabetes mellitus controlled. 6. Fevers, tachycardia, likely secondary to systemic inflammatory response syndrome/sepsis. CT of the abdomen and pelvis shows questionable gastroenteritis; 7. Normocytic normochromic anemia 2/2 chronic kidney disaease 8. Overweight Assessment/Plan (Daily) -c/w vancomycin per ID at hd center - s/p successful HD today with 17 g needle - spoke to primary nrphrologist dr arevalo and explained about using the fistula with 17 g and low blood flows -cw epogen afte HD - fu repeat bld cx neg so far - avoid bp/blood draws in LUE to preserve access -c/w Phoslo ok for dc Consultation Date/Type/Reason Admit Date/Time Feb 18, 2019 at 12:24 Initial Consult Date 02/20/19 Date/Time of Note DATE: 02/24/19 TIME: 12:55 24 HR Interval Summary Free Text/Dictation sp successful HD today with fistula Exam/Review of Systems Exam Vitals Vital Signs Date Temp Pulse Resp B/P (MAP) Pulse Ox O2 O2 Flow FiO2 Time Delivery Rate 02/24/19 97.5 90 17 138/81 100 11:33 (100) 02/24/19 Room Air 07:10 02/21/19 21 19:55 Intake and Output 02/23/19 02/23/19 02/24/19 1515:00 23:00 07:00 IntakeIntake Total 850 ml 650 ml 500 ml OutputOutput Total 600 ml BalanceBalance 850 ml 650 ml -100 ml Exam left arm immature AV fistula Constitutional: alert, oriented Respiratory: clear to auscultation Cardiovascular: regular rate and rhythm Gastrointestinal: soft Musculoskeletal: nl extremities to inspection left av fistul +brui/thrill Results Result Diagram: 02/24/19 0548 02/24/19 0548 Results 24hrs Laboratory Tests Test 02/23/19 17:32 02/23/19 20:40 02/24/19 05:48 02/24/19 07:39 Bedside Glucose 117 143 126 White Blood Count 9.4 # Red Blood Count 3.10 L Hemoglobin 9.4 L Hematocrit 26.9 L Mean Corpuscular 86.8 Volume Mean Corpuscular 30.3 Hemoglobin Mean Corpuscular 34.9 Hemoglobin Concent Red Cell Distribution 13.5 Width Platelet Count 229 # Mean Platelet Volume 10.3 Immature Granulocytes 4.400 H % Neutrophils % Segmented Neutrophils 56 % (Manual) Band Neutrophils % 11 H (Manual) Lymphocytes % Lymphocytes % 24 (Manual) Reactive Lymphocytes 1 H % (Manual) Monocytes % Monocytes % (Manual) 3 Eosinophils % Eosinophils % 3 (Manual) Basophils % Basophils % (Manual) 1 Metamyelocytes % 1 H (manual) Nucleated Red Blood 0.0 Cells % Immature Granulocytes 0.410 H # Neutrophils # Neutrophils # 5.4 (Manual) Band Neutrophils # 1.0 H Lymphocytes (Manual) 2.2 Lymphocytes # Reactive Lymphocytes 0.0 # Monocytes # Monocytes # (Manual) 0.2 L Eosinophils # Basophils # Basophils # (Manual) 0.0 Metamyelocytes # 0.0 Nucleated Red Blood Cells # Platelet Estimate NORMAL Sodium Level 144 Potassium Level 4.0 Chloride Level 106 Carbon Dioxide Level 27 Anion Gap 11 Blood Urea Nitrogen 56 H Creatinine 7.96 H Glucose Level 118 Calcium Level 8.7 Phosphorus Level 4.4 Magnesium Level 2.1 Albumin 3.7 Test 02/24/19 11:34 Bedside Glucose 113 Medications Medication Current Medications IV Flush (NS 3 ml) 3 ml PER PROTOCOL IV ; Start 02/18/19 at 13:00 Ondansetron HCl (Zofran Inj) 4 mg Q6H PRN IV NAUSEA/VOMITING Last administered on 02/18/19at 22:50; Admin Dose 4 MG; Start 02/18/19 at 13:00 Acetaminophen (Tylenol Tab) 650 mg Q6H PRN PO .PAIN 1-3 OR TEMP Last administered on 02/20/19 23:56; Admin Dose 650 MG; Start 02/18/19 at 13:00 Acetaminophen/ Hydrocodone Bitart ([place] (5/325)) 1 tab Q6H PRN PO .PAIN 4-6; Start 02/18/19 at 13:00 Morphine Sulfate (morphine) 2 mg Q4H PRN IV .PAIN 7-10 Last administered on 02/18/19at 22:57; Admin Dose 2 MG; Start 02/18/19 at 13:00 Vancomycin HCl (Vanco Iv Per Pharmacy) VANCOMYCIN PER PHARMACY PER PROTOCOL XX ; Start 02/18/19 at 13:00 Calcium Acetate (Phoslo) 667 mg WITH LUNCH PO Last administered on 02/24/19at 11:39; Admin Dose 667 MG; Start 02/19/19 at 12:00 Diagnostic Test (Pha) (Accu-Chek) 1 ea 02 XX ; Start 02/19/19 at 02:00 Insulin Aspart (Novolog Insulin Pen) NOVOLOG *MILD* ALGORITHM WITH MEALS BEDTIME SC Last administered on 02/23/19at 12:24; Admin Dose 1 UNIT; Start 02/19/19 at 08:00 Miscellaneous Information 1 ea NOTE XX ; Start 02/18/19 at 22:30 Glucose (Glutose) 15 gm Q15M PRN PO DECREASED GLUCOSE; Start 02/18/19 at 22:30 Glucose (Glutose) 22.5 gm Q15M PRN PO DECREASED GLUCOSE; Start 02/18/19 at 22:30 Dextrose (D50w Syringe) 25 ml Q15M PRN IV DECREASED GLUCOSE; Start 02/18/19 at 22:30 Dextrose (D50w Syringe) 50 ml Q15M PRN IV DECREASED GLUCOSE; Start 02/18/19 at 22:30 Glucagon (Glucagen) 1 mg Q15M PRN IM DECREASED GLUCOSE; Start 02/18/19 at 22:30 Glucose (Glutose) 15 gm Q15M PRN BUCCAL DECREASED GLUCOSE; Start 02/18/19 at 22:30 Heparin Sodium (Porcine) (Heparin (1000 Units/ml)) 4,100 unit AFTER DIALYSIS CATHETER Last administered on 02/19/19at 12:53; Admin Dose 4,100 UNIT; Start 02/19/19 at 09:00 Famotidine (Pepcid) 20 mg HS PO Last administered on 02/23/19at 21:00; Admin Dose 20 MG; Start 02/19/19 at 21:00 Epoetin Alexis-epbx (Retacrit (Esrd)) 4,000 unit MoWeFr@1700 SC Last administered on 02/22/19at 18:41; Admin Dose 4,000 UNIT; Start 02/22/19 at 17:00 Insulin Glargine (Lantus) 10 units DAILY@2000 SC Last administered on 02/23/19at 20:52; Admin Dose 10 UNITS; Start 02/21/19 at 20:00 Ceftriaxone Sodium 50 ml @ 100 mls/hr Q24H IVPB Last administered on 02/23/19at 15:37; Admin Dose 100 MLS/HR; Start 02/23/19 at 15:00 DANA CASAS MD Feb 24, 2019 12:57
--- NOTE | 2019-02-24 17:10 | DS ---
Date/Time of Note Date/Time of Note DATE: 02/24/19 TIME: 17:07 Discharge Summary Admission/Discharge Info Admit Date/Time Feb 18, 2019 at 12:24 Discharge Date/Time Feb 24, 2019 at 13:09 Discharge Diagnosis 1. Sepsis secondary to staph bacteremia- resolving 2. ESRD on HD Patient Condition: Stable Consults Infectious disease- Dr. Rosales Nephrology- Dr. Zapata Vascular surgery- Dr. Fierro Hx of Present Illness Patient is a male with past medical history significant for end-stage renal disease on hemodialysis who presents to [facility] after new onset fevers, chills, body aches, mild shortness of breath and dizziness. Patient also complains of abdominal pain with nausea and vomiting that began yesterday that is intermittent. Patient denies any chest pain, neck pain, leg pain. Patient states that he is having diarrhea. Hospital Course Patient was admitted for sepsis and determined to have bacteremia with source being his permacath. ID was consulted for antibiotic management. Nephrology was consulted for continuation of hemodialysis. Patients vascular surgery was consulted to determine if AV fistula was viable for use given had been placed 7 months prior. Patient had his permacath removed and HD was performed successfully via AVF. Patients presenting symptoms improved significantly and antibiotics were arranged as outpatient to be given with HD for 14 days total. Patient vitals remained stable and he was discharged home in good condition on Vancomycin IV with HD. Home Meds Reported Medications Insulin Glargine,Hum.rec.anlog (Basaglar Kwikpen U-100) 100 Unit/1 Ml Insuln.pen, 20 UNIT SC QHS, EA 02/18/19 Glipizide* (Glipizide*) 10 Mg Tablet, 10 MG PO AC BREAKFAST DINNER, TAB 02/18/19 Atorvastatin* (Atorvastatin*) 40 Mg Tablet, 40 MG PO QHS, #30 TAB 02/18/19 Amlodipine Besylate* (Amlodipine Besylate*) 10 Mg Tablet, 10 MG PO DAILY, #30 TAB 02/18/19 Calcium Acetate* (Calcium Acetate*) 667 Mg Capsule, 667 MG PO WITH LUNCH, #30 CAP 02/18/19 Aspirin (Low Dose Aspirin) 81 Mg Tablet., 81 MG PO DAILY, #30 TAB 02/18/19 Discontinued Reported Medications Carvedilol* (Carvedilol*) 25 Mg Tablet, 25 MG PO BID, #60 TAB 02/18/19 Discontinued Scripts Nph, Human Insulin Isophane (Humulin N) 100 Unit/Ml Solution, 18 UNIT SC BID for 30 Days, VIAL 3 Refills Prov:ELIZABETH SMITH S. 01/26/15 Ferrous Sulfate* (Ferrous Sulfate*) 325 Mg Tabec, 325 MG PO DAILY for 30 Days, 2 Refills Prov:DAHLIA SMITHP S. 01/26/15 Carvedilol* (Coreg*) 6.25 Mg Tab, 6.25 MG PO BID for 30 Days, 2 Refills Prov:NHUNG SMITHELIZABETH S. 01/26/15 Furosemide (Lasix) 40 Mg Tab, 40 MG PO DAILY for 30 Days, TAB 1 Refill Prov:ELIZABETH SMITH S. 01/26/15 [Accu-Chek Test Strip] 1 EA EA No Conflict Check, 1 EA XX 02 for 30 Days, EA 2 Refills Prov:ELIZABETH SMITH S. 01/26/15 Follow-up Plan 1. Follow up with your primary care physician in 1-2 weeks 2. Continue dialysis as previously scheduled 3. You will continue on Vancomycin with dialysis until 03/14/19 to complete treatment of your blood infection. 4. Continue all medications as prescribed except your Carvedilol was discontinued since your heart rate was running low. Please monitor your blood pressure at home and discuss with your PCP possibly restarting if needed 5. If experiencing any concerning symptoms. please go to your nearest emergency department 1. Siga con jimenez mdico de atencin primaria en 1-2 semanas 2. Contine con la dilisis segn lo programado anteriormente 3. Continuar con Vancomicina con dilisis hasta el 03/14/19 para completar el tratamiento de jimenez infeccin sangunea. 4. Contine con todos los medicamentos segn lo prescrito, excepto jimenez Carvedilol fue descontinuado ya que jimenez frecuencia cardaca se estaba agotando. Por favor, controle jimenez presin arterial en casa y discuta con jimenez PCP posiblemente reiniciando si es necesario 5. Si experimenta alguno relacionado con los sntomas. por favor vaya a jimenez departamento de emergencias ms theodore Primary Care Provider Not On Staff Doctor Time spent on discharge: > 30 minutes Pending Labs Laboratory Tests Test 02/23/19 17:32 02/23/19 20:40 02/24/19 05:48 02/24/19 07:39 Bedside 117 143 126 Glucose mg/dL (70-220) mg/dL (70-220) mg/dL (70-220) White Blood 9.4 Count 10^3/ul (4.8-1 0.8) Red Blood 3.10 Count 10^6/ul (4.70- 6.10) Hemoglobin 9.4 g/dl (14.0-18. 0) Hematocrit 26.9 % (42.0-52.0) Mean 86.8 Corpuscular fl (82.0-101.0 Volume ) Mean 30.3 Corpuscular pg (29.0-33.0) Hemoglobin Mean 34.9 Corpuscular g/dl (32.0-37. Hemoglobin Conc 0) ent Red Cell 13.5 Distribution % (11.5-14.5) Width Platelet Count 229 10^3/UL (140-4 15) Mean Platelet 10.3 Volume fl (7.4-10.4) Immature 4.400 Granulocytes % % (0.001-0.429 ) Neutrophils % % (39.0-77.0) Segmented 56 % (39-77) Neutrophils % (Manual) Band 11 % (0-4) Neutrophils % (Manual) Lymphocytes % % (15.0-51.0) Lymphocytes % 24 % (15-51) (Manual) Reactive 1 % (0-0) Lymphocytes % (Manual) Monocytes % % (0.0-11.0) Monocytes % 3 % (0-11) (Manual) Eosinophils % % (0.0-7.0) Eosinophils % 3 % (0-7) (Manual) Basophils % % (0.0-2.0) Basophils % 1 % (0-2) (Manual) Metamyelocytes 1 % (0-0) % (manual) Nucleated Red 0.0 Blood Cells % /100WBC (0.0-0 .0) Immature 0.410 Granulocytes # 10^3/ul (0.0-0 .031) Neutrophils # 10^3/ul (1.6-7 .5) Neutrophils # 5.4 (Manual) 10^3/ul (1.6-7 .5) Band 1.0 Neutrophils # 10^3/ul (0.0-0 .6) Lymphocytes 2.2 (Manual) 10^3/ul (0.8-2 .9) Lymphocytes # 10^3/ul (0.8-2 .9) Reactive 0.0 Lymphocytes # 10^3/ul (0.0-0 .0) Monocytes # 10^3/ul (0.3-0 .9) Monocytes # 0.2 (Manual) 10^3/ul (0.3-0 .9) Eosinophils # 10^3/ul (0.0-0 .5) Basophils # 10^3/ul (0.0-0 .1) Basophils # 0.0 (Manual) 10^3/ul (0.0-0 .0) Metamyelocytes 0.0 # 10^3/ul (0.0-0 .0) Nucleated Red 10^3/ul (0.0-0 Blood Cells # .0) Platelet NORMAL Estimate Sodium Level 144 mmol/L (135-14 4) Potassium 4.0 Level mmol/L (3.5-5. 1) Chloride Level 106 mmol/L (97-110 ) Carbon Dioxide 27 Level mmol/L (21-31) Anion Gap 11 (5-13) Blood Urea 56 Nitrogen mg/dl (7-20) Creatinine 7.96 mg/dl (0.61-1. 24) Glucose Level 118 mg/dl (70-220) Calcium Level 8.7 mg/dl (8.4-10. 2) Phosphorus 4.4 Level mg/dl (2.5-4.9 ) Magnesium 2.1 Level mg/dl (1.7-2.5 ) Albumin 3.7 g/dl (3.3-4.9) Test 02/24/19 11:34 Bedside 113 Glucose mg/dL (70-220) GUDELIA NORIEGA MD Feb 24, 2019 17:10
== END 2019-02-24 13:09 | disposition home or self-care (01) | DRG 314 ==
LOC: E/R 10:42 → 6WM 12:24 → SUATTDRO 12:47
PROVIDERS: ADMIT Internal Medicine; ATTEND Internal Medicine
PROC: 0JPT0XZ Removal of Tunneled Vascular Access Device from Trunk Subcutaneous Tissue and Fascia, Open Approach (ICD-10-PCS; principal; 2019-02-19)
PROC: 02PY33Z Removal of Infusion Device from Great Vessel, Percutaneous Approach (ICD-10-PCS; 2019-02-19)
PROC: 5A1D70Z Performance of Urinary Filtration, Intermittent, Less than 6 Hours Per Day (ICD-10-PCS; 2019-02-19)
DX: T80.211A Bloodstream infection due to central venous catheter, initial encounter (principal); A41.01 Sepsis due to Methicillin susceptible Staphylococcus aureus; N18.6 End stage renal disease; I12.0 Hypertensive chronic kidney disease with stage 5 chronic kidney disease or end stage renal disease; N25.81 Secondary hyperparathyroidism of renal origin; E11.22 Type 2 diabetes mellitus with diabetic chronic kidney disease; Z99.2 Dependence on renal dialysis; E11.21 Type 2 diabetes mellitus with diabetic nephropathy; E11.319 Type 2 diabetes mellitus with unspecified diabetic retinopathy without macular edema; R19.7 Diarrhea, unspecified; E78.5 Hyperlipidemia, unspecified; D64.9 Anemia, unspecified; E66.3 Overweight; R11.0 Nausea; Z68.28 Body mass index [BMI] 28.0-28.9, adult
CPT/HCPCS: 32552; 36415; 36589; 71045; 74176; 80048; 80053; 80061; 80069; 80202; 81001; 82652; 82962; 83036; 83605; 83690; 83735; 83970; 84100; 84443; 84484; 84560; 85025; 85610; 85730; 87070; 87086; 87340; 90935; 93005; 93306; 93931; 96374; 96375; J0692; J0696; J1644; J1815; J2270; J2405; J2543; J3370; J3475; J7030; J7050; Q5105